=== PATIENT | female | born 1990 | race African-American/Black ===

== ENCOUNTER 2021-12-09 06:49 | Emergency (ER) | payer MEDICAID, SELFPAY ==
--- NOTE | ~2021-12-09 | CT_ITS ---
EXAMINATION: CT ABDOMEN AND PELVIS WITH CONTRAST CLINICAL INFORMATION: Status post gastrectomy with the sleeve and abdominal pain. COMPARISON: None TECHNIQUE: Multidetector volumetric images were obtained from the superior aspect of the liver through the pubic symphysis following administration 85 mL of Omnipaque 350 intravenous contrast. Sagittal and coronal reformatted images were obtained on the technologist's workstation. Oral contrast: No This CT examination was performed using dose optimization techniques as appropriate, variously including the following: *Automated exposure control *Adjustment of mA and/or kV according to patient size (this includes techniques or standardized protocols for targeted exams where dose is matched to indication/reason for exam; i.e. extremities or head) *Use of iterative reconstruction technique DLP: 987 mGy-cm FINDINGS: LUNG BASES: The visualized lung bases are unremarkable. No pleural or pericardial effusion. LIVER, GALLBLADDER, AND BILIARY TREE: The liver is normal in size, shape, and attenuation. No focal hepatic lesion or biliary ductal dilatation is present. The gallbladder is unremarkable with no evidence of radiopaque gallstones, gallbladder wall thickening, or obvious pericholecystic inflammatory changes. PANCREAS: No pancreatic masses appreciated. The pancreatic borders are poorly defined however no definite. Pancreatic fluid is identified and no significant stranding within adjacent fat is seen however mild or early acute pancreatitis is not excluded. SPLEEN: Unremarkable. ADRENAL GLANDS: Unremarkable. KIDNEYS AND URETERS: The kidneys are normal in size, shape, and attenuation. No hydronephrosis, hydroureter, or calculi seen. No perinephric stranding. BLADDER: Unremarkable. GASTROINTESTINAL TRACT: No dilated loops of large or small bowel are identified. No free air or free fluid. Patient status post gastric surgery. No evidence of colitis. The appendix is visualized and appears unremarkable. ABDOMINAL WALL: There is a small fat-containing umbilical hernia. LYMPH NODES: No lymphadenopathy appreciated. VASCULAR: Portal vein patent. No significant calcified plaque identified within the arterial system. No abdominal aortic aneurysm. PELVIC VISCERA: Unremarkable. OSSEOUS STRUCTURES: No acute destructive bony lesion identified. CT/CT abdomen pelvis w con IMPRESSION: Status post gastric surgery with no evidence of leak. Indistinctness of the pancreatic borders which may be related to early or mild acute pancreatitis. No evidence of obstructive uropathy. No evidence of colitis or appendicitis.
[2021-12-09 07:07] VITALS: BP 155/92; PULSE 99; RESP 17; TEMP 36.7; O2SAT 100; BMI 39.6
--- NOTE | 2021-12-09 07:53 | ED_ITS ---
HPI - Nausea/Vomiting/Diarrhea General Chief complaint: Nausea/Vomiting/Diarrhea Stated complaint: abd pain surgery in dec Time Seen by Provider: 12/09/21 07:49 Source: patient Mode of arrival: ambulatory Limitations: no limitations History of Present Illness HPI Narrative: 31 years old female came in for evaluation of abdominal pain, nausea, and nonbloody watery diarrhea. Patient status post gastrectomy sleeve 2 months ago done at [place], patient lost it about 70 lb in the last 2 months, patient also is breast feeding, patient ate cauliflower rice 2 days ago then started to have nonbloody watery diarrhea continuously for the past 2 days, patient feeling nauseous, generally weak, with lightheadedness, patient reported she passed out at home. Patient is supposed to have 2 months post surgery checkup in [place] but unable to drive there. Patient also reported abdominal cramps for 2 days. No sick contacts, no bad food. Related Data Allergies Allergy/AdvReac Type Severity Reaction Status Date / Time labetalol Allergy Hives Verified 12/09/21 07:36 sunflower seed Allergy Hives Verified 12/09/21 07:36 Review of Systems Review of Systems: All other systems are reviewed and are negative Constitutional: Reports as per HPI and Reports no additional constitutional complaints Eyes: Reports as per HPI and Reports no additional eye complaints Reports system reviewed and no additional complaints, except as documented Cardiovascular: Reports as per HPI and Reports no additional cardiovascular complaints Respiratory: Reports as per HPI and Reports no additional respiratory complaints Gastrointestinal: Reports as per HPI and Reports no additional gastrointestinal complaints Genitourinary: Reports no additional female genitourinary complaints Musculoskeletal: Reports no additional musculoskeletal complaints Skin/Breast: Reports system reviewed and no additional complaints, except as docu Psychiatric: Reports no additional psychiatric complaints Endocrine: Reports no additional endocrine complaints Hematologic/Lymphatic: Reports no additional hematologic/lymphatic complaints Allergic/Immunologic: Reports no additional allergic/immunologic complaints Reports system reviewed and no additional complaints, except as documented and Reports Abnormal speech present [facility] Past Medical History Medical History Hypertension PCOS (polycystic ovarian syndrome) Pre-eclampsia Surgical History S/P gastric sleeve procedure Social History Social History Advance Directives: No Advance Directives Information Provided: No Patient : No Physical Exam Vital Signs: Vital Signs: Last Vital Signs Temp 98.6 F 12/09/21 12:05 Pulse 64 12/09/21 12:05 Resp 18 12/09/21 12:05 BP 121/52 L 12/09/21 12:05 Pulse Ox 100 12/09/21 12:05 BMI result Body Mass Index 39.6 Vital signs have been reviewed as appeared to be correct. Blood pressure normal. Heart rate normal. Respiration rate normal. Temperature normal. Oxygen saturation normal. Appearance: Alert. Oriented X3. No acute distress. Head: Normal external exam. Normocephalic. Atraumatic. No Castillo signs noted. No raccoon eyes noted Eyes: PERRLA. EOMI. Conjunctiva and sclera normal. Eyelids normal. ENT: TM's Normal. Pharynx normal. Uvula midline. Moist mucous membranes. No trismus noted. No drooling noted. No muffled voice noted. Neck: Normal inspection. Neck supple. FROM. No adenopathy. Thyroid Normal. No meningeal signs. No neck mass noted. CVS: Normal heart rate and rhythm. Heart sound normal. No murmurs noted. Pulses normal throughout. Respiratory: No respiratory distress. Painless inspiration. Breath sounds normal. No wheezes/rales/rhonchi noted. Chest nontender. No accessory muscle usage noted or decreased air movement noted. Abdomen: Soft and nontender. Bowel sounds normal in all 4 quadrants. No distention noted. No organomegaly noted. No visible injury noted. Back: No CVA tenderness. Full range of motion noted. Skin: Skin warm and dry. Normal skin color. Normal skin turgor. No rashes/lesions/lacerations noted. Extremities: No lower extremity edema. Extremities exhibit normal range of motion. Extremities nontender. Neuro: Oriented X 3. Cranial nerve exam: II-XII are grossly intact No motor deficit. No sensory deficit. Reflexes normal. Course Course Course Narrative: Assessment and plan. 31-year-old female with history of sleeve gastrectomy surgery 2 months ago, because patient moved to [place] cannot see her surgeon in [place], presented with diarrhea dehydration, patient was hypoglycemic, patient received IV fluids in the emergency department, patient now feels better, CT of the abdomen pelvis describing early or mild acute pancreatitis however serum lipase is not reflecting acute pancreatitis also patient has a nontender abdominal exam. the bariatric surgery department wellcome the patient to transfer her records further office. Patient was provided with the phone number to make an appointment with them. MDM - Nausea/Vomiting/Diarrhea Lab Data Attestation: I reviewed the patient's lab results. Result diagrams: 12/09/21 08:05 12/09/21 08:05 Labs: Lab Results 12/09/21 12/09/21 12/09/21 Range/Units 08:05 08:05 08:05 WBC 5.3 (4.8-10.8) X10*3/uL RBC 4.59 (4.20-5.50) X10*6/uL Hgb 12.6 (12.0-16.0) g/dl Hct 40.2 (37.0-47.0) % MCV 87.6 (80.0-98.0) fL MCH 27.5 (27.0-33.0) pg MCHC 31.3 (31.0-35.0) g/dl RDW 15.9 (11.0-16.0) % Plt Count 234 (160-400) X10*3/uL MPV 10.8 (9.4-12.3) fL Immature Gran % (Auto) 0.2 (0.0-0.4) % Neut % (Auto) 68.2 (45-73) % Lymph % (Auto) 21.2 (20-40) % [place] % (Auto) 9.2 (2-11) % Eos % (Auto) 0.8 (0-4) % Baso % (Auto) 0.4 (0-2) % Lymph # (Auto) 1.1 L (1.2-4.9) X10*3/uL Montgomery # (Auto) 0.5 (0.1-1.2) X10*3/uL Eos # (Auto) 0.0 (0.0-0.4) X10*3/uL Baso # (Auto) 0.0 (0.0-0.2) X10*3/uL Abs Immat Gran (auto) 0.01 (0.00-0.03) X10*3/uL Absolute Neuts (auto) 3.6 (2.0-8.3) x10*3/uL Absolute Nucleated RBC 0.000 (0.0-0.012) X10*3/uL Nucleated RBC % (auto) 0.0 (0.0-0.2) /100WBC Sodium 138 (135-145) mmol/L Potassium 4.1 (3.3-5.1) mmol/L Chloride 107 (96-108) mmol/L Carbon Dioxide 15 L (22-29) mmol/L Anion Gap 20 (12-20) BUN 8 L (9-16) mg/dL Creatinine 0.83 (0.5-1.4) mg/dL Estim Creat Clear Calc 123.1 Estimated GFR > 60 Random Glucose 58 L* (60-115) mg/dL Calcium 10.0 (8.4-10.2) mg/dL Total Bilirubin 0.6 (0.0-1.0) mg/dL Direct Bilirubin 0.2 (0.0-0.5) mg/dL AST 39 H (5-31) U/L ALT 14 (0-31) U/L Alkaline Phosphatase 63 (39-117) U/L Total Protein 7.2 (6.5-8.0) g/dL Albumin 4.0 (3.5-5.0) g/dL Lipase 28 (8-78) U/L Beta HCG, Quant < 2 mIU/mL Urine Color Urine Appearance Urine pH (5.0-8.0) Ur Specific [place] (1.005-1.025) Urine Protein (NEG-TRACE) MG/DL Urine Glucose (UA) (NEG) MG/DL Urine Ketones (NEG) MG/DL Urine Blood (NEG) Urine Nitrite (NEG) Ur Leukocyte Esterase (NEG) Urine RBC (0) /HPF Urine WBC (0-4) /HPF Ur Squamous Epith Cells /LPF Urine Bacteria /LPF Urine Test (NEGATIVE) COVID-19 ([facility]ILIA) Negative (Negative) COVID-19 Clin Com See Note 12/09/21 12/09/21 Range/Units 11:21 11:21 WBC (4.8-10.8) X10*3/uL RBC (4.20-5.50) X10*6/uL Hgb (12.0-16.0) g/dl Hct (37.0-47.0) % MCV (80.0-98.0) fL MCH (27.0-33.0) pg MCHC (31.0-35.0) g/dl RDW (11.0-16.0) % Plt Count (160-400) X10*3/uL MPV (9.4-12.3) fL Immature Gran % (Auto) (0.0-0.4) % Neut % (Auto) (45-73) % Lymph % (Auto) (20-40) % Montgomery % (Auto) (2-11) % Eos % (Auto) (0-4) % Baso % (Auto) (0-2) % Lymph # (Auto) (1.2-4.9) X10*3/uL Montgomery # (Auto) (0.1-1.2) X10*3/uL Eos # (Auto) (0.0-0.4) X10*3/uL Baso # (Auto) (0.0-0.2) X10*3/uL Abs Immat Gran (auto) (0.00-0.03) X10*3/uL Absolute Neuts (auto) (2.0-8.3) x10*3/uL Absolute Nucleated RBC (0.0-0.012) X10*3/uL Nucleated RBC % (auto) (0.0-0.2) /100WBC Sodium (135-145) mmol/L Potassium (3.3-5.1) mmol/L Chloride (96-108) mmol/L Carbon Dioxide (22-29) mmol/L Anion Gap (12-20) BUN (9-16) mg/dL Creatinine (0.5-1.4) mg/dL Estim Creat Clear Calc Estimated GFR Random Glucose (60-115) mg/dL Calcium (8.4-10.2) mg/dL Total Bilirubin (0.0-1.0) mg/dL Direct Bilirubin (0.0-0.5) mg/dL AST (5-31) U/L ALT (0-31) U/L Alkaline Phosphatase (39-117) U/L Total Protein (6.5-8.0) g/dL Albumin (3.5-5.0) g/dL Lipase (8-78) U/L Beta HCG, Quant mIU/mL Urine Color YELLOW Urine Appearance CLEAR Urine pH 6.0 (5.0-8.0) Ur Specific [place] 1.025 (1.005-1.025) Urine Protein NEG (NEG-TRACE) MG/DL Urine Glucose (UA) NEG (NEG) MG/DL Urine Ketones >=80 (NEG) MG/DL Urine Blood NEG (NEG) Urine Nitrite NEG (NEG) Ur Leukocyte Esterase NEG (NEG) Urine RBC 0 (0) /HPF Urine WBC 0 (0-4) /HPF Ur Squamous Epith Cells TRACE /LPF Urine Bacteria NONE /LPF Urine Test NEGATIVE (NEGATIVE) COVID-19 ([facility]ILIA) (Negative) COVID-19 Clin Com Imaging Data CT scan - abdomen: Attestation: I personally reviewed and interpreted this imaging study as follows: Radiologist's impression: Status post gastric surgery with no evidence of leak. ? Indistinctness of the pancreatic borders which may be related to early or mild acute pancreatitis. ? No evidence of obstructive uropathy. ? No evidence of colitis or appendicitis.? ? ? Discharge Plan Discharge Clinical Impression: Dehydration, Diarrhea, Hypoglycemia Patient Disposition: Home, Self-Care Instructions: Dehydration (ED), Non-diabetic Hypoglycemia (ED) Additional Instructions: Call our bariatric surgery department at [phone] please mention that the ED staff contacted [facility]. Referrals: Enrique Ruiz MD [Physician] - 2 days
[2021-12-09 08:09] LABS: MANUAL DIFF FLAG NO
[2021-12-09] MEDS: 0.9 % Sodium Chloride 1,779 ML 1779 ML IV (08:09)
[2021-12-09 08:11] LABS: Basophils Percent Auto 0.4 % (0-2); Eosinophils Percent Auto 0.8 % (0-4); Hematocrit 40.2 % (37.0-47.0); Hemoglobin 12.6 g/dl (12.0-16.0); Imm Gran Abs Auto 0.01 X10*3/uL (0.00-0.03); Imm Gran Pct Auto 0.2 % (0.0-0.4); Lymphocytes Absolute Auto 1.1 X10*3/uL (1.2-4.9); Lymphocytes Percent Auto 21.2 % (20-40); Mean Corpuscular HGB Conc 31.3 g/dl (31.0-35.0); Mean Corpuscular Hemoglobin 27.5 pg (27.0-33.0); Mean Corpuscular Volume 87.6 fL (80.0-98.0); Mean Platelet Volume 10.8 fL (9.4-12.3); Monocytes Absolute Auto 0.5 X10*3/uL (0.1-1.2); Monocytes Percent Auto 9.2 % (2-11); Neutrophils Absolute Auto 3.6 x10*3/uL (2.0-8.3); Neutrophils Percent Auto 68.2 % (45-73); Platelet Count 234 X10*3/uL (160-400); Red Blood Count 4.59 X10*6/uL (4.20-5.50); Red Cell Distribution Width 15.9 % (11.0-16.0); White Blood Count 5.3 X10*3/uL (4.8-10.8)
[2021-12-09 08:28] LABS: Alanine Aminotransferase 14 U/L (0-31); Alkaline Phosphatase 63 U/L (39-117); Anion Gap 20 (12-20); Aspartate Amino Transferase 39 U/L (5-31); Bilirubin Direct 0.2 mg/dL (0.0-0.5); Bilirubin Total 0.6 mg/dL (0.0-1.0); Blood Urea Nitrogen 8 mg/dL (9-16); Carbon Dioxide 15 mmol/L (22-29); Chloride 107 mmol/L (96-108); Creatinine Clr Calc Pharmacy 123.1; Estimated Glomerular Filt Rate > 60; Glucose Random 58 mg/dL (60-115); Lipase 28 U/L (8-78); Potassium 4.1 mmol/L (3.3-5.1); Sodium 138 mmol/L (135-145); Total Protein 7.2 g/dL (6.5-8.0)
[2021-12-09 08:31] LABS: COVID-19 Test Negative (Negative)
[2021-12-09 08:48] VITALS: BP 157/104; PULSE 73; RESP 16; O2SAT 100
[2021-12-09 10:37] LABS: HCG Quantitative < 2 mIU/mL
[2021-12-09 10:41] VITALS: BP 143/83; PULSE 71; RESP 12; O2SAT 100
[2021-12-09 10:42] VITALS: BP 148/93; PULSE 78
[2021-12-09 10:44] VITALS: BP 130/97; PULSE 95
[2021-12-09] MEDS: iohexoL 350 MG/ML 100 ML INFUS..BTL IV (11:17)
[2021-12-09 11:35] LABS: Appearance Urine CLEAR; Color Urine YELLOW; Glucose Urine UA NEG (NEG); Leukocyte Esterase Urine NEG (NEG); Nitrite Urine NEG (NEG); Specific Gravity - Urine 1.025 (1.005-1.025); Urine Blood NEG (NEG); Urine Ketones >=80 MG/DL (NEG); Urine Protein NEG (NEG-TRACE)
[2021-12-09 11:36] LABS: UPreg QC Valid YES; Urine Pregnancy NEGATIVE (NEGATIVE)
[2021-12-09 11:51] LABS: RBC Urine 0 /HPF (0); Squamous Epithelial Cell Urine TRACE /LPF; WBC Urine 0 /HPF (0-4)
[2021-12-09 12:05] VITALS: BP 121/52; PULSE 64; RESP 18; TEMP 37; O2SAT 100
== END 2021-12-09 14:07 | disposition home or self-care (01) ==
PROVIDERS: Emergency Provider Emergency Medicine; PCP Nurse Practitioner Family
DX: E86.0 Dehydration (principal); R19.7 Diarrhea, unspecified; E16.2 Hypoglycemia, unspecified; I10 Essential (primary) hypertension; Z20.822 Contact with and (suspected) exposure to COVID-19; Z98.84 Bariatric surgery status
CPT/HCPCS: 36415; 74177; 80048; 80076; 81001; 81025; 83690; 84702; 85025; 87635; 96360; 99284; Q9967

== ENCOUNTER → 2022-01-14 10:52 | Outpatient (BNVA) | payer MEDICAID, SELFPAY | PROVIDERS: PCP Nurse Practitioner Family; Referring Provider Nurse Practitioner Family; Visit Provider Physician Assistant | DX: E66.9 Obesity, unspecified (principal); Z68.36 Body mass index [BMI] 36.0-36.9, adult; R03.0 Elevated blood-pressure reading, without diagnosis of hypertension | CPT/HCPCS: 99202 ==

== ENCOUNTER → 2022-01-19 08:19 | Outpatient (BNVA) | payer MEDICAID, SELFPAY | PROVIDERS: PCP Nurse Practitioner Family; Visit Provider Dietitian, Registered | DX: E66.9 Obesity, unspecified (principal); Z71.3 Dietary counseling and surveillance | CPT/HCPCS: 97802 ==

== ENCOUNTER → 2022-01-27 08:04 | Outpatient (BNVA) | payer MEDICAID, SELFPAY | PROVIDERS: PCP Nurse Practitioner Family; Visit Provider Physician Assistant | DX: Z13.89 Encounter for screening for other disorder (principal) ==

== ENCOUNTER 2022-01-31 07:08 | Outpatient (REF) | payer MEDICAID, SELFPAY ==
[2022-01-31 08:20] LABS: Estimated Average Glucose 97 mg/dL
[2022-01-31 08:34] LABS: C Reactive Protein 0.49 mg/dL (< or = 0.50); Cholesterol 179 mg/dL; HDL Cholesterol 37 mg/dL; LDL Cholesterol Calculated 135 mg/dl; Triglycerides 37 mg/dL
[2022-01-31 08:45] LABS: Insulin 11 uU/mL (2-29); TSH reflex Free T4 1.34 uIU/mL (0.32-4.0)
[2022-02-04 07:01] LABS: Zinc 70 mcg/dL (60-130)
[2022-02-05 12:12] LABS: Vitamin B1 7 nmol/L (8-30)
[2022-02-05 18:36] LABS: Vitamin A 34 mcg/dL (38-98)
== END 2022-01-31 07:09 | disposition home or self-care (01) ==
LOC: HO.LAB 07:08
PROVIDERS: PCP Nurse Practitioner Family; Visit Provider Physician Assistant
DX: O99.210 Obesity complicating pregnancy, unspecified trimester (principal); E66.9 Obesity, unspecified; O24.419 Gestational diabetes mellitus in pregnancy, unspecified control; O26.899 Other specified pregnancy related conditions, unspecified trimester; R03.0 Elevated blood-pressure reading, without diagnosis of hypertension; Z98.890 Other specified postprocedural states; Z90.3 Acquired absence of stomach [part of]
CPT/HCPCS: 36415; 80061; 83036; 83525; 84425; 84443; 84590; 84630; 86140

== ENCOUNTER → 2022-02-01 08:02 | Outpatient (BNVA) | payer MEDICAID, SELFPAY | PROVIDERS: PCP Nurse Practitioner Family; Referring Provider Physician Assistant; Visit Provider Dietitian, Registered | DX: E66.9 Obesity, unspecified (principal); Z68.35 Body mass index [BMI] 35.0-35.9, adult | CPT/HCPCS: 97803 ==

== ENCOUNTER 2022-03-20 10:40 | Emergency (ER) | payer MEDICAID, SELFPAY ==
[2022-03-20 11:01] VITALS: BP 143/88; PULSE 80; RESP 18; TEMP 36.2; O2SAT 99; BMI 35.2
--- NOTE | 2022-03-20 11:29 | ED.SKABFB ---
HPI - Skin/Abscess/Foreign Bdy General Chief complaint: Skin/Abscess/Foreign Body Stated complaint: Rash on breast Time Seen by Provider: 03/20/22 11:09 Source: patient Mode of arrival: ambulatory Limitations: no limitations History of Present Illness HPI narrative: Patient presents emergency department for evaluation of a rash to the bilateral breast. She reports her son is currently being treated for oral thrush, he is exclusively . States that her nipples are pink, red and painful. Denies fevers, chills, breast pain, erythema, swelling, impaired . Related Data Home Medications Medication Instructions Recorded Confirmed cholecalciferol (vitamin D3) 50 50 mcg PO DAILY 01/14/22 01/14/22 mcg (2,000 unit) capsule [id number] 45 mg-folic cap PO DAILY cap 01/14/22 01/14/22 acid 800 mcg-vit K 120 mcg capsule (Bariatric Multivitamins) sertraline 50 mg tablet (Zoloft) 50 mg PO DAILY 01/14/22 01/14/22 Previous Rx's Medication Instructions Recorded vitamin A palmitate 10,000 unit 10,000 unit PO DAILY #30 tab 02/07/22 tablet miconazole nitrate 2 % topical 1 appl TOPICAL BID #71 g 03/20/22 ointment Allergies Allergy/AdvReac Type Severity Reaction Status Date / Time labetalol Allergy Hives Verified 01/14/22 11:06 sunflower seed Allergy Hives Verified 01/14/22 11:06 Review of Systems Review of Systems: Breast: Positive rash Yes all other systems are reviewed and are negative PMFSH Past Medical History Attestation statement: The following information was validated with the patient. Source: old records reviewed Medical History Hypertension PCOS (polycystic ovarian syndrome) Pre-eclampsia Surgical History Hx of section S/P gastric sleeve procedure Family History Family History Mother Stroke Hypertension Father No problems noted. Brother No problems noted. Brother No problems noted. Sister No problems noted. Sister No problems noted. Son Asthma ADHD Heart murmur Son No problems noted. Social History Social History Alcohol intake: current Alcohol intake frequency: does not drink Patient Tobacco Use Status: Never used Tobacco Advance Directives: No Advance Directives Information Provided: Yes Physical Exam Vital Signs: Vital Signs: Last Vital Signs Temp 97.2 F 03/20/22 11:01 Pulse 80 03/20/22 11:01 Resp 18 03/20/22 11:01 BP 143/88 H 03/20/22 11:01 Pulse Ox 99 03/20/22 11:01 BMI result Body Mass Index 35.2 Vital signs have been reviewed and appeared to be correct. Hypertensive? Heart rate normal.? Respiration rate normal. Temperature normal.? Oxygen saturation normal. Appearance: Alert.?Oriented to person, place and time. No acute distress.?Normal affect. Eyes: Pupils equal, round and reactive to light.? ENT: Pharynx normal.?? Neck: Normal inspection.? Neck supple.?? CVS: Heart sounds normal. Normal heart rate and rhythm.? Pulses normal.?? Respiratory: No respiratory distress.? Lung sounds clear to auscultation bilaterally?? Abdomen: Soft and non-tender. Skin: Skin warm and dry.? Normal skin color.? Breast: Bilateral areola was with mild erythema, dry cracked skin, no fissures. Extremities: No lower extremity edema.? Neuro: Moves all extremities spontaneously. Sensation intact bilaterally. No motor deficits. Ambulates with normal steady gait. Course Course Course Narrative: Patient is a 32-year-old female presenting to the emergency department for a rash to the bilateral breasts, who son is currently exclusively breast feeding and being treated for oral thrush. She has not yet trialed any treatment. Breasts are not erythematous, red, swollen, or engorged, no axillary adenopathy or pain, therfore not consistent with mastitis. consistent with candidal infection of the breast, discussed treatment with miconazole cream, propria application and cleansing, advised use of bacitracin should fissures developed, advised follow-up with primary care provider in 1 week if symptoms not completely resolved. In addition did advise that she should continue applying miconazole for 1-2 weeks after resolution of the rash. Discussed reasons to return back to the emergency department. All questions were answered and she was discharged home stable condition. MDM - Skin/Abscess/Foreign Bdy Medical Records Attestation: I reviewed the patient's medical records. Discharge Plan Discharge Clinical Impression: Candidiasis of breast Patient Disposition: Home, Self-Care Instructions: Yeast Infection (ED) Additional Instructions: As we discussed, after breast-feeding cleanse the breast/areola with mild soap and water, pat dry. Apply miconazole cream a light layer. You may cleanse the breast and areola prior to breast feeding again. you should begin to notice some improvement in 2-3 days. If symptoms are not completely resolved in 7 days please contact your primary care provider to schedule a follow-up visit. In addition, if you develop cracking in the skin/fissures as we discussed you may apply bacitracin to this. Prescriptions: New miconazole nitrate 2 % ointment 1 appl topical BID Qty: 71 0RF No Action vitamin A palmitate 10,000 unit tablet 10,000 unit PO DAILY Qty: 30 3RF cholecalciferol (vitamin D3) 50 mcg (2,000 unit) capsule 50 mcg PO DAILY 0RF sertraline [Zoloft] 50 mg tablet 50 mg PO DAILY 0RF Bariatric Multivitamins 45 mg iron- 800 mcg-120 mcg capsule PO DAILY 0RF Interventions: ED Discharge Assessment Last Done: 03/20/22 11:39 Discharge Date/Time: 03/20/22 11:40
== END 2022-03-20 11:40 | disposition home or self-care (01) ==
PROVIDERS: Emergency Provider Student in an Organized Health Care Education/Training Program; PCP Nurse Practitioner Family
DX: Z39.1 Encounter for care and examination of lactating mother (principal); B37.89 Other sites of candidiasis; R21 Rash and other nonspecific skin eruption; Z90.3 Acquired absence of stomach [part of]
CPT/HCPCS: 99283

== ENCOUNTER 2022-04-28 02:45 | Emergency (ER) | payer MEDICAID, SELFPAY ==
[2022-04-28 03:26] VITALS: BP 149/96; PULSE 68; RESP 16; TEMP 36.6; O2SAT 98; BMI 33.4
[2022-04-28 03:43] LABS: Strep A Nucleic Acid Negative (Negative)
[2022-04-28 03:48] LABS: COVID-19 Test Negative (Negative)
--- NOTE | 2022-04-28 04:04 | ED_ITS ---
HPI - URI/Sore Throat General Chief Complaint: General Medical Stated Complaint: Sore throat Time Seen by Provider: 04/28/22 04:03 Source: patient Mode of arrival: ambulatory Limitations: no limitations History of Present Illness HPI Narrative: Patient complaining of sore throat since yesterday got worse today no fever no chills painful to swallow no fever no cough no shortness of breath Related Data Home Medications Medication Instructions Recorded Confirmed cholecalciferol (vitamin D3) 50 50 mcg PO DAILY 01/14/22 01/14/22 mcg (2,000 unit) capsule [id number] 45 mg-folic cap PO DAILY 01/14/22 01/14/22 acid 800 mcg-vit K 120 mcg capsule (Bariatric Multivitamins) sertraline 50 mg tablet (Zoloft) 50 mg PO DAILY 01/14/22 01/14/22 Previous Rx's Medication Instructions Recorded vitamin A palmitate 10,000 unit 10,000 unit PO DAILY #30 tabs 02/07/22 tablet miconazole nitrate 2 % topical 1 appl topical BID #71 grams 03/20/22 ointment amoxicillin 500 mg capsule 500 mg PO TID #21 caps 04/28/22 Allergies Allergy/AdvReac Type Severity Reaction Status Date / Time labetalol Allergy Hives Verified 01/14/22 11:06 sunflower seed Allergy Hives Verified 01/14/22 11:06 Review of Systems Review of Systems: Yes all other systems are reviewed and are negative [facility] Past Medical History Medical History Hypertension PCOS (polycystic ovarian syndrome) Pre-eclampsia Surgical History Hx of section S/P gastric sleeve procedure Family History Family History Mother Stroke Hypertension Father No problems noted. Brother No problems noted. Brother No problems noted. Sister No problems noted. Sister No problems noted. Son Asthma ADHD Heart murmur Son No problems noted. Social History Social History Alcohol intake: current Alcohol intake frequency: does not drink Patient Tobacco Use Status: Never used Tobacco Advance Directives: No Physical Exam Vital Signs: Vital Signs: Last Vital Signs Temp 97.8 F 04/28/22 03:26 Pulse 68 04/28/22 03:26 Resp 16 04/28/22 03:26 BP 149/96 H 04/28/22 03:26 Pulse Ox 98 04/28/22 03:26 O2 Del Method 04/28/22 03:26 BMI result Body Mass Index 33.4 Appearance: Alert. Oriented X3. No acute distress. ENT: Pharynx normal. Oral Mucosa moist no exudate tonsils normal Neck: Normal inspection. Neck supple. No lymphadenopathy CVS: Normal heart rate and rhythm. Pulses normal. Respiratory: No respiratory distress. Equal air entry bilateral, no wheezing/rales/rhonchi Skin: Skin warm and dry. Normal skin color. Normal skin turgor. Extremities: No lower extremity edema. Neuro: Oriented X 3. MDM - URI/Sore Throat Lab Data Labs: Lab Results 04/28/22 04/28/22 Range/Units 03:30 03:30 COVID-19 ([facility]) Negative (Negative) COVID-19 Clin Com See Note S. pyogenes GrpA LORENA Negative (Negative) Discharge Plan Discharge Clinical Impression: Pharyngitis Patient Disposition: Home, Self-Care Instructions: Pharyngitis (ED) Additional Instructions: Saline gargles Antibiotic as prescribed Follow-up with PCP Prescriptions: New amoxicillin 500 mg capsule 500 mg PO TID Qty: 21 0RF No Action vitamin A palmitate 10,000 unit tablet 10,000 unit PO DAILY Qty: 30 3RF miconazole nitrate 2 % ointment 1 appl topical BID Qty: 71 0RF cholecalciferol (vitamin D3) 50 mcg (2,000 unit) capsule 50 mcg PO DAILY sertraline [Zoloft] 50 mg tablet 50 mg PO DAILY Bariatric Multivitamins 45 mg iron- 800 mcg-120 mcg capsule PO DAILY
--- NOTE | 2022-04-28 04:17 | PC.NURSE ---
pt a&o, no sob or chest pain. provider in to assess pt. labs collected and sent. pt medicated per Dec and Discharged home.
[2022-04-28] MEDS: Amoxicillin 500 MG CAPSULE PO (04:22)
--- NOTE | 2022-04-28 04:25 | PC.NURSE ---
pt medicated at discharge.
== END 2022-04-28 04:26 | disposition home or self-care (01) ==
PROVIDERS: Emergency Provider Internal Medicine
DX: J02.9 Acute pharyngitis, unspecified (principal); Z20.822 Contact with and (suspected) exposure to COVID-19; Z79.899 Other long term (current) drug therapy
CPT/HCPCS: 87635; 87651; 99283; 99284

== ENCOUNTER → 2022-05-05 11:05 | Outpatient (BNVA) | payer MEDICAID, SELFPAY | PROVIDERS: Referring Provider Physician Assistant; Visit Provider Physician Assistant Surgical | DX: E66.9 Obesity, unspecified (principal); R03.0 Elevated blood-pressure reading, without diagnosis of hypertension; Z90.3 Acquired absence of stomach [part of]; Z68.32 Body mass index [BMI] 32.0-32.9, adult | CPT/HCPCS: 99212 ==

== ENCOUNTER → 2022-08-10 14:12 | Outpatient (BNVA) | payer MEDICAID, SELFPAY | PROVIDERS: Visit Provider Physician Assistant Surgical | DX: E66.9 Obesity, unspecified (principal); Z68.31 Body mass index [BMI] 31.0-31.9, adult; Z98.84 Bariatric surgery status; Z90.3 Acquired absence of stomach [part of] | CPT/HCPCS: 99212 ==

== ENCOUNTER 2022-11-25 08:44 | Emergency (ER) | payer MEDICAID, SELFPAY ==
--- NOTE | ~2022-11-25 | US_ITS ---
EXAMINATION: US OBSTETRICAL ULTRASOUND CLINICAL INFORMATION: Cramping and bleeding COMPARISON: None. LMP: 10/20/2022. Gestational age by maternal dates is 5 weeks 1 day. Estimated date of delivery by maternal dates is 07/27/2023. TECHNIQUE: Ultrasound of the maternal pelvis is performed using transabdominal and transvaginal transducers. Transvaginal imaging is performed due to inadequate visualization transabdominally. M-mode Doppler is also performed. FINDINGS: There is no intrauterine gestational sac identified. Small amount of fluid seen within the endometrial cavity. No endometrial thickening, with the endometrium with fluid measuring up to 0.3 cm. MATERNAL ADNEXA: The right maternal ovary measures 2.4 x 2.4 x 1.5 cm. The left maternal ovary measures 3.1 x 3.3 x 1.7 cm. There is no significant maternal adnexal mass. Trace pelvic ascites. US/US OB pelvic and transvaginal IMPRESSION: There is no intrauterine identified. No ectopic seen. Small amount of endometrial fluid. Close continued follow-up recommended.
[2022-11-25 08:46] VITALS: BP 150/100; PULSE 75; RESP 20; TEMP 36.6; O2SAT 100; BMI 31.1
[2022-11-25 09:15] LABS: MANUAL DIFF FLAG NO
[2022-11-25 09:18] LABS: Basophils Percent Auto 0.3 % (0-2); Eosinophils Absolute Auto 0.1 X10*3/uL (0.0-0.4); Eosinophils Percent Auto 1.2 % (0-4); Hematocrit 38.8 % (37.0-47.0); Hemoglobin 12.7 g/dl (12.0-16.0); Imm Gran Abs Auto 0.02 X10*3/uL (0.00-0.03); Imm Gran Pct Auto 0.3 % (0.0-0.4); Lymphocytes Absolute Auto 1.9 X10*3/uL (1.2-4.9); Lymphocytes Percent Auto 28.8 % (20-40); Mean Corpuscular HGB Conc 32.7 g/dl (31.0-35.0); Mean Corpuscular Volume 85.5 fL (80.0-98.0); Mean Platelet Volume 10.1 fL (9.4-12.3); Monocytes Absolute Auto 0.5 X10*3/uL (0.1-1.2); Monocytes Percent Auto 7.7 % (2-11); Neutrophils Absolute Auto 4.1 x10*3/uL (2.0-8.3); Neutrophils Percent Auto 61.7 % (45-73); Platelet Count 217 X10*3/uL (160-400); Red Blood Count 4.54 X10*6/uL (4.20-5.50); Red Cell Distribution Width 13.7 % (11.0-16.0); White Blood Count 6.6 X10*3/uL (4.8-10.8)
--- NOTE | 2022-11-25 09:38 | ED_ITS ---
HPI - General Adult General Chief complaint: Vaginal Bleeding Stated complaint: ? Miscarriage Time Seen by Provider: 11/25/22 09:19 Source: patient Mode of arrival: ambulatory History of Present Illness HPI narrative: 32-year-old female with a past medical history of HTN, PCOS, preeclampsia, presenting to the ED complaining of suspected miscarriage, patient reports LMP 10/20/2022. denies this being confirmed , reports with her PCOS does not test positive on urine or blood hCG levels until about 12 weeks gestation. States symptoms for similar to prior miscarriages, reports dizziness/lightheadedness, presyncopal episode this morning, lower abdominal cramping, and vaginal bleeding x today. reports associated nausea and vomiting. Denies taking anticoagulation. Denies LOC, headache, CP/ SOB, dysuria, vaginal discharge Onset (ago): hour(s) Related Data Home Medications Medication Instructions Recorded Confirmed [id number] 45 mg-folic cap PO DAILY 01/14/22 08/10/22 acid 800 mcg-vit K 120 mcg capsule (Bariatric Multivitamins) sertraline 50 mg tablet (Zoloft) 50 mg PO DAILY 01/14/22 08/10/22 nifedipine 30 mg tablet,extended 30 mg PO DAILY 08/10/22 08/10/22 release Previous Rx's Medication Instructions Recorded vitamin A palmitate 10,000 unit 10,000 unit PO DAILY #30 tabs 02/07/22 tablet miconazole nitrate 2 % topical 1 appl topical BID #71 grams 03/20/22 ointment clotrimazole 1 % topical cream 1 appl topical BID #45 grams 08/10/22 nitrofurantoin 100 mg PO Q12H 7 days #14 caps 11/25/22 monohydrate/macrocrystals 100 mg capsule (Macrobid) Allergies Allergy/AdvReac Type Severity Reaction Status Date / Time labetalol Allergy Hives Verified 08/10/22 14:19 sunflower seed Allergy Hives Verified 08/10/22 14:19 Review of Systems Review of Systems: Constitutional: No Fever, No Chills, +Fatigue, No Malaise ENT/Mouth: No Hearing loss, No Ear Pain, No Nasal Congestion, No sore throat Eyes: No Eye Pain, No Swelling, No Redness, No Vision Changes Cardiovascular: No Chest Pain, No SOB, No Palpitations Respiratory: No Cough, No Sputum, No Dyspnea Gastrointestinal: + Nausea, + Vomiting, No Diarrhea, No Constipation, + Abdominal pain Genitourinary: + irregular bleeding, No Dysuria, No Urinary Frequency, No Hematu glen, No Urinary Incontinence/retention, No Urgency, No Flank Pain Musculoskeletal: No joint pain, No Myalgias, No Joint Swelling Skin: No Skin Lesions, No rash Neuro: + Weakness, No Numbness, No Paresthesias, No Loss of Consciousness, +Dizziness, No Headache Yes all other systems are reviewed and are negative Constitutional: Constitutional: Reports as per HPI Neurologic: Denies Abnormal speech present FOR[facility]LY [facility], [facility] Past Medical History Attestation statement: The following information was validated with the patient. Medical History Hypertension PCOS (polycystic ovarian syndrome) Pre-eclampsia Surgical History Hx of section S/P gastric sleeve procedure Family History Family History Mother Stroke Hypertension Father No problems noted. Brother No problems noted. Brother No problems noted. Sister No problems noted. Sister No problems noted. Son Asthma ADHD Heart murmur Son No problems noted. Social History Social History Alcohol intake: current Alcohol intake frequency: holidays/special occasions only Patient Tobacco Use Status: Never used Tobacco Advance Directives: No Advance Directives Information Provided: Yes Physical Exam ED Vital Signs: Vital Signs - 24 hr 11/25/22 08:46 Temperature 97.9 F Pulse Rate 75 Respiratory Rate 20 Blood Pressure 150/100 H Pulse Oximetry 100 Oxygen Delivery Method Room Air BMI result Body Mass Index 31.1 Const General: cooperative, healthy appearing, comfortable and no acute distress Orientation/consciousness: patient oriented x3 Limitations: no limitations HENMT Head: Yes normal to inspection and Yes atraumatic Ears: hearing grossly normal bilaterally General nose exam: Normal external nose present Face and sinus: Yes normal facial exam Eyes General: appearance normal, both eyes and all related structures Pupils: Equal, round and reactive pupils present EOM: EOMs intact bilaterally Neck Neck: Yes normal visual inspection and Yes no meningeal signs Resp Effort & Inspection: normal respiratory effort and no respiratory distress Auscultation: clear to auscultation bilaterally, no crackles and no rales Cardio Rate: regular rate Heart sounds: S1 normal heart sound present and S2 normal heart sound present GI Inspection: Yes normal to inspection Palpation (GI): Soft to palpation, nontender, no guarding and not rigid Other: Bimanual exam deferred General: Yes no CVA tenderness Speculum Exam - Vagina: normal vaginal discharge, no lesions and vaginal bleeding ( no active hemorrhage) OB/external & speculum: vaginal bleeding ( no active hemorrhage) Back/Spine/Pelvis Back: no CVA tenderness Skin Rashes: no rashes Wounds: no wounds Neuro General: patient oriented x3, gait normal, tone normal, no meningeal signs, no focal motor deficits and CN's II-XI intact bilaterally Cranial nerves: Yes CN's II-XII intact bilaterally and Yes Equal, round and reactive pupils present Cognition (Neuro): normal cognition Speech: No Abnormal speech present Gait exam (Neuro): Normal gait present Motor exam (neuro): 5/5 motor strength present throughout Extrem General: Yes normal to inspection Course Course Course Narrative: -[id number]-- labs reassuring. Beta-hCG negative. US OB pelvic and transvaginal IMPRESSION: There is no intrauterine identified. No ectopic seen. Small amount of endometrial fluid. Close continued follow-up recommended. > likely from vaginal bleeding, suspect patient on menses -UA infected and with blood > patient given 1st dose of p.o. Macrobid in the ED Results discussed with patient including worrisome signs and symptoms and strict return precautions, in needed close follow-up with PCP/OBGYN. Discussed when to return to the emergency department. She verbalized understanding and feel safe for discharge at this time. Medications Administered Discontinued Medications Generic Name Dose Route Start Last Admin Trade Name Freq PRN Reason Stop Dose Admin Sodium Chloride 1,000 mls @ 999 mls/hr 11/25/22 09:30 11/25/22 10:03 Ns IV 11/25/22 10:30 999 mls/hr .Q1H1M PRIMO Administration Nitrofurantoin Macrocrystals 100 mg 11/25/22 11:08 11/25/22 11:19 Nitrofurantoin Monohyd/M-Cryst 100 Mg Capsule PO 11/25/22 11:09 100 mg ONCE ONE Administration Medical Decision Making Medical Decision Making MDM Narrative: 32-year-old female with a past medical history of HTN, PCOS, preeclampsia, presenting to the ED complaining of suspected miscarriage, patient reports LMP 10/20/2022, reports dizziness/lightheadedness, presyncopal episode this morning, lower abdominal cramping, and vaginal bleeding x today. On exam hypertensive, anxious, lungs CTA, abdomen soft /nontender, no focal neuro deficits, on pelvic exam vaginal bleeding noted without active hemorrhage, no appreciable lesions/ discharge. Bimanual exam deferred. Concern for potential preganncy vs menses vs threatened vs ?missed vs ?ovarian cyst. Lower suspicion for ovarian torsion, appendicitis/ diverticulitis, ACS or PE plan: EKG, labs, UA, ABO, pelvic ultrasound, IVF, re-evaluate Please refer to course for remaining clinical decision making, interpretation of labs/imaging results, and discussions with consultants and/or family members. Differential Diagnosis Differential Diagnoses: The differential diagnosis associated with the presenta tion includes as above Lab Data [facility] Lab Attestation statement: I reviewed the patient's lab results. 11/25/22 09:10 11/25/22 09:10 Labs: Lab Results 11/25/22 11/25/22 11/25/22 Range/Units 09:10 09:10 10:04 WBC 6.6 (4.8-10.8) X10*3/uL RBC 4.54 (4.20-5.50) X10*6/uL Hgb 12.7 (12.0-16.0) g/dl Hct 38.8 (37.0-47.0) % MCV 85.5 (80.0-98.0) fL MCH 28.0 (27.0-33.0) pg MCHC 32.7 (31.0-35.0) g/dl RDW 13.7 (11.0-16.0) % Plt Count 217 (160-400) X10*3/uL MPV 10.1 (9.4-12.3) fL Immature Gran % (Auto) 0.3 (0.0-0.4) % Neut % (Auto) 61.7 (45-73) % Lymph % (Auto) 28.8 (20-40) % [place] % (Auto) 7.7 (2-11) % Eos % (Auto) 1.2 (0-4) % Baso % (Auto) 0.3 (0-2) % Lymph # (Auto) 1.9 (1.2-4.9) X10*3/uL [place] # (Auto) 0.5 (0.1-1.2) X10*3/uL Eos # (Auto) 0.1 (0.0-0.4) X10*3/uL Baso # (Auto) 0.0 (0.0-0.2) X10*3/uL Abs Immat Gran (auto) 0.02 (0.00-0.03) X10*3/uL Absolute Neuts (auto) 4.1 (2.0-8.3) x10*3/uL Absolute Nucleated RBC 0.000 (0.0-0.012) X10*3/uL Nucleated RBC % (auto) 0.0 (0.0-0.2) /100WBC Sodium 140 (135-145) mmol/L Potassium 3.5 (3.3-5.1) mmol/L Chloride 110 H (96-108) mmol/L Carbon Dioxide 25 (22-29) mmol/L Anion Gap 9 L (12-20) BUN 7 L (9-16) mg/dL Creatinine 0.81 (0.5-1.4) mg/dL Estim Creat Clear Calc 110.1 Estimated GFR > 60 Random Glucose 86 (60-115) mg/dL Calcium 9.4 (8.4-10.2) mg/dL Magnesium 1.8 (1.6-2.6) mg/dL Total Bilirubin 0.9 (0.0-1.0) mg/dL AST 40 H (5-31) U/L ALT 16 (0-31) U/L Alkaline Phosphatase 62 (39-117) U/L Total Protein 6.9 (6.5-8.0) g/dL Albumin 3.9 (3.5-5.0) g/dL Lipase 15 (8-78) U/L Beta HCG, Quant < 2 mIU/mL Urine Color Urine Appearance Urine pH (5.0-9.0) Ur Specific [place] (1.005-1.025) Urine Protein (Neg-Trace) mg/dL Urine Glucose (UA) (Negative) mg/dL Urine Ketones (Negative) mg/dL Urine Blood (Negative) Urine Nitrite (Negative) Ur Leukocyte Esterase (Negative) Urine RBC (0-2) /HPF Urine WBC (0-5) /HPF Ur Squamous Epith Cells (0-2) /HPF Urine Bacteria (None Seen) Hyaline Casts (0-2) /LPF Urine Test (NEGATIVE) Blood Type O Positive 11/25/22 11/25/22 Range/Units 10:04 10:04 WBC (4.8-10.8) X10*3/uL RBC (4.20-5.50) X10*6/uL Hgb (12.0-16.0) g/dl Hct (37.0-47.0) % MCV (80.0-98.0) fL MCH (27.0-33.0) pg MCHC (31.0-35.0) g/dl RDW (11.0-16.0) % Plt Count (160-400) X10*3/uL MPV (9.4-12.3) fL Immature Gran % (Auto) (0.0-0.4) % Neut % (Auto) (45-73) % Lymph % (Auto) (20-40) % [place] % (Auto) (2-11) % Eos % (Auto) (0-4) % Baso % (Auto) (0-2) % Lymph # (Auto) (1.2-4.9) X10*3/uL [place] # (Auto) (0.1-1.2) X10*3/uL Eos # (Auto) (0.0-0.4) X10*3/uL Baso # (Auto) (0.0-0.2) X10*3/uL Abs Immat Gran (auto) (0.00-0.03) X10*3/uL Absolute Neuts (auto) (2.0-8.3) x10*3/uL Absolute Nucleated RBC (0.0-0.012) X10*3/uL Nucleated RBC % (auto) (0.0-0.2) /100WBC Sodium (135-145) mmol/L Potassium (3.3-5.1) mmol/L Chloride (96-108) mmol/L Carbon Dioxide (22-29) mmol/L Anion Gap (12-20) BUN (9-16) mg/dL Creatinine (0.5-1.4) mg/dL Estim Creat Clear Calc Estimated GFR Random Glucose (60-115) mg/dL Calcium (8.4-10.2) mg/dL Magnesium (1.6-2.6) mg/dL Total Bilirubin (0.0-1.0) mg/dL AST (5-31) U/L ALT (0-31) U/L Alkaline Phosphatase (39-117) U/L Total Protein (6.5-8.0) g/dL Albumin (3.5-5.0) g/dL Lipase (8-78) U/L Beta HCG, Quant mIU/mL Urine Color Yellow Urine Appearance Clear Urine pH 5.5 (5.0-9.0) Ur Specific [place] 1.025 (1.005-1.025) Urine Protein Trace (Neg-Trace) mg/dL Urine Glucose (UA) Negative (Negative) mg/dL Urine Ketones Negative (Negative) mg/dL Urine Blood Large (3+) H (Negative) Urine Nitrite Negative (Negative) Ur Leukocyte Esterase Small (1+) H (Negative) Urine RBC 6-10 H (0-2) /HPF Urine WBC 21-50 H (0-5) /HPF Ur Squamous Epith Cells 3-5 (0-2) /HPF Urine Bacteria None Seen (None Seen) Hyaline Casts 0-2 (0-2) /LPF Urine Test NEGATIVE (NEGATIVE) Blood Type Independent Interpretation I performed an independent interpretation of an: EKG Radiology Impression Discussion of test interpretation with radiology: I have reviewed the radiologist's reading. Discharge Plan Discharge Clinical Impression: Vaginal bleeding, UTI (urinary tract infection) Patient Disposition: Home, Self-Care Instructions: Urinary Tract Infection in Women (ED), Menorrhagia (ED) Additional Instructions: your ultrasound does not identify an intrauterine or ectopic. There is small amount of fluid in her endometrial canal. Please call your OBGYN for close follow-up your blood work was reassuring. We did test you for STIs, the results will be back in a few days You do have a UTI, Macrobid is an antibiotic please take as prescribed If symptoms persist or worsen pain becomes constant arm bearable, you have fever, persistent unremitting pain return to the ED Prescriptions: New nitrofurantoin monohyd/m-cryst [Macrobid] 100 mg capsule 100 mg PO Q12H 7 Days Qty: 14 0RF Rx Instructions: must administer with a meal/food No Action vitamin A palmitate 10,000 unit tablet 10,000 unit PO DAILY Qty: 30 3RF miconazole nitrate 2 % ointment 1 appl topical BID Qty: 71 0RF sertraline [Zoloft] 50 mg tablet 50 mg PO DAILY Bariatric Multivitamins 45 mg iron- 800 mcg-120 mcg capsule PO DAILY nifedipine 30 mg tablet extended release 30 mg PO DAILY clotrimazole 1 % cream 1 appl topical BID Qty: 45 3RF Referrals: [facility] [place] [facility] [Provider Group]
--- NOTE | 2022-11-25 09:46 | ECG_ITS ---
Test Reason : presyncope Blood Pressure : / mmHG Vent. Rate : 064 BPM Atrial Rate : 064 BPM P-R Int : 176 ms QRS Dur : 080 ms QT Int : 398 ms P-R-T Axes : 060 010 024 degrees QTc Int : 410 ms Sinus rhythm with frequent Premature ventricular complexes Otherwise normal ECG No previous ECGs available Referred By: Zee Guevara Electronically Signed By:GIL HERNANDEZ MD
[2022-11-25 10:03] LABS: Alanine Aminotransferase 16 U/L (0-31); Albumin Level 3.9 g/dL (3.5-5.0); Alkaline Phosphatase 62 U/L (39-117); Anion Gap 9 (12-20); Aspartate Amino Transferase 40 U/L (5-31); Bilirubin Total 0.9 mg/dL (0.0-1.0); Blood Urea Nitrogen 7 mg/dL (9-16); Calcium 9.4 mg/dL (8.4-10.2); Carbon Dioxide 25 mmol/L (22-29); Chloride 110 mmol/L (96-108); Creatinine Clr Calc Pharmacy 110.1; Estimated Glomerular Filt Rate > 60; Glucose Random 86 mg/dL (60-115); Potassium 3.5 mmol/L (3.3-5.1); Sodium 140 mmol/L (135-145); Total Protein 6.9 g/dL (6.5-8.0)
[2022-11-25] MEDS: 0.9 % Sodium Chloride 1,000 ML 999 ML IV (10:03)
[2022-11-25 10:05] LABS: Lipase 15 U/L (8-78); Magnesium 1.8 mg/dL (1.6-2.6)
[2022-11-25 10:06] LABS: HCG Quantitative < 2 mIU/mL
--- NOTE | 2022-11-25 10:09 | PC.NURSE ---
Patient resting quietly on stretcher. denies pain or vaginal bleeding at this time. only c/o abd cramping and dizziness. steady gait at this time. IV inserted right hand with IVF infusing. labs draw/sent along with type and screen and rine spec. ECG being done at present. Will continue to monitor
[2022-11-25 10:14] LABS: Appearance Urine Clear; Color Urine Yellow; Glucose Urine UA Negative (Negative); Leukocyte Esterase Urine Small (1+) (Negative); Nitrite Urine Negative (Negative); PH 5.5 (5.0-9.0); Specific Gravity - Urine 1.025 (1.005-1.025); UMIC TRIGGER UACC YES; Urine Blood Large (3+) (Negative); Urine Ketones Negative (Negative); Urine Protein Trace mg/dL (Neg-Trace)
[2022-11-25 10:16] LABS: Bacteria Urine None Seen (None Seen); Hyaline Casts Urine 0-2 /LPF (0-2); UACC Culture Trigger YES; WBC Urine 21-50 /HPF (0-5)
[2022-11-25 10:20] LABS: UPreg QC Valid YES; Urine Pregnancy NEGATIVE (NEGATIVE)
[2022-11-25] MEDS: Nitrofurantoin Monohyd/M-Cryst 100 MG CAPSULE PO (11:19)
[2022-11-25 13:17] LABS: CT PCR NOT DETECTED (Not Detect.); NG PCR NOT DETECTED (Not Detect.)
[2022-11-26 15:08] LABS: BV Int Neg Control Negative (Negative); BV Int Pos Control Positive (Positive)
== END 2022-11-25 11:56 | disposition home or self-care (01) ==
PROVIDERS: Physician Assistant; Emergency Provider Student in an Organized Health Care Education/Training Program
DX: N93.9 Abnormal uterine and vaginal bleeding, unspecified (principal); N39.0 Urinary tract infection, site not specified; R55 Syncope and collapse; R25.2 Cramp and spasm; Z79.899 Other long term (current) drug therapy
CPT/HCPCS: 0353U; 36415; 76801; 76817; 80053; 81001; 81025; 83690; 83735; 84702; 85025; 86900; 86901; 87086; 87480; 87510; 87660; 93005; 96360; 96361; 99284

== ENCOUNTER → 2023-03-17 09:42 | Outpatient (BNVA) | payer OTHER, SELFPAY | PROVIDERS: PCP Nurse Practitioner Family; Visit Provider Physician Assistant Surgical | DX: E66.9 Obesity, unspecified (principal); Z90.3 Acquired absence of stomach [part of]; Z68.32 Body mass index [BMI] 32.0-32.9, adult | CPT/HCPCS: 99212 ==

== ENCOUNTER 2023-03-27 15:42 | Outpatient (REF) | payer OTHER, SELFPAY ==
[2023-03-27 16:00] LABS: MANUAL DIFF FLAG NO
[2023-03-27 16:15] LABS: Basophils Percent Auto 0.4 % (0-2); Eosinophils Absolute Auto 0.2 X10*3/uL (0.0-0.4); Eosinophils Percent Auto 3.4 % (0-4); Hematocrit 36.9 % (37.0-47.0); Hemoglobin 11.6 g/dl (12.0-16.0); Imm Gran Abs Auto 0.02 X10*3/uL (0.00-0.03); Imm Gran Pct Auto 0.4 % (0.0-0.4); Lymphocytes Absolute Auto 2.4 X10*3/uL (1.2-4.9); Lymphocytes Percent Auto 42.5 % (20-40); Mean Corpuscular HGB Conc 31.4 g/dl (31.0-35.0); Mean Corpuscular Volume 89.1 fL (80.0-98.0); Mean Platelet Volume 10.1 fL (9.4-12.3); Monocytes Absolute Auto 0.6 X10*3/uL (0.1-1.2); Neutrophils Absolute Auto 2.4 x10*3/uL (2.0-8.3); Neutrophils Percent Auto 43.3 % (45-73); Platelet Count 214 X10*3/uL (160-400); Red Blood Count 4.14 X10*6/uL (4.20-5.50); White Blood Count 5.6 X10*3/uL (4.8-10.8)
[2023-03-27 16:26] LABS: Estimated Average Glucose 100 mg/dL; Hemoglobin A1c % 5.1 %
[2023-03-27 16:57] LABS: Alanine Aminotransferase 17 U/L (0-31); Albumin Level 3.7 g/dL (3.5-5.0); Alkaline Phosphatase 72 U/L (39-117); Anion Gap 10 (12-20); Aspartate Amino Transferase 44 U/L (5-31); Bilirubin Total 0.3 mg/dL (0.0-1.0); Blood Urea Nitrogen 13 mg/dL (9-16); C Reactive Protein < 0.10 mg/dL (< or = 0.50); Calcium 9.3 mg/dL (8.4-10.2); Carbon Dioxide 21 mmol/L (22-29); Chloride 114 mmol/L (96-108); Cholesterol 155 mg/dL; Estimated Glomerular Filt Rate > 60; Glucose Random 90 mg/dL (60-115); HDL Cholesterol 55 mg/dL; Iron 80 mcg/dL (30-160); LDL Cholesterol Calculated 91 mg/dl; Percent Iron Saturation 30 % (15-50); Potassium 4.4 mmol/L (3.3-5.1); Sodium 141 mmol/L (135-145); Total Iron Binding Capacity 266 mcg/dL (228-428); Total Protein 6.8 g/dL (6.5-8.0); Triglycerides 47 mg/dL; Unsaturated Iron Binding 186 ug/dL
[2023-03-27 17:33] LABS: Ferritin 53 ng/mL (10-122); Folate 9.9 ng/mL (> or = 4.0); Insulin 16 uU/mL (2-29); TSH reflex Free T4 2.02 uIU/mL (0.32-4.0); Vitamin B12 475 pg/mL (200-900)
[2023-04-02 11:49] LABS: Calcium (PTHI) SEE COMMENTS
[2023-04-02 11:50] LABS: PTHI SEE COMMENTS
[2023-04-03 01:37] LABS: Vitamin A 39 mcg/dL (38-98)
== END 2023-03-27 15:43 | disposition home or self-care (01) ==
LOC: HO.LAB 15:42
PROVIDERS: Visit Provider Physician Assistant Surgical
DX: Z90.3 Acquired absence of stomach [part of] (principal)
CPT/HCPCS: 36415; 80053; 80061; 82306; 82607; 82728; 82746; 83036; 83525; 83540; 83970; 84425; 84443; 84590; 84630; 85025; 86140

== ENCOUNTER 2023-04-05 06:00 | Emergency (ER) | payer OTHER, SELFPAY ==
--- NOTE | ~2023-04-05 | XR_ITS ---
EXAMINATION: XR WRIST, RIGHT XR HAND, RIGHT CLINICAL INFORMATION: Injury. COMPARISON: None available. TECHNIQUE: PA, lateral, and oblique views of the right wrist and PA, lateral, and oblique views of the right hand FINDINGS: RIGHT WRIST: The bones and soft tissues are normal. No fracture. Alignment is anatomic. Joint spaces are maintained. No erosions or soft tissue calcifications. RIGHT HAND: The bones and soft tissues are normal. No fracture. Alignment is anatomic. Joint spaces are maintained. No erosions or soft tissue calcifications. XR/XR hand wrist RT IMPRESSION: Normal right hand and wrist.
[2023-04-05 06:05] VITALS: BP 152/74; PULSE 72; RESP 18; TEMP 36.6; O2SAT 99; BMI 32.1
[2023-04-05 07:05] VITALS: BP 154/88; PULSE 67; TEMP 36.4; O2SAT 99
[2023-04-05] MEDS: Lidocaine HCl 1 % MPF 2 ML VIAL INFILTRATI ×2 (07:07→07:08)
--- NOTE | 2023-04-05 07:08 | PC.NURSE ---
provider to administer the lidocaine.
--- NOTE | 2023-04-05 07:20 | ED.EXTPRO ---
HPI - Extremity Problem General Chief complaint: Extremity Injury, Upper Stated complaint: Dislocated R Thumb & Wrist Pain S/P Fall Time Seen by Provider: 04/05/23 06:34 Source: patient Mode of arrival: ambulatory Limitations: no limitations History of Present Illness HPI Narrative: This is a 33-year-old female who is right-hand dominant who had a previous dislocation to the right thumb 1 year ago who presents to the ER with complaints of right thumb pain after a trip and fall down stairs this morning landing on her right upper extremity. No head strike or loss of consciousness with the fall. Patient denies any numbness or tingling of the extremity but does report limited range of motion. Of note, patient reports since her last dislocation she has had chronic pain in the right hand has not been evaluated by any specialist. Related Data Home Medications Medication Instructions Recorded Confirmed gljpouof-dgcmnuog-vrak 45 mg-folic cap PO DAILY 01/14/22 03/17/23 acid 800 mcg-vit K 120 mcg capsule (Bariatric Multivitamins) sertraline 50 mg tablet (Zoloft) 50 mg PO DAILY 01/14/22 03/17/23 nifedipine 30 mg tablet,extended 30 mg PO DAILY 08/10/22 03/17/23 release Allergies Allergy/AdvReac Type Severity Reaction Status Date / Time labetalol Allergy Hives Verified 03/17/23 09:54 sunflower seed Allergy Hives Verified 03/17/23 09:54 Review of Systems Review of Systems: Yes all other systems are reviewed and are negative Constitutional: Constitutional: Reports no additional constitutional complaints, Denies body ache(s), Denies chills, Denies fever(s), Denies headache(s) and Denies weakness Eyes: Eyes: Reports no additional eye complaints and Denies change in vision ENT: Reports system reviewed and no additional complaints, except as documented, Denies dizziness, Denies headache(s), Denies nasal congestion, Denies nasal discharge and Denies neck pain Cardiovascular: Cardiovascular: Reports no additional cardiovascular complaints, Denies chest pain, Denies leg edema and Denies dyspnea Respiratory: Respiratory: Reports no additional respiratory complaints, Denies cough and Denies dyspnea Gastrointestinal: Gastrointestinal: Reports no additional gastrointestinal complaints, Denies abdominal pain, Denies diarrhea, Denies nausea and Denies vomiting Genitourinary: Genitourinary: Reports no additional female genitourinary complaints and Denies urinary incontinence Musculoskeletal: Musculoskeletal: Reports no additional musculoskeletal complaints, Denies back pain, Reports arthralgias, Reports joint swelling, Reports limited range of motion, Denies neck pain, Denies numbness and Denies tingling Integumentary/Breasts: Skin/Breast: Reports system reviewed and no additional complaints, except as docu and Denies rash Neurologic: Reports system reviewed and no additional complaints, except as documented, Denies Abnormal speech present, Denies dizziness, Denies headache(s), Denies numbness, Denies tingling and Denies weakness [facility] Past Medical History Attestation statement: The following information was validated with the patient. Source: old records reviewed and nursing notes reviewed Medical History Hypertension PCOS (polycystic ovarian syndrome) Pre-eclampsia Surgical History Hx of section S/P gastric sleeve procedure Family History Family History Mother Stroke Hypertension Father No problems noted. Brother No problems noted. Brother No problems noted. Sister No problems noted. Sister No problems noted. Son Asthma ADHD Heart murmur Son No problems noted. Social History Social History Alcohol intake: never Patient Tobacco Use Status: Never used Tobacco Smoked in Last 30 Days: No Use of substances other than those prescribed or required for medical reasons: No Advance Directives: No Advance Directives Information Provided: Yes Patient : No Physical Exam Vital Signs: Vital Signs: Last Vital Signs Temp 97.9 F 04/05/23 08:00 Pulse 91 04/05/23 08:00 Resp 14 04/05/23 08:00 BP 151/83 H 04/05/23 08:00 Pulse Ox 98 04/05/23 08:00 O2 Del Method Room Air 04/05/23 08:00 BMI result Body Mass Index 32.1 Const: General: cooperative, healthy appearing, comfortable and no acute distress Orientation/consciousness: patient oriented x3 Limitations: no limitations HEENT: Head: Yes normal to inspection Ears: hearing grossly normal bilaterally General nose exam: Normal external nose present Face and sinus: Yes normal facial exam Mouth: Normal oral and palatal mucosa present Throat: Yes posterior oropharynx normal Eyes: General: appearance normal, both eyes and all related structures Pupils: Equal, round and reactive pupils present Neck: Neck: Yes normal visual inspection Chest: Chest palpation & inspection: normal inspection of the chest Resp: Effort & Inspection: normal respiratory effort Auscultation: clear to auscultation bilaterally Cardio: Rate: regular rate Rhythm: regular rhythm Peripheral pulses: Peripheral pulses 2+ throughout GI: Inspection: Yes normal to inspection Palpation (GI): Soft to palpation and nontender Auscultation: normal bowel sounds Back/Spine/Pelvis: Thoracic/Lumbar Spine: thoracic and lumbar spine normal to inspection Skin: General skin exam: no rashes or lesions noted Neuro: General: patient oriented x3, no focal motor deficits and normal sensation to monofilament Cranial nerves: Yes Equal, round and reactive pupils present Cognition (Neuro): normal cognition Speech: No Abnormal speech present Gait exam (Neuro): Normal gait present Motor exam (neuro): 5/5 motor strength present throughout Extrem: Other: There is a deformity to the base of the right thumb at the MCP with limited flexion and extension Sensation is intact distal No scaphoid tenderness Full range of motion of the wrist General: Yes normal to inspection Course Course Course Narrative: On independent visualization of the x-ray I was concerned the patient may have a partially dislocated MCP. We did attempt a digital block and reduction at the bedside were unsuccessful. She may have underlying UCL injury. I did place the patient in a Velcro thumb spica splint. I will refer her to orthopedics to follow-up. This was reviewed with the patient. Reviewed worrisome signs and symptoms when to return to the emergency room. Comfortable plan for discharge home. Medications Administered Discontinued Medications Generic Name Dose Route Start Last Admin Trade Name Freq PRN Reason Stop Dose Admin Lidocaine HCl 2 ml 04/05/23 06:57 04/05/23 07:07 Lidocaine Hcl 1 % Mpf 2 Ml Vial INFILTRATI 04/05/23 06:58 2 ml ONCE ONE Administration Lidocaine HCl 2 ml 04/05/23 06:57 04/05/23 07:08 Lidocaine Hcl 1 % Mpf 2 Ml Vial INFILTRATI 04/05/23 06:58 2 ml ONCE ONE Administration Lidocaine HCl 2 ml 04/05/23 07:33 04/05/23 08:06 Lidocaine Hcl 1 % Mpf 2 Ml Vial INFILTRATI 04/05/23 07:34 Not Given ONCE ONE Lidocaine HCl 2 ml 04/05/23 07:34 04/05/23 08:06 Lidocaine Hcl 1 % Mpf 2 Ml Vial INFILTRATI 04/05/23 07:35 Not Given ONCE ONE Ondansetron HCl 4 mg 04/05/23 07:33 04/05/23 07:36 Ondansetron Odt 4 Mg Tab.Rapdis TRANSLINGU 04/05/23 07:34 4 mg ONCE ONE Administration Medical Decision Making Medical Decision Making MDM Narrative: 33-year-old female right-hand dominant with previous injury to the right thumb that was treated with reduction an emergency room in [place] 1 year ago who has had subsequent chronic pain presents to the ER with complaints of fall this morning with catching her thumb now with pain and deformity. On exam there is pain, swelling, limited range of motion noted at the right MCP Will check x-ray Differential Diagnosis Differential Diagnoses: The differential diagnosis associated with the presentation includes Dislocation, fracture, UCL injury Consult Healthcare Provider Management of the patient was discussed with: Assistant Store Manager Trainee Spoke to orthopedics concern for UCL injury (cindy) Independent Interpretation I performed an independent interpretation of an: Plain X-Ray Interpretation: I independently reviewed the x-ray. The radiologist's review that x-ray is normal. There does appear to be a dislocation at the right MCP Radiology Impression Discussion of test interpretation with radiology: I have reviewed the radiologist's reading. Radiologist Impression: [address] [address] XRay Report Signed Patient: Ms Augustine MR#: [id number] : 1990 Acct:[id number] Age/Sex: 33 / F ADM Date: 04/05/23 Loc: HO.ED Attending Dr: Ordering Physician: Generic ED Physician Date of Service: 04/05/23 Procedure(s): XR hand wrist RT Accession Number(s): [id number] cc: Generic ED Physician~ EXAMINATION: XR WRIST, RIGHT XR HAND, RIGHT CLINICAL INFORMATION: Injury.? COMPARISON: None available.? TECHNIQUE: PA, lateral, and oblique views of the right wrist and PA, lateral, and oblique views of the right hand FINDINGS: RIGHT WRIST: The bones and soft tissues are normal. No fracture. Alignment is anatomic. Joint spaces are maintained. No erosions or soft tissue calcifications.? RIGHT HAND: The bones and soft tissues are normal. No fracture. Alignment is anatomic. Joint spaces are maintained. No erosions or soft tissue calcifications.? XR/XR hand wrist RT IMPRESSION: Normal right hand and wrist. Procedures Nerve Block Nerve Block 1: Local Anesthetic: lidocaine 1% Amount of anesthesia used (mL): 5 Side: right Nerve Blocks: digital Procedure Successful: Yes Patient Tolerated Procedure: well Complications: none Orthopedic Joint Reduction Joint #1: Side: right Joint Reduction Location: finger Analgesia: nerve block Technique used: traction/counter-traction Post-reduction neuro exam: intact Post-reduction vascular: intact Post Reduction X-Ray Results: not reduced Splint Applied: Yes (velcro splint ) Patient Tolerated Procedure: well Discharge Plan Discharge Clinical Impression: Sprain of ulnar collateral ligament of metacarpophalangeal (MCP) joint of right thumb Patient Disposition: Home, Self-Care Instructions: Skier's Thumb (ED) Additional Instructions: We were concerned that your right thumb was dislocated over we attempted a reduction without success. Some of these changes on x-ray may be from a previous injury or the ligament that keeps the joint stable is injured Follow-up with orthopedics Ice to the area Tylenol for pain Prescriptions: No Action sertraline [Zoloft] 50 mg tablet 50 mg PO DAILY Bariatric Multivitamins 45 mg iron- 800 mcg-120 mcg capsule PO DAILY nifedipine 30 mg tablet extended release 30 mg PO DAILY Referrals: [facility] [Provider Group] - 1 week Stand Alone Forms: Work/School Release Interventions: ED Discharge Assessment Last Done: 04/05/23 08:35 Discharge Date/Time: 04/05/23 08:37
[2023-04-05] MEDS: Ondansetron ODT 4 MG TAB.RAPDIS TRANSLINGU (07:36)
[2023-04-05 08:00] VITALS: BP 151/83; PULSE 91; RESP 14; TEMP 36.6; O2SAT 98
--- NOTE | 2023-04-05 08:00 | PC.NURSE ---
pt is a&ox3, CMS and pulses intact, skin warm to the touch, vss, pt rates pain in her right thumb at a 9/10 (sharp/shooting pain), pt prefers no pain medication aside from tylenol d/t pt her son, lidocaine administered to the right hand by the provider,, pt awaiting reset/splint of her right hand, will continue to monitor.
== END 2023-04-05 08:37 | disposition home or self-care (01) ==
PROVIDERS: Emergency Provider Emergency Medicine; PCP Nurse Practitioner Family
DX: S63.641A Sprain of metacarpophalangeal joint of right thumb, initial encounter (principal); W10.8XXA Fall (on) (from) other stairs and steps, initial encounter; Y93.89 Activity, other specified; Y92.9 Unspecified place or not applicable; Y99.9 Unspecified external cause status
CPT/HCPCS: 26705; 73110; 73130; 99284

== ENCOUNTER 2023-04-12 08:10 | Outpatient (REF) | payer OTHER, SELFPAY ==
--- NOTE | ~2023-04-12 | XR_ITS ---
EXAMINATION: XR HAND, RIGHT CLINICAL INFORMATION: Right hand pain. Attention 1st carpometacarpal joint. COMPARISON: 04/05/2023 TECHNIQUE: PA, lateral, and oblique views of the right hand. FINDINGS: There is no evidence of acute fracture or dislocation of the right hand. There is some soft tissue swelling seen about the 1st metacarpophalangeal joint without definite bony injury/avulsion fracture. Joint spaces are maintained. Small bony density seen which appears to be the base of the 5th middle phalanx likely representing sequela of previous injury. XR/XR hand RT min 3V IMPRESSION: No acute bony abnormality of the right hand identified. Mild soft tissue swelling about the 1st metacarpophalangeal joint.
== END 2023-04-12 08:11 | disposition home or self-care (01) ==
LOC: HO.HOSX 08:10
PROVIDERS: PCP Nurse Practitioner Family; Visit Provider Orthopaedic Surgery
DX: M79.641 Pain in right hand (principal)
CPT/HCPCS: 73130; 99202

== ENCOUNTER 2023-04-27 05:58 | Day surgery (SDC) | payer OTHER, SELFPAY ==
[2023-04-27] VITALS (10 sets, daily range): BP systolic 133–156; BP diastolic 74–94; PULSE 62–77; RESP 17–20; TEMP 36.4–36.9; O2SAT 97–100; BMI 33.1
--- NOTE | ~2023-04-27 | FL_ITS ---
EXAMINATION: XR FLUOROSCOPY WITH IMAGES CLINICAL INFORMATION: Right thumb MCP ligament reconstruction COMPARISON: None available. TECHNIQUE: Fluoroscopy Supervised By: Dr. Bishop. Fluoroscopy Time: 14.84 seconds. Cumulative Dose: 0.4534 mGy. DAP: 0.37223 Gycm2. Images: 2. FINDINGS: Images demonstrate surgical instrument over the right MCP joint and first metacarpal bone of the thumb FL/FL guidance in OR IMPRESSION: Fluoroscopy guidance for right thumb MCP ligament reconstruction.
[2023-04-27 06:35] LABS: UPreg QC Valid YES; Urine Pregnancy NEGATIVE (NEGATIVE)
[2023-04-27] MEDS: Lactated Ringers 1,000 ML 100 ML IVCONT (06:43)
--- NOTE | 2023-04-27 07:18 | P.CONAN_ITS ---
[facility] Active Problems Active Problems: All Active Problems (Updated 04/24/23 @ 14:24 by Angelica Lam RN) Gestational diabetes (Acute) Obesity (Acute) Elevated BP without diagnosis of hypertension (Acute) Rupture of radial collateral ligament of right thumb (Acute) S/P gastric sleeve procedure (Acute) Past Medical History Medical History Gestational diabetes Heart murmur Hypertension PCOS (polycystic ovarian syndrome) Pre-eclampsia Family History Family History Mother Stroke Hypertension Father No problems noted. Brother No problems noted. Brother No problems noted. Sister No problems noted. Sister No problems noted. Son Asthma ADHD Heart murmur Son No problems noted. 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 Meds Allergies Allergy/AdvReac Type Severity Reaction Status Date / Time labetalol Allergy Hives Verified 04/12/23 08:24 sunflower seed Allergy Hives Verified 04/12/23 08:24 Active Medications: Current Medications Lactated Ringer's (Lr) 1,000 mls @ 100 mls/hr IVCONT .Q10H PRIMO Last Admin: 04/27/23 06:43 Dose: 100 mls/hr Home Medications Medication Instructions Recorded Confirmed Last Taken Type evedswld-wyembmmm-hcdh 45 mg-folic 1 cap PO DAILY 01/14/22 04/24/23 Unknown History acid 800 mcg-vit K 120 mcg capsule (Bariatric Multivitamins) sertraline 50 mg tablet (Zoloft) 50 mg PO DAILY 01/14/22 04/24/23 04/27/23 History nifedipine 30 mg tablet,extended 30 mg PO DAILY 08/10/22 04/24/23 04/27/23 History release albuterol 90 mcg/actuation aerosol 2 mcg inhalation QID PRN Wheezing 04/27/23 04/27/23 04/16/23 History inhaler hydralazine 25 1 cap PO QID anxiety 04/27/23 04/27/23 04/27/23 History mg-hydrochlorothiazide 25 mg capsule Exam Exam Date and Time: April 27, 202318 Height,Weight and Vital Signs: Height 5 ft 6 in Weight 92.986 kg Last Vital Signs Temp 98.3 F 04/27/23 06:23 Pulse 77 04/27/23 06:23 Resp 20 04/27/23 06:23 BP 156/94 H 04/27/23 06:23 Pulse Ox 98 04/27/23 06:23 O2 Del Method Room Air 04/27/23 06:23 Pertinent Lab Results Pertinent Lab Results: Laboratory Tests 04/27/23 06:10 Urine Test NEGATIVE Airway Mallampati Class: II TM Dist: >3cm Neck ROM: Full Loose/Missing/Broken Teeth: No Heart: RRR Lungs: CTA Assessment and Plan Assessment Anesthesia Assessment: Anesthesia Plan Discussed and Chart Reviewed Final Anesthetic Review History of Problems with Anesthesia: No NPO: Yes ASA Class: II Final Preanesthetic Review: Meds/Allgs Chart Reviewed, Consent Obtained/Reviewed and Anes Risks/Benef Reviewed Patient Risk: Low Procedure Risk: Low Anesthetic Plan Anesthetic Plan: GA and Regional Block Disposition: Standard PACU
--- NOTE | 2023-04-27 07:40 | PC.NURSE ---
nerve block by dr mejia pt tolerated well vss
--- NOTE | 2023-04-27 07:56 | MHC.SHP ---
Pre-Procedural Eval Section A Date of Service: 04/27/23 The patient is an INPATIENT: No Changes since office visit: No Cold of Flu in the past 2 weeks, No New Medical Problems, No Changes in Medication and No Patient answered all questions The History & Physical has been completed within 30 days and I have reviewed it.: Yes Section B Chief Complaint: Sprain of metacarpophalangeal joint of right thumb Allergies: Allergies Allergy/AdvReac Type Severity Reaction Status Date / Time labetalol Allergy Hives Verified 04/12/23 08:24 sunflower seed Allergy Hives Verified 04/12/23 08:24 Plan I have reviewed the history and physical and performed a pertinent physical examination on my patient. No changes have occurred unless specified. Time Spent With Patient Time: Total time managing care of this patient today ____ minutes.
--- NOTE | 2023-04-27 07:57 | W.PM.OPN ---
Operative Note Operative Note Date of Service: 04/27/23 Narrative: Operative Note Narrative: Preop diagnosis: 1. 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 Right thumb MCP joint radial collateral ligament Repair Surgeon: Ashleigh Bishop MD Anesthesia: General Anesthesia plus regional block Findings: right thumb MCP joint radial collateral ligament instability. Adequate capsuloligamentous and periosteal tissues to imbricate and repair Implants: 0.054 K-wire x1 Tourniquet time: 67 minutes EBL: 5.0 ml Specimen: none Drains: None Complications: None Disposition: Brought to the recovery room in stable condition Plan: Follow-up in 10-14 days for wound check, suture removal and pre clinic radiographs. She will be placed in a short-arm thumb spica cast at that time. Anticipate removal of the K-wire and cast at 6 weeks postop. She would then benefit from a custom thermoplastic splint with OT to wear with daytime activities for an additional 2 weeks. Indications: The patient is a [age] year old woman with a right thumb MCP joint radial collateral ligament injury with instability . The risks and benefits of operative treatment, including but not limited to risk of damage to blood vessels, nerves, tendons, infection, recurrence, persistent pain or numbness, incomplete resolution of preoperative symptoms, or need for further surgery were discussed with the patient and they wished to proceed with surgery. Procedure: Once consent was obtained patient was brought back to the operating suite and placed in the operating table in a supine position. A regional block was performed by the anesthesia team. Perioperative antibiotics and anesthesia was administered by the anesthesia team. A tourniquet was applied to the proximal aspect of the right upper extremity and the limb was prepped and draped in a standard surgical fashion. The limb was elevated exsanguinated with Esmarch bandage and the tourniquet inflated to 250 mm of mercury for a total tourniquet time of 67 minutes. a lazy-S incision was made over the lateral or radial aspect of the right thumb MCP joint. The incision was made through the skin to the subcutaneous tissues using a 15. Blade. I then dissected down to the level of the thumb abductor mechanism. The abductor tendon was identified and incised to facilitate repair. This then exposed the capsuloligamentous tissues on the radial aspect of the right thumb MCP joint. I then made an oblique incision from the proximal dorsal aspect of the MCP joint extending distally and volarly across the MCP joint through the capsule ligamentous layer. The MCP joint was appreciated. She certainly had adequate capsuloligamentous tissues to facilitate imbrication and repair. Using some 3-0 Ethibond I then imbricated and repaired the capsuloligamentous layer on the radial aspect of the MCP joint. This appeared to adequately return stability to the MCP joint, and was held in position using a single 0.054 K-wire which was then passed through the radial aspect of the metacarpal head obliquely across the joint to the ulnar aspect of the base of the proximal phalanx. Once satisfied with our repair and position of the K-wire the K-wire was bent and cut short. The abductor tendon was repaired using some 4-0 FiberWire. The wound had been copiously irrigated with normal saline. At this point the tourniquet was deflated and hemostasis obtained with a brief period of local pressure and bipolar electrocautery. The wound was copiously irrigated with normal saline. The skin edges were reapproximated with 5-0 nylon suture. The wound was infiltrated with some 1% lidocaine with epinephrine for postop pain control and a sterile dressing was applied. she was placed in a short-arm thumb spica splint. The patient appears to have tolerated the procedure well and with no complications. All digits were well vascularized conclusion of the case.
== END 2023-04-27 13:15 | disposition home or self-care (01) ==
PROVIDERS: Anesthesiology; PCP Nurse Practitioner Family; Visit Provider Orthopaedic Surgery
PROC: (CPT 26540; principal; 2023-04-27 07:30)
DX: S63.641A Sprain of metacarpophalangeal joint of right thumb, initial encounter (principal); M79.644 Pain in right finger(s); G89.29 Other chronic pain; W10.9XXA Fall (on) (from) unspecified stairs and steps, initial encounter; Y93.9 Activity, unspecified; Y92.9 Unspecified place or not applicable; Y99.8 Other external cause status; I10 Essential (primary) hypertension; R01.1 Cardiac murmur, unspecified; Z79.899 Other long term (current) drug therapy; Z98.84 Bariatric surgery status; Z88.8 Allergy status to other drugs, medicaments and biological substances
CPT/HCPCS: 26540; 81025; J0690; J2250; J3010

== ENCOUNTER → 2023-04-27 05:58 | Outpatient (BNV) | payer OTHER, SELFPAY | PROVIDERS: PCP Nurse Practitioner Family; Visit Provider Orthopaedic Surgery | DX: S63.641A Sprain of metacarpophalangeal joint of right thumb, initial encounter (principal) | CPT/HCPCS: 26540 ==

== ENCOUNTER 2023-05-02 17:31 | Emergency (ER) | payer OTHER, SELFPAY | END 2023-05-02 18:35 | disposition left against medical advice (07) | PROVIDERS: Emergency Provider Emergency Medicine | DX: M79.641 Pain in right hand (principal) ==

== ENCOUNTER 2023-05-05 19:57 | Emergency (ER) | payer OTHER, SELFPAY ==
--- NOTE | 2023-05-05 21:48 | PC.NURSE ---
Called without answer at 21:12, 21:19, and 21:30. left without being seen, unknown reason. did not alert staff of [facility].
== END 2023-05-05 22:08 | disposition left against medical advice (07) ==
LOC: HO.ED 22:08
PROVIDERS: Emergency Provider Emergency Medicine; PCP Nurse Practitioner Family
DX: Z48.00 Encounter for change or removal of nonsurgical wound dressing (principal)

== ENCOUNTER 2023-05-06 01:52 | Emergency (ER) | payer OTHER, SELFPAY ==
--- NOTE | ~2023-05-06 | XR_ITS ---
EXAMINATION: XR HAND, RIGHT CLINICAL INFORMATION: Injury after surgery COMPARISON: 04/12/2023 TECHNIQUE: PA, lateral, and oblique views of the right hand. FINDINGS: Wire is present traversing the metacarpophalangeal joint of the thumb. Overlying splint material obscures fine bony detail. Osseous alignment throughout the hand appears anatomic. No acute fracture is seen. XR/XR hand RT min 3V IMPRESSION: Postoperative changes of the thumb. No acute findings identified.
[2023-05-06 01:55] VITALS: BP 146/100; PULSE 87; RESP 16; TEMP 36.6; O2SAT 99; BMI 37.1
[2023-05-06 04:19] VITALS: BP 163/88; PULSE 72; RESP 18; TEMP 36.9; O2SAT 100
[2023-05-06 06:18] VITALS: BP 125/78; PULSE 67; RESP 18; O2SAT 98
--- NOTE | 2023-05-06 06:49 | ED_ITS ---
HPI - Extremity Problem General Chief complaint: Extremity Injury, Upper Stated complaint: 04/27 R hand surgery, feels pins shifting Time Seen by Provider: 05/06/23 06:42 Source: patient Mode of arrival: ambulatory Limitations: no limitations History of Present Illness HPI Narrative: 33-year-old female presents complaints of discomfort to right thumb, patient is postop, patient a right thumb MCP joint radial collateral ligament repair done on 04/27/2023. She reports that her splint was hit by her child at home and he dropped some juice on it, he reports he reached out to Orthopedics who wanted patient to come into the emergency department for a new splint as she cannot get into the office until Monday. Patient denies numbness and tingling at this time she tells me she sometimes gets intermittent tingling. Denies fevers and chills. She tells me she thinks the surgeries going well so far. Related Data Home Medications Medication Instructions Recorded Confirmed [id number] 45 mg-folic 1 cap PO DAILY 01/14/22 04/24/23 acid 800 mcg-vit K 120 mcg capsule (Bariatric Multivitamins) sertraline 50 mg tablet (Zoloft) 50 mg PO DAILY 01/14/22 04/24/23 nifedipine 30 mg tablet,extended 30 mg PO DAILY 08/10/22 04/24/23 release albuterol 90 mcg/actuation aerosol 2 mcg inhalation QID PRN Wheezing 04/27/23 0 04/27/23 inhaler hydralazine 25 1 cap PO QID anxiety 04/27/23 04/27/23 mg-hydrochlorothiazide 25 mg capsule Previous Rx's Medication Instructions Recorded oxycodone-acetaminophen 5 mg-325 1 tab PO Q6H PRN pain #20 tabs 04/27/23 mg tablet sennosides 8.6 mg capsule (senna) 8.6 mg PO BEDTIME #30 caps 05/01/23 Allergies Allergy/AdvReac Type Severity Reaction Status Date / Time labetalol Allergy Hives Verified 04/12/23 08:24 sunflower seed Allergy Hives Verified 04/12/23 08:24 Review of Systems Review of Systems: Constitutional : No Weight loss, No Fever, No Chills, No Fatigue, No Malaise ENT/Mouth : No sore throat, No Rhinorrhea Eyes: No Eye Pain, No Swelling, No Redness Cardiovascular : No Chest Pain, No SOB, No Dyspnea on Exertion, No Orthopnea, No Edema, No Palpitations Respiratory : No Cough, No Sputum, No Wheezing Gastrointestinal : No Nausea, No Vomiting, No Diarrhea, No Constipation, No abdominal Pain, No Hematochezia, No Melena Genitourinary : No Dysuria, No Urinary Frequency, No Hematuria, Musculoskeletal : + joint pain, No Myalgias, No Joint Swelling Skin : No Skin Lesions, No rash Neuro : No Weakness, No Numbness, No Dizziness, No Headache Psych : No Anxiety/Panic, No Depression All other systems reviewed and are negative Yes all other systems are reviewed and are negative [facility] Past Medical History Attestation statement: The following information was validated with the patient. Source: old records reviewed and nursing notes reviewed Medical History Gestational diabetes Heart murmur Hypertension PCOS (polycystic ovarian syndrome) Pre-eclampsia Surgical History Hx of section S/P gastric sleeve procedure Family History Family History Mother Stroke Hypertension Father No problems noted. Brother No problems noted. Brother No problems noted. Sister No problems noted. Sister No problems noted. Son Asthma ADHD Heart murmur Son No problems noted. 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 Oriented X3.? No acute distress.? Head: Normocephalic, atraumatic, no step-offs or deformities Eyes: Pupils equal, round and reactive to light.? ENT: Pharynx normal.? Neck: Normal inspection.? Neck supple.? CVS: Normal heart rate and rhythm.? Pulses normal.? Respiratory: No respiratory distress.? Breath sounds normal.? Abdomen: Soft and nontender.? Skin: Skin warm and dry.? Normal skin color.? Normal skin turgor.? Extremities: 5/5 strength to bilateral upper and lower extremities. Post op right hand normal healing noted no signs of infefction. 2+ radial pulses equal and b/l. Normal capillary refil to b/l UE digits. No wrist drop b/l. Normal sensation distally. ( images below) Neuro: Oriented X 3.? No motor deficit.? No sensory deficit. CN 2-12 intact Course Reevaluation(s) Reevaluation #1: X-ray of right hand with postoperative changes no acute findings. Patient adamant that she wants in a splint, at this time new splint will be placed advised follow-up with the orthopedic team. Educated patient on diagnosis and treatment plan, answered all question, patient verbalizes understanding. At this time patient will be discharged home, advised to return with new or worsening symptoms. Educated on worrisome signs and symptoms and when to return. At this time I feel comfortable discharge home. Time: 07:12 Reevaluation #2: Placed patient in a short thumb spica. Time: 07:26 Medical Decision Making Medical Decision Making [facility] Narrative: [id number] 33 year old female presents w/ right thumb pain since surgery requesting new splint as it has juice on it and it got hit by her child at home On exam 5/5 strength to bilateral upper and lower extremities. Post op right hand normal healing noted no signs of infefction. 2+ radial pulses equal and b/l. Normal capillary refil to b/l UE digits. No wrist drop b/l. Normal sensation distally. ( images below) Encouraged her to wait for a new splint untill she sees ortho on Monday, she is adamant she wants a new one and they told her to come in for a new one explained risks to patient On exam splint appears normal, no signs of neurovascular compromise, threatened limb, compartment syndrome. No signs of necrosis or infection. Plan- imaging, splint. Differential Diagnosis Differential Diagnoses: The differential diagnosis associated with the presentation includes On exam splint appears normal, no signs of neurovascular compromise, threatened limb, compartment syndrome. No signs of necrosis or infection. Admission/Observation Consideration of admission/observation: Escalation of care including admission/observation considered No indication Independent Interpretation I performed an independent interpretation of an: Plain X-Ray (XR/XR hand RT min 3V IMPRESSION: Postoperative changes of the thumb. No acute findings identified. ) Radiology Impression Discussion of test interpretation with radiology: I have reviewed the radiologist's reading. Core Measures AMI core measures followed: Yes Measure exclusions: not indicated Critical Care Time Critical Care Time Critical Care Time: No Discharge Plan Discharge Clinical Impression: Pain of right thumb Patient Disposition: Home, Self-Care Instructions: Arthralgia (ED) Additional Instructions: Take your medications as prescribed. If you were prescribed antibiotics today, it is important that you take your medication to their entirety, do not skip any doses, do not finish them early. Follow-up with your primary care provider this week. Return to the emergency department with new or worsening symptoms. Such as fevers, chills, chest pain, shortness of breath, nausea, vomiting, dizziness, headache, vision changes, lethargy In case of emergency call 911 Please call orthopedics for any complications or return to the emergency department complications include numbness, tingling, discoloration. Prescriptions: No Action senna 8.6 mg capsule 8.6 mg PO BEDTIME Qty: 30 0RF albuterol 90 mcg/actuation Aerosol 2 mcg INHALATION QID PRN (Reason: Wheezing) Hydrazide 25-25 mg Capsule 1 cap PO QID oxycodone-acetaminophen 5-325 mg tablet 1 tab PO Q6H PRN (Reason: pain) Qty: 20 0RF Rx Instructions: Partial Fill upon patient request. sertraline [Zoloft] 50 mg tablet 50 mg PO DAILY Bariatric Multivitamins 45 mg iron- 800 mcg-120 mcg capsule 1 cap PO DAILY nifedipine 30 mg tablet extended release 30 mg PO DAILY Referrals: Physician,Unknown J [Primary Care Provider] - 2 days Stand Alone Forms: Work/School Release
[2023-05-06] MEDS: Acetaminophen 325 MG TABLET 975 MG PO (07:21)
== END 2023-05-06 07:35 | disposition home or self-care (01) ==
PROVIDERS: Emergency Provider Emergency Medicine
DX: M79.641 Pain in right hand (principal); I10 Essential (primary) hypertension; T14.8XXD Other injury of unspecified body region, subsequent encounter; Z98.890 Other specified postprocedural states; X58.XXXD Exposure to other specified factors, subsequent encounter
CPT/HCPCS: 73130; 99283; 99284

== ENCOUNTER 2023-05-10 10:49 | Outpatient (REF) | payer OTHER, SELFPAY | END 2023-05-10 10:50 | disposition home or self-care (01) | LOC: HO.HOSX 10:49 | PROVIDERS: PCP Nurse Practitioner Family; Visit Provider Orthopaedic Surgery | DX: Z13.89 Encounter for screening for other disorder (principal) ==

== ENCOUNTER 2023-05-10 10:49 | Outpatient (AMB) | payer OTHER, SELFPAY ==
--- NOTE | 2023-05-10 11:13 | A.OFFVIS_ITS ---
Intake Vital Signs 05/10/23 11:14 Height 5 ft 6 in Weight 230 lb BMI 37.1 Intake Visit Reasons: PO R Th MCP RCL Rep v Recon. 04/27/23 AR Intake Note: , 33 yr old female presents today for her p/o visit for her P/O right thumb MCP RCL recon. DOS 04/27/23. Patient states she was seen in ED on 05/06/23 due to splint becoming loose. Xrays updated in office and dressing removed. Allergies labetalol Allergy (Verified 05/10/23 11:23) Hives sunflower seed Allergy (Verified 05/10/23 11:23) Hives HPI PO R Th MCP RCL Rep v Recon. 04/27/23 AR HPI Details Ms is a 33 year old right hand dominant woman who presents S/P right thumb MCP joint RCL repair, DOS: 04/27/23. She was seen in the ED on 05/06/23 after her young toddler fell onto her hand. She was evaluated and put into a thumb spica splint. She denies her dressing getting wet She says she is doing well She denies any symptoms of infection. [facility] Medical History Gestational diabetes Heart murmur Hypertension PCOS (polycystic ovarian syndrome) Pre-eclampsia Surgical History Hx of section S/P gastric sleeve procedure Family History Mother Stroke Hypertension Father No problems noted. Brother No problems noted. Brother No problems noted. Sister No problems noted. Sister No problems noted. Son Asthma ADHD Heart murmur Son No problems noted. 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 Sutures removed and Steri-Strips applied Sensation is intact Cap refill is brisk Radiographs: 3 views of the right hand from 05/06/23 were reviewed by me today in clinic. They show satisfactory reduction of the MCP joint and position of the K-wire Psych Appearance: grossly normal Affect: normal affect Attitude: cooperative Assessment & Plan Assessment & Plan (1) Rupture of radial collateral ligament of right thumb: Code(s): S63.641A - Sprain of metacarpophalangeal joint of right thumb, initial encounter Plan Assessment & Plan: 1. 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 I discussed activity modifications, she is to lift nothing heavier than a cellphone for the next two weeks She was fitted for a short arm thumb spica splint today She will perform gentle ROM exercises at home She should avoid any underwater activities at this time She should gently massage about the incision site to reduce the risk of hypersensitivity I ordered OT hand therapy to begin in 4 weeks, following removal of her K-wire. She will have a custom thermoplastic MCP thumb splint that she will wear for at least 4 weeks She will follow up in 4 weeks for K-wire removal Scribed for Ashleigh Bishop MD by Bart Russell medical aides teacher, on 05/10/23 at 11:40 AM, EST. Orders: Orders OT Evaluation and Treatment Today S63.641A - Sprain of metacarpophalangeal joint of right thumb, initial encounter Coding Level of Care Code Global (50684) Diagnoses Rupture of radial collateral ligament of right thumb S63.641F
[2023-05-10 11:14] VITALS: BMI 37.1
== END 2023-05-10 12:19 | disposition home or self-care (01) ==
PROVIDERS: PCP Nurse Practitioner Family; Visit Provider Orthopaedic Surgery
DX: S63.641A Sprain of metacarpophalangeal joint of right thumb, initial encounter (principal)
CPT/HCPCS: 99024

== ENCOUNTER 2023-05-21 13:55 | Observation (INO) | payer OTHER, SELFPAY ==
[2023-05-21] VITALS (7 sets, daily range): BP systolic 144–156; BP diastolic 72–95; PULSE 69–83; RESP 18; TEMP 36.4; O2SAT 96–100; BMI 32.8
--- NOTE | ~2023-05-21 | XR_ITS ---
EXAMINATION: XR chest 2V CLINICAL INFORMATION: Reason for Exam syncope COMPARISON: No prior chest x-ray available in our system for comparison at the time of this dictation. TECHNIQUE: XR chest 2V Lungs and Buffy: Both lungs are clear. Pleura: Normal. Costophrenic angles are sharp. No pneumothorax. Heart: The heart is normal in size. Mediastinum: The mediastinum is within normal limits.. Bones: Skeletal structures included are normal for patient's age. XR/XR chest 2V IMPRESSION: Normal chest x-ray.
--- NOTE | ~2023-05-21 | CT_ITS ---
EXAMINATION: CT HEAD WITHOUT CONTRAST CLINICAL INFORMATION: Head strike and pain status post syncope. COMPARISON: None available. TECHNIQUE: Contiguous axial imaging was performed from the skull base to vertex without intravenous administration of contrast. Coronal and sagittal reformatted images were obtained. This CT examination was performed using dose optimization techniques as appropriate, variously including the following: *Automated exposure control *Adjustment of mA and/or kV according to patient size (this includes techniques or standardized protocols for targeted exams where dose is matched to indication/reason for exam; i.e. extremities or head) *Use of iterative reconstruction technique DLP: 719 mGy-cm FINDINGS: The cortical sulci are normal. The lateral ventricles are symmetrical. Incidental patent cava septum pellucidum. The third and fourth ventricles are in their normal midline position. The basilar and prepontine cisterns are unremarkable. Incidental partial empty sella with mild expansion of the sella turcica. No suprasellar abnormality. There is no acute intra or extracerebral abnormality. There is no mass effect or midline shift. Sections through the bony calvarium are unremarkable. The paranasal sinuses are clear. The bony orbits and orbital contents are unremarkable. Mild debris is seen medially in the external auditory canals bilaterally. CT/CT head/brain wo IV con IMPRESSION: 1. No acute intracranial pathology. 2. Mild debris in the external auditory canals bilaterally could represent cerumen. Correlate with physical exam.
--- NOTE | ~2023-05-21 | CT_ITS ---
EXAMINATION: CT CERVICAL SPINE WITHOUT CONTRAST CLINICAL INFORMATION: Pain following head strike COMPARISON: None available. TECHNIQUE: CT of the cervical spine were performed without intravenous contrast. Multiplanar reformats were rendered and reviewed. This CT examination was performed using dose optimization techniques as appropriate, variously including the following: *Automated exposure control *Adjustment of mA and/or kV according to patient size (this includes techniques or standardized protocols for targeted exams where dose is matched to indication/reason for exam; i.e. extremities or head) *Use of iterative reconstruction technique DLP: 557.23 mGy-cm FINDINGS: The cervical alignment is normal. The craniocervical junction is normal. The vertebral body heights are maintained. No cervical spine fracture is seen. The paraspinal soft tissues are within normal limits. The partially imaged lung apices are clear. CT/CT cervical spine wo IV con IMPRESSION: Unremarkable examination. Fleischner guidelines were followed.
--- NOTE | 2023-05-21 14:02 | ED.GENADULT ---
HPI - General Adult General Chief complaint: Syncope Stated complaint: syncope Time Seen by Provider: 05/21/23 14:34 Related Data Home Medications Medication Instructions Recorded Confirmed sertraline 50 mg tablet (Zoloft) 50 mg PO DAILY 01/14/22 05/21/23 nifedipine 30 mg tablet,extended 30 mg PO DAILY 08/10/22 05/21/23 release albuterol sulfate 90 mcg/actuation 2 puff inhalation Q4-6H PRN 05/21/23 05/21/23 aerosol inhaler Shortness Of Breath Or Wheezing hydroxyzine HCl 25 mg tablet 25 mg PO TID PRN Anxiety 05/21/23 05/21/23 multivitamin 1 tab PO DAILY 05/21/23 05/21/23 Allergies Allergy/AdvReac Type Severity Reaction Status Date / Time labetalol Allergy Hives Verified 05/10/23 11:23 sunflower seed Allergy Hives Verified 05/10/23 11:23 [facility] Past Medical History Medical History Gestational diabetes Heart murmur Hypertension PCOS (polycystic ovarian syndrome) Pre-eclampsia Surgical History Hx of section S/P gastric sleeve procedure Family History Family History Mother Stroke Hypertension Father No problems noted. Brother No problems noted. Brother No problems noted. Sister No problems noted. Sister No problems noted. Son Asthma ADHD Heart murmur Son No problems noted. 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 Patient is a 33 year old assigned female at presenting to the emergency department after a syncopal episode. Patient states that she passed out at a restaurant and hit her head. Patient states that she was feeling lightheaded and then passed out. Labs and imaging ordered. Patient placed back in the waiting room pending room availability and results. Dr. Hernández evaluated this patient. Dr. Hernández created and completed his own separate note. Please refer to his note on 05/21/2023 for this patient's course and disposition. Medications Administered Generic Name Dose Route Start Last Admin Trade Name Freq PRN Reason Stop Dose Admin Enoxaparin Sodium 40 mg 05/21/23 18:00 05/21/23 18:09 Enoxaparin Sodium 40 Mg/0.4 Ml Syringe SUBCUT Not Given Q24H PRIMO Discontinued Medications Generic Name Dose Route Start Last Admin Trade Name Freq PRN Reason Stop Dose Admin Sodium Chloride 1,000 mls @ 999 mls/hr 05/21/23 15:15 05/21/23 17:00 Ns IVCONT 05/21/23 16:15 Infused .Q1H1M PRIMO Infusion Metoprolol Succinate 50 mg 05/21/23 16:41 05/21/23 17:38 Metoprolol Succinate Er 50 Mg Tab.Er.24h PO 05/21/23 16:42 Not Given ONCE ONE Protocol Medical Decision Making Lab Data 05/21/23 14:28 05/21/23 14:28 Labs: Lab Results 05/21/23 05/21/23 05/21/23 Range/Units 14:28 14:28 14:28 WBC 5.8 (4.8-10.8) X10*3/uL RBC 4.22 (4.20-5.50) X10*6/uL Hgb 11.9 L (12.0-16.0) g/dl Hct 36.7 L (37.0-47.0) % MCV 87.0 (80.0-98.0) fL MCH 28.2 (27.0-33.0) pg MCHC 32.4 (31.0-35.0) g/dl RDW 13.1 (11.0-16.0) % Plt Count 203 (160-400) X10*3/uL MPV 9.8 (9.4-12.3) fL Immature Gran % (Auto) 0.2 (0.0-0.4) % Neut % (Auto) 50.3 (45-73) % Lymph % (Auto) 37.3 (20-40) % [place] % (Auto) 9.3 (2-11) % Eos % (Auto) 2.6 (0-4) % Baso % (Auto) 0.3 (0-2) % Lymph # (Auto) 2.2 (1.2-4.9) X10*3/uL [place] # (Auto) 0.5 (0.1-1.2) X10*3/uL Eos # (Auto) 0.2 (0.0-0.4) X10*3/uL Baso # (Auto) 0.0 (0.0-0.2) X10*3/uL Abs Immat Gran (auto) 0.01 (0.00-0.03) X10*3/uL Absolute Neuts (auto) 2.9 (2.0-8.3) x10*3/uL Absolute Nucleated RBC 0.000 (0.0-0.012) X10*3/uL Nucleated RBC % (auto) 0.0 (0.0-0.2) /100WBC PT 11.4 (11.1-13.3) SEC INR 0.9 (0.9-1.1) APTT 34.8 (26.0-36.4) SEC Sodium 138 (135-145) mmol/L Potassium 3.9 (3.3-5.1) mmol/L Chloride 112 H (96-108) mmol/L Carbon Dioxide 19 L (22-29) mmol/L Anion Gap 11 L (12-20) BUN 13 (9-16) mg/dL Creatinine 0.78 (0.5-1.4) mg/dL Estim Creat Clear Calc 116.1 Estimated GFR > 60 Random Glucose 99 (60-115) mg/dL Calcium 9.2 (8.4-10.2) mg/dL Magnesium 2.0 (1.6-2.6) mg/dL Total Bilirubin 0.3 (0.0-1.0) mg/dL AST 32 H (5-31) U/L ALT 12 (0-31) U/L Alkaline Phosphatase 62 (39-117) U/L Troponin I High Sens (<3.5-17.0) ng/L Total Protein 6.8 (6.5-8.0) g/dL Albumin 3.6 (3.5-5.0) g/dL Beta HCG, Quant < 2 mIU/mL Urine Color Urine Appearance Urine pH (5.0-9.0) Ur Specific [place] (1.005-1.025) Urine Protein (Neg-Trace) mg/dL Urine Glucose (UA) (Negative) mg/dL Urine Ketones (Negative) mg/dL Urine Blood (Negative) Urine Nitrite (Negative) Ur Leukocyte Esterase (Negative) COVID-19 (LILIA) (Negative) COVID-19 Clin Com 05/21/23 05/21/23 05/21/23 Range/Units 14:28 14:28 16:10 WBC (4.8-10.8) X10*3/uL RBC (4.20-5.50) X10*6/uL Hgb (12.0-16.0) g/dl Hct (37.0-47.0) % MCV (80.0-98.0) fL MCH (27.0-33.0) pg MCHC (31.0-35.0) g/dl RDW (11.0-16.0) % Plt Count (160-400) X10*3/uL MPV (9.4-12.3) fL Immature Gran % (Auto) (0.0-0.4) % Neut % (Auto) (45-73) % Lymph % (Auto) (20-40) % [place] % (Auto) (2-11) % Eos % (Auto) (0-4) % Baso % (Auto) (0-2) % Lymph # (Auto) (1.2-4.9) X10*3/uL [place] # (Auto) (0.1-1.2) X10*3/uL Eos # (Auto) (0.0-0.4) X10*3/uL Baso # (Auto) (0.0-0.2) X10*3/uL Abs Immat Gran (auto) (0.00-0.03) X10*3/uL Absolute Neuts (auto) (2.0-8.3) x10*3/uL Absolute Nucleated RBC (0.0-0.012) X10*3/uL Nucleated RBC % (auto) (0.0-0.2) /100WBC PT (11.1-13.3) SEC INR (0.9-1.1) APTT (26.0-36.4) SEC Sodium (135-145) mmol/L Potassium (3.3-5.1) mmol/L Chloride (96-108) mmol/L Carbon Dioxide (22-29) mmol/L Anion Gap (12-20) BUN (9-16) mg/dL Creatinine (0.5-1.4) mg/dL Estim Creat Clear Calc Estimated GFR Random Glucose (60-115) mg/dL Calcium (8.4-10.2) mg/dL Magnesium (1.6-2.6) mg/dL Total Bilirubin (0.0-1.0) mg/dL AST (5-31) U/L ALT (0-31) U/L Alkaline Phosphatase (39-117) U/L Troponin I High Sens < 2.7 (<3.5-17.0) ng/L Total Protein (6.5-8.0) g/dL Albumin (3.5-5.0) g/dL Beta HCG, Quant mIU/mL Urine Color Yellow Urine Appearance Clear Urine pH 5.5 (5.0-9.0) Ur Specific [place] 1.020 (1.005-1.025) Urine Protein Negative (Neg-Trace) mg/dL Urine Glucose (UA) Negative (Negative) mg/dL Urine Ketones Negative (Negative) mg/dL Urine Blood Negative (Negative) Urine Nitrite Negative (Negative) Ur Leukocyte Esterase Negative (Negative) COVID-19 (LILIA) Negative (Negative) COVID-19 Clin Com See Note Discharge Plan Discharge Clinical Impression: Syncope, Bigeminy Patient Disposition: Admitted As Inpatient
--- NOTE | 2023-05-21 14:03 | ECG_ITS ---
Test Reason : SYNCOPE Blood Pressure : / mmHG Vent. Rate : 085 BPM Atrial Rate : 085 BPM P-R Int : 162 ms QRS Dur : 080 ms QT Int : 386 ms P-R-T Axes : 065 014 046 degrees QTc Int : 459 ms Sinus rhythm with frequent Premature ventricular complexes in a pattern of bigeminy Possible Left atrial enlargement Borderline ECG When compared with ECG of 25-NOV-2022 10:14, ventricular bigeminy present Referred By: Jennifer Vargas Electronically Signed By:Arcadio Corona
[2023-05-21 14:33] LABS: MANUAL DIFF FLAG NO
[2023-05-21 14:36] LABS: Basophils Percent Auto 0.3 % (0-2); Eosinophils Absolute Auto 0.2 X10*3/uL (0.0-0.4); Eosinophils Percent Auto 2.6 % (0-4); Hematocrit 36.7 % (37.0-47.0); Hemoglobin 11.9 g/dl (12.0-16.0); Imm Gran Abs Auto 0.01 X10*3/uL (0.00-0.03); Imm Gran Pct Auto 0.2 % (0.0-0.4); Lymphocytes Absolute Auto 2.2 X10*3/uL (1.2-4.9); Lymphocytes Percent Auto 37.3 % (20-40); Mean Corpuscular HGB Conc 32.4 g/dl (31.0-35.0); Mean Corpuscular Hemoglobin 28.2 pg (27.0-33.0); Mean Platelet Volume 9.8 fL (9.4-12.3); Monocytes Absolute Auto 0.5 X10*3/uL (0.1-1.2); Monocytes Percent Auto 9.3 % (2-11); Neutrophils Absolute Auto 2.9 x10*3/uL (2.0-8.3); Neutrophils Percent Auto 50.3 % (45-73); Platelet Count 203 X10*3/uL (160-400); Red Blood Count 4.22 X10*6/uL (4.20-5.50); Red Cell Distribution Width 13.1 % (11.0-16.0); White Blood Count 5.8 X10*3/uL (4.8-10.8)
[2023-05-21 14:41] LABS: INTERNATIONAL NORM RATIO 0.9 (0.9-1.1); Prothrombin Time 11.4 SEC (11.1-13.3)
[2023-05-21 14:44] LABS: Partial Thromboplastin Time 34.8 SEC (26.0-36.4)
[2023-05-21 14:49] LABS: COVID-19 Test Negative (Negative); IDNOW Serial# 08D9AD1C
[2023-05-21 14:58] LABS: Alanine Aminotransferase 12 U/L (0-31); Albumin Level 3.6 g/dL (3.5-5.0); Alkaline Phosphatase 62 U/L (39-117); Anion Gap 11 (12-20); Aspartate Amino Transferase 32 U/L (5-31); Bilirubin Total 0.3 mg/dL (0.0-1.0); Blood Urea Nitrogen 13 mg/dL (9-16); Calcium 9.2 mg/dL (8.4-10.2); Carbon Dioxide 19 mmol/L (22-29); Chloride 112 mmol/L (96-108); Creatinine Clr Calc Pharmacy 116.1; Estimated Glomerular Filt Rate > 60; Glucose Random 99 mg/dL (60-115); Potassium 3.9 mmol/L (3.3-5.1); Sodium 138 mmol/L (135-145); Total Protein 6.8 g/dL (6.5-8.0)
[2023-05-21 14:59] LABS: HCG Quantitative < 2 mIU/mL
--- NOTE | 2023-05-21 15:02 | ED_ITS ---
HPI - Syncope General Chief Complaint: Syncope Stated Complaint: syncope Time Seen by Provider: 05/21/23 14:34 Source: patient Mode of arrival: ambulatory Limitations: no limitations History of Present Illness HPI narrative: this is a 33 years old female presented to the emergency room complaining of a syncopal episode, she states that she had a syncope last night while standing up and then today she had a near syncopal episode. She denies any chest pain or shortness of breath she has history of hypertension she take nifedipine every day, she has history of gastric sleeve MD complaint: loss of consciousness Onset (ago): day(s) (1) Prodromal symptoms: none Witnessed: No Context: other (standing up) Injuries sustained associated with event: none Related Data Home Medications Medication Instructions Recorded Confirmed [id number] 45 mg-folic 1 cap PO DAILY 01/14/22 04/24/23 acid 800 mcg-vit K 120 mcg capsule (Bariatric Multivitamins) sertraline 50 mg tablet (Zoloft) 50 mg PO DAILY 01/14/22 04/24/23 nifedipine 30 mg tablet,extended 30 mg PO DAILY 08/10/22 04/24/23 release albuterol 90 mcg/actuation aerosol 2 mcg inhalation QID PRN Wheezing 04/27/23 04/27/23 inhaler hydralazine 25 1 cap PO QID anxiety 04/27/23 04/27/23 mg-hydrochlorothiazide 25 mg capsule Previous Rx's Medication Instructions Recorded oxycodone-acetaminophen 5 mg-325 1 tab PO Q6H PRN pain #20 tabs 04/27/23 mg tablet sennosides 8.6 mg capsule (senna) 8.6 mg PO BEDTIME #30 caps 05/01/23 Allergies Allergy/AdvReac Type Severity Reaction Status Date / Time labetalol Allergy Hives Verified 05/10/23 11:23 sunflower seed Allergy Hives Verified 05/10/23 11:23 Review of Systems Eyes: Eyes: Reports no additional eye complaints ENT: Reports system reviewed and no additional complaints, except as documented Cardiovascular: Cardiovascular: Reports no additional cardiovascular complaints Musculoskeletal: Musculoskeletal: Reports no additional musculoskeletal comp laints PMFSH Past Medical History Medical History Gestational diabetes Heart murmur Hypertension PCOS (polycystic ovarian syndrome) Pre-eclampsia Surgical History Hx of section S/P gastric sleeve procedure Family History Family History Mother Stroke Hypertension Father No problems noted. Brother No problems noted. Brother No problems noted. Sister No problems noted. Sister No problems noted. Son Asthma ADHD Heart murmur Son No problems noted. 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 Physical Exam Vital Signs: Vital Signs: Last Vital Signs Temp 97.5 F 05/21/23 14:00 Pulse 72 05/21/23 15:50 Resp 18 05/21/23 15:50 BP 144/95 H 05/21/23 14:00 Pulse Ox 100 05/21/23 15:55 O2 Del Method Room Air 05/21/23 15:55 BMI result Body Mass Index 32.8 Const: General: cooperative Nutritional Appearance: well nourished Orientation/consciousness: patient oriented x3 HEENT: Head: Yes normal to inspection General nose exam: Normal external nose present Face and sinus: Yes normal facial exam Neck: Neck: Yes normal visual inspection and Yes full ROM Chest: Chest palpation & inspection: normal inspection of the chest Resp: Effort & Inspection: normal respiratory effort Auscultation: clear to auscultation bilaterally Cardio: Jugular venous distension: no JVD Rate: regular rate Rhythm: regular rhythm GI: Inspection: Yes normal to inspection Palpation (GI): Soft to palpation, not firm and nontender : General: Yes no CVA tenderness Back/Spine/Pelvis: Back: no CVA tenderness Neuro: General: patient oriented x3 Cranial nerves: Yes CN's II-XII intact bilaterally Medications Administered Discontinued Medications Generic Name Dose Route Start Last Admin Trade Name Freq PRN Reason Stop Dose Admin Sodium Chloride 1,000 mls @ 999 mls/hr 05/21/23 15:15 05/21/23 15:50 Ns IVCONT 05/21/23 16:15 999 mls/hr .Q1H1M PRIMO Administration Medical Decision Making Medical Decision Making MDM Narrative: patient presented to the ED complaining of syncopal episode will perform EKG/labs / troponin will monitor and reassess Troponin is negative patient had 2 syncopal episode she has bigeminy I think is very reasonable observation I discussed the case with Dr. Pratt Differential Diagnosis Differential Diagnoses: The differential diagnosis associated with the presentation includes vasovagal episode / arrhythmia Admission/Observation Consideration of admission/observation: Escalation of care including admission/observation considered Consult Healthcare Provider Management of the patient was discussed with: Busgirl DR Crawford Lab Data MDM Lab Attestation statement: I reviewed the patient's lab results. 05/21/23 14:28 05/21/23 14:28 Labs: Lab Results 05/21/23 05/21/23 05/21/23 Range/Units 14:28 14:28 14:28 WBC 5.8 (4.8-10.8) X10*3/uL RBC 4.22 (4.20-5.50) X10*6/uL Hgb 11.9 L (12.0-16.0) g/dl Hct 36.7 L (37.0-47.0) % MCV 87.0 (80.0-98.0) fL MCH 28.2 (27.0-33.0) pg MCHC 32.4 (31.0-35.0) g/dl RDW 13.1 (11.0-16.0) % Plt Count 203 (160-400) X10*3/uL MPV 9.8 (9.4-12.3) fL Immature Gran % (Auto) 0.2 (0.0-0.4) % Neut % (Auto) 50.3 (45-73) % Lymph % (Auto) 37.3 (20-40) % [place] % (Auto) 9.3 (2-11) % Eos % (Auto) 2.6 (0-4) % Baso % (Auto) 0.3 (0-2) % Lymph # (Auto) 2.2 (1.2-4.9) X10*3/uL [place] # (Auto) 0.5 (0.1-1.2) X10*3/uL Eos # (Auto) 0.2 (0.0-0.4) X10*3/uL Baso # (Auto) 0.0 (0.0-0.2) X10*3/uL Abs Immat Gran (auto) 0.01 (0.00-0.03) X10*3/uL Absolute Neuts (auto) 2.9 (2.0-8.3) x10*3/uL Absolute Nucleated RBC 0.000 (0.0-0.012) X10*3/uL Nucleated RBC % (auto) 0.0 (0.0-0.2) /100WBC PT 11.4 (11.1-13.3) SEC INR 0.9 (0.9-1.1) APTT 34.8 (26.0-36.4) SEC Sodium 138 (135-145) mmol/L Potassium 3.9 (3.3-5.1) mmol/L Chloride 112 H (96-108) mmol/L Carbon Dioxide 19 L (22-29) mmol/L Anion Gap 11 L (12-20) BUN 13 (9-16) mg/dL Creatinine 0.78 (0.5-1.4) mg/dL Estim Creat Clear Calc 116.1 Estimated GFR > 60 Random Glucose 99 (60-115) mg/dL Calcium 9.2 (8.4-10.2) mg/dL Magnesium 2.0 (1.6-2.6) mg/dL Total Bilirubin 0.3 (0.0-1.0) mg/dL AST 32 H (5-31) U/L ALT 12 (0-31) U/L Alkaline Phosphatase 62 (39-117) U/L Troponin I High Sens (<3.5-17.0) ng/L Total Protein 6.8 (6.5-8.0) g/dL Albumin 3.6 (3.5-5.0) g/dL Beta HCG, Quant < 2 mIU/mL Urine Color Urine Appearance Urine pH (5.0-9.0) Ur Specific [place] (1.005-1.025) Urine Protein (Neg-Trace) mg/dL Urine Glucose (UA) (Negative) mg/dL Urine Ketones (Negative) mg/dL Urine Blood (Negative) Urine Nitrite (Negative) Ur Leukocyte Esterase (Negative) COVID-19 (LILIA) (Negative) COVID-19 Clin Com 05/21/23 05/21/23 05/21/23 Range/Units 14:28 14:28 16:10 WBC (4.8-10.8) X10*3/uL RBC (4.20-5.50) X10*6/uL Hgb (12.0-16.0) g/dl Hct (37.0-47.0) % MCV (80.0-98.0) fL MCH (27.0-33.0) pg MCHC (31.0-35.0) g/dl RDW (11.0-16.0) % Plt Count (160-400) X10*3/uL MPV (9.4-12.3) fL Immature Gran % (Auto) (0.0-0.4) % Neut % (Auto) (45-73) % Lymph % (Auto) (20-40) % [place] % (Auto) (2-11) % Eos % (Auto) (0-4) % Baso % (Auto) (0-2) % Lymph # (Auto) (1.2-4.9) X10*3/uL [place] # (Auto) (0.1-1.2) X10*3/uL Eos # (Auto) (0.0-0.4) X10*3/uL Baso # (Auto) (0.0-0.2) X10*3/uL Abs Immat Gran (auto) (0.00-0.03) X10*3/uL Absolute Neuts (auto) (2.0-8.3) x10*3/uL Absolute Nucleated RBC (0.0-0.012) X10*3/uL Nucleated RBC % (auto) (0.0-0.2) /100WBC PT (11.1-13.3) SEC INR (0.9-1.1) APTT (26.0-36.4) SEC Sodium (135-145) mmol/L Potassium (3.3-5.1) mmol/L Chloride (96-108) mmol/L Carbon Dioxide (22-29) mmol/L Anion Gap (12-20) BUN (9-16) mg/dL Creatinine (0.5-1.4) mg/dL Estim Creat Clear Calc Estimated GFR Random Glucose (60-115) mg/dL Calcium (8.4-10.2) mg/dL Magnesium (1.6-2.6) mg/dL Total Bilirubin (0.0-1.0) mg/dL AST (5-31) U/L ALT (0-31) U/L Alkaline Phosphatase (39-117) U/L Troponin I High Sens < 2.7 (<3.5-17.0) ng/L Total Protein (6.5-8.0) g/dL Albumin (3.5-5.0) g/dL Beta HCG, Quant mIU/mL Urine Color Yellow Urine Appearance Clear Urine pH 5.5 (5.0-9.0) Ur Specific [place] 1.020 (1.005-1.025) Urine Protein Negative (Neg-Trace) mg/dL Urine Glucose (UA) Negative (Negative) mg/dL Urine Ketones Negative (Negative) mg/dL Urine Blood Negative (Negative) Urine Nitrite Negative (Negative) Ur Leukocyte Esterase Negative (Negative) COVID-19 (LILIA) Negative (Negative) COVID-19 Clin Com See Note Independent Interpretation I performed an independent interpretation of an: EKG ( normal sinus rhythm a multiple PVCs) External Record Review External record reviewed: Inpatient record Chronic Conditions Patient?s care impacted by: Hypertension Discharge Plan Discharge Clinical Impression: Syncope, Bigeminy Patient Disposition: Admitted As Inpatient
[2023-05-21 15:05] LABS: Troponin-I High Sensitivity < 2.7 ng/L (<3.5-17.0)
[2023-05-21] MEDS: 0.9 % Sodium Chloride 1,000 ML 999 ML IVCONT (15:50)
[2023-05-21 16:21] LABS: Appearance Urine Clear; Color Urine Yellow; Glucose Urine UA Negative (Negative); Leukocyte Esterase Urine Negative (Negative); Nitrite Urine Negative (Negative); PH 5.5 (5.0-9.0); Urine Blood Negative (Negative); Urine Ketones Negative (Negative); Urine Protein Negative (Neg-Trace)
--- NOTE | 2023-05-21 17:07 | PM.IMHP ---
History of Present Illness Date of Service: 05/21/23 Attending physician on admission: Mamadou Pratt Chief Complaint: syncope/near syncope 33 year old female with history htn, mood disorder, who is s/p gastric sleevectomy presented to the ED for evaluation of near syncope/syncope. Per the patient, yesterday she was doing more activity than normal, helping her friend get ready for her wedding, and then passed out for about 2 minutes. No head strike. When she came to, she was a little disoriented and sweaty. No seizure history or seizure like movements noted. Has had VASQUEZ in past, but responds to albuterol. No other sob, palpitations, or chest pain. Does report history of 2nd degree AV santi block in her son and niece and unspecified arrhythmia in her father and paternal aunts. On arrival VSS. Negative orthostatic vital signs. CBC unremarkable. Renal function and lytes largely unremarkable including normal magnesium of 2.0. Trop imdetectable. UA unremarkable. Urine Hcg negative. Negative COVID 19. CXR negative. Head CT negative for any acute intracranial abnormality. CT of the cervical spine negative for any acute fracture, subluxation or dislocation. EKG shows NSR with frequency PVC's in bigeminy pattern, rate 85, no MILA or depression. Case discussed with cardiology recommending observation and possible metoprolol. However patient has had urticaria and possible anaphylaxis with labetalol. Review of Systems Review of Systems: General: No fevers, malaise, unintentional weight loss HEENT: No blurred vision, diplopia. No sore throat, nasal congestion, rhinorrhea, sinus pain, ear pain Cardiovascular: No chest pain, palpitations, or leg edema. +syncope Respiratory: No shortness of breath, wheezing, cough GI: No abdominal pain, nausea, vomiting, diarrhea, constipation, melena, hematochezia : No dysuria, hematuria, increased urinary frequency, decreased urinary output MSK: No myalgia, back pain Neuro: No headaches, weakness, paresthesias Skin: No rashes or lesions [facility] Medical History Gestational diabetes Heart murmur Hypertension PCOS (polycystic ovarian syndrome) Pre-eclampsia Family History Mother Stroke Hypertension Father No problems noted. Brother No problems noted. Brother No problems noted. Sister No problems noted. Sister No problems noted. Son Asthma ADHD Heart murmur Son No problems noted. 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 Allergies Allergy/AdvReac Type Severity Reaction Status Date / Time labetalol Allergy Hives Verified 05/10/23 11:23 sunflower seed Allergy Hives Verified 05/10/23 11:23 Active Medications: Current Medications Acetaminophen (Acetaminophen 325 Mg Tablet) 650 mg PO Q6H PRN PRN Reason: Pain, Mild (Pain Scale 1-3) Docusate Sodium (Docusate Sodium 100 Mg Capsule) 100 mg PO DAILY PRN PRN Reason: Constipation Enoxaparin Sodium (Enoxaparin Sodium 40 Mg/0.4 Ml Syringe) 40 mg SUBCUT Q24H PRIMO Sodium Chloride (Ns) 1,000 mls @ 100 mls/hr IVCONT .Q10H PRIMO Ondansetron HCl (Ondansetron Hcl 4 Mg/2 Ml Vial) 4 mg IVPUSH Q8H PRN PRN Reason: Nausea and Vomiting Pharmacy Consult (Consult Rx Perform Med Rec) 1 each MISCELLANE ONCE PRN PRN Reason: Consult order Sodium Chloride (0.9 % Sodium Chloride Flush 3 Ml Syringe) 3 ml IVFLUSH QSHIFT PRIMO Home Medications Medication Instructions Recorded Confirmed Last Taken Type wqnosiec-zyerzstq-uuey 45 mg-folic 1 cap PO DAILY 01/14/22 04/24/23 Unknown History acid 800 mcg-vit K 120 mcg capsule (Bariatric Multivitamins) sertraline 50 mg tablet (Zoloft) 50 mg PO DAILY 01/14/22 04/24/23 04/27/23 History nifedipine 30 mg tablet,extended 30 mg PO DAILY 1004/24/23 04/27/23 History release albuterol 90 mcg/actuation aerosol 2 mcg inhalation QID PRN Wheezing 04/27/23 04/27/23 04/16/23 History inhaler hydralazine 25 1 cap PO QID anxiety 04/27/23 04/27/23 04/27/23 History mg-hydrochlorothiazide 25 mg capsule Physical Exam Vital Signs and Narrative: Vital Signs: Last Vital Signs Temp 97.5 F 05/21/23 14:00 Pulse 81 05/21/23 17:06 Resp 18 05/21/23 15:50 BP 151/95 H 05/21/23 17:06 Pulse Ox 100 05/21/23 15:55 O2 Del Method Room Air 05/21/23 15:55 BMI result Body Mass Index 32.8 Constitutional - Awake and Alert, No apparent distress Eyes - PERRLA, EOMI Cardiovascular - S1S2, RRR, No edema Respiratory - Normal lung expansion, Normal respiratory effort, No respiratory distress, CTA bilaterally Gastrointestinal - NT / ND; +BS; No rebound or guarding Extremities - no calf tenderness bilaterally, no swelling Skin - Warm/Dry Neurological - Alert & oriented x3 Psychological - Appropriate affect Results Labs 05/21/23 14:28 05/21/23 14:28 Labs: Laboratory Results - last 24 hr 05/21/23 05/21/23 05/21/23 14:28 14:28 14:28 MCV 87.0 MCH 28.2 MCHC 32.4 RDW 13.1 Plt Count 203 MPV 9.8 Immature Gran % (Auto) 0.2 Neut % (Auto) 50.3 Lymph % (Auto) 37.3 [place] % (Auto) 9.3 Eos % (Auto) 2.6 Baso % (Auto) 0.3 Lymph # (Auto) 2.2 [place] # (Auto) 0.5 Eos # (Auto) 0.2 Baso # (Auto) 0.0 Abs Immat Gran (auto) 0.01 Absolute Neuts (auto) 2.9 Absolute Nucleated RBC 0.000 Nucleated RBC % (auto) 0.0 PT 11.4 INR 0.9 APTT 34.8 Anion Gap 11 L Estim Creat Clear Calc 116.1 Estimated GFR > 60 Random Glucose 99 Calcium 9.2 Magnesium 2.0 Total Bilirubin 0.3 AST 32 H ALT 12 Alkaline Phosphatase 62 Total Protein 6.8 Albumin 3.6 Beta HCG, Quant < 2 Urine Color Urine Appearance Urine pH Ur Specific [place] Urine Protein Urine Glucose (UA) Urine Ketones Urine Blood Urine Nitrite Ur Leukocyte Esterase COVID-19 (LILIA) COVID-19 Clin Com 05/21/23 05/21/23 14:28 16:10 MCV MCH MCHC RDW Plt Count MPV Immature Gran % (Auto) Neut % (Auto) Lymph % (Auto) [place] % (Auto) Eos % (Auto) Baso % (Auto) Lymph # (Auto) [place] # (Auto) Eos # (Auto) Baso # (Auto) Abs Immat Gran (auto) Absolute Neuts (auto) Absolute Nucleated RBC Nucleated RBC % (auto) PT INR APTT Anion Gap Estim Creat Clear Calc Estimated GFR Random Glucose Calcium Magnesium Total Bilirubin AST ALT Alkaline Phosphatase Total Protein Albumin Beta HCG, Quant Urine Color Yellow Urine Appearance Clear Urine pH 5.5 Ur Specific [place] 1.020 Urine Protein Negative Urine Glucose (UA) Negative Urine Ketones Negative Urine Blood Negative Urine Nitrite Negative Ur Leukocyte Esterase Negative COVID-19 (LILIA) Negative COVID-19 Clin Com See Note Imaging Radiologist's Impressions: Impressions Cervical Spine CT 05/21/23 15:39 IMPRESSION: Unremarkable examination. Fleischner guidelines were followed. Head CT 05/21/23 15:39 IMPRESSION: 1. No acute intracranial pathology. 2. Mild debris in the external auditory canals bilaterally could represent cerumen. Correlate with physical exam. Chest X-Ray 05/21/23 15:44 IMPRESSION: Normal chest x-ray. Assessment and Plan (1) Syncope: Status: Acute (2) Bigeminy: Status: Acute Plan 33 year old female with history htn, mood disorder, who is s/p gastric sleevectomy to be observed for syncope. #Cardiogenic syncope -EKG shows NSR with frequency PVC's in bigeminy pattern, rate 85, no MILA or depression -Orthostatic vital signs negative -Mag 2.0 -Anaphylxis/urticaria with beta blockers -cardiology consult -monitor on telemetry #HTn -cotinue nifedipine #Mood disorder -continue home meds DVT prophylaxis- lovenox full code Time Spent With Patient Time: Total time managing care of this patient today ____ minutes. Quality Stroke Does the patient have a stroke diagnosis?: No VTE Prior VTE?: No VTE Risk Level:: Medical - moderate - high VTE Device Contraindication: Treatment Not Indicated VTE Drug Contraindication: Treatment Not Indicated
--- NOTE | 2023-05-21 18:22 | PC.NURSE ---
pt requesting to leave AMA to check in on her family that she has not heard from all day. has a baby at home. pt sts that she wants to come back to be admitted but needs to make sure her family is okay first. provider notified.
--- NOTE | 2023-05-21 18:39 | PHA.MEDREC ---
Pharmacy Consult ? Medication Reconciliation Pharmacy has completed the medication reconciliation. spoke with patient to verify medications. No claim history to support however [facility] was able to verify.
[2023-05-21] MEDS: 0.9 % Sodium Chloride 1,000 ML 100 ML IVCONT (19:04)
[2023-05-21] MEDS: Acetaminophen 325 MG TABLET 650 MG PO (22:07)
[2023-05-21] MEDS: hydrOXYzine HCL 25 MG TABLET PO (22:10)
[2023-05-22 00:20] VITALS: BMI 34.9
[2023-05-22 00:59] VITALS: BP 133/73; PULSE 65; RESP 18; TEMP 36.7; O2SAT 99
[2023-05-22] MEDS: 0.9 % Sodium Chloride 1,000 ML 100 ML IVCONT (01:33)
[2023-05-22] MEDS: 0.9 % Sodium Chloride Flush 3 ML SYRINGE IVFLUSH (01:34)
[2023-05-22 04:00] VITALS: BP 125/62; PULSE 68; RESP 16; TEMP 36.9; O2SAT 98
[2023-05-22 05:28] VITALS: BP 138/81; PULSE 74
[2023-05-22 06:35] LABS: MANUAL DIFF FLAG NO
[2023-05-22 06:52] LABS: Anion Gap 12 (12-20); Blood Urea Nitrogen 13 mg/dL (9-16); Calcium 8.7 mg/dL (8.4-10.2); Carbon Dioxide 19 mmol/L (22-29); Chloride 113 mmol/L (96-108); Creatinine Clr Calc Pharmacy 121.5; Estimated Glomerular Filt Rate > 60; Glucose Random 85 mg/dL (60-115); Potassium 3.9 mmol/L (3.3-5.1); Sodium 140 mmol/L (135-145)
[2023-05-22 06:59] LABS: Basophils Percent Auto 0.4 % (0-2); Eosinophils Absolute Auto 0.1 X10*3/uL (0.0-0.4); Eosinophils Percent Auto 1.9 % (0-4); Hematocrit 34.5 % (37.0-47.0); Hemoglobin 11.2 g/dl (12.0-16.0); Imm Gran Abs Auto 0.01 X10*3/uL (0.00-0.03); Imm Gran Pct Auto 0.2 % (0.0-0.4); Lymphocytes Absolute Auto 2.1 X10*3/uL (1.2-4.9); Lymphocytes Percent Auto 40.2 % (20-40); Mean Corpuscular HGB Conc 32.5 g/dl (31.0-35.0); Mean Corpuscular Hemoglobin 28.6 pg (27.0-33.0); Mean Platelet Volume 10.7 fL (9.4-12.3); Monocytes Absolute Auto 0.4 X10*3/uL (0.1-1.2); Monocytes Percent Auto 7.8 % (2-11); Neutrophils Absolute Auto 2.6 x10*3/uL (2.0-8.3); Neutrophils Percent Auto 49.5 % (45-73); Platelet Count 194 X10*3/uL (160-400); Red Blood Count 3.92 X10*6/uL (4.20-5.50); Red Cell Distribution Width 13.2 % (11.0-16.0); White Blood Count 5.2 X10*3/uL (4.8-10.8)
--- NOTE | 2023-05-22 07:00 | CA_ITS ---
Transthoracic Echocardiogram Patient (Last, First, Middle): Ms Augustine, Gender: Female Date of : 1990 Age: 33 Procedure Date: 05/22/2023 Procedure Type: Transthoracic Echocardiogram Location: [facility] [place] Height: 167.64 cm Weight: 97.98 kg BSA: 2.07 m2 Heart Rate: bpm BP: 121 / 57 mmHg Watermaster: Referring MD: Cammy FRASER Symptoms: bigeminy, syncope Study Quality: Adequate Conclusions: - There is mildly increased left ventricular wall thickness. The left ventricular systolic function is normal. The visually estimated ejection fraction is between 55-60%. - LV size is at upper limit of normal. - Mildly increased right ventricular cavity size. There is normal right ventricular systolic function. - No significant valvular or pericardial pathology. Findings Left Ventricle There is mildly increased left ventricular wall thickness. The left ventricular systolic function is normal. The visually estimated ejection fraction is between 55-60%. There is no evidence of regional wall motion abnormalities. Diastolic function is normal for age. LV size is at upper limit of normal. Right Ventricle Mildly increased right ventricular cavity size. There is normal right ventricular systolic function. Atria Both atria are normal in size. Aortic Valve Normal aortic valve structure and function. There is no aortic valve stenosis. There is no aortic valve regurgitation. Mitral Valve The mitral valve appears normal. There is trace mitral valve regurgitation. There is no mitral valve stenosis. Pulmonic Valve Normal pulmonic valve structure and function. There is trace pulmonic valve regurgitation. Tricuspid Valve Normal tricuspid valve structure. There is trace tricuspid valve regurgitation. Normal right atrial pressure. There is no evidence of pulmonary hypertension. Great Vessels All visible segments of the aorta are normal in size. The visualized portions of the pulmonary artery and branches are normal. Venous The inferior vena cava is normal in size and collapses greater than 50% with inspiration. Pericardium/Pleural There is no evidence of pericardial effusion. Prior Study Comparison No prior study available for comparison. Measurements 2D Linear Measurements IVSd: 1.10 0.6-0.9/0.6-1.0 cm LVIDd: 5.10 3.9-5.3/4.2-5.9 cm LVIDd Index: 2.46 2.4-3.2/2.2-3.1 cm/m2 LVIDs: 3.50 2.0-3.6 cm LVPWd: 1.10 0.7-1.1 cm Ao Root: 2.70 2.1-3.5 cm LA Diam: 3.90 2.7-3.8/3.0-4.0 cm LAIDs Index: 1.88 1.5-2.3 cm/m2 LV Mass: 266.62 67-162/88-224 g LV Mass Index: 128.80 43-95/49-115 g/m2 LVOT Diam: 2.00 3.0+(-)1.3 cm 2D Systolic Function EF 4C: 65.60 >55% EF 2C: 61.40 >55% EF BiP: 62.40 >55% Mitral Valve MV VTI: 0.44 MV Pk Regino: 0.95 MV Mn Regino: 0.56 MV Pk Grad: 4.00 MV Mn Grad: 1.00 MV Pk E: 0.78 MV PK A: 0.72 MV Decel Time: 306.00 E/A: 1.10 E'Lateral: 11.30 E'Medial: 10.70 E/E' Med: 7.30 E/E' Lat: 6.90 PHT: 90.00 MVA PHT: 2.44 MVA Continuity: 1.58 Decel [place]: 2.56 Aortic Valve AoV Pk Regino: 2.00 AoV Mn Regino: 1.26 AoV VTI: 0.40 AoV Pk Grad: 16.00 Aov Mn Grad: 8.00 SHANNAN Cont.VTI: 1.75 LVOT LVOT Pk Regino: 1.21 LVOT Mn Regino: 0.75 LVOT VTI: 0.22 LVOT Pk Grad: 6.00 LVOT Mn Grad: 3.00 LVOT Diam: 2.00 LVOT Area: 3.14 Diastolic Function MV Pk E: 0.78 MV Pk A: 0.72 E/A: 1.10 E'Medial: 10.70 E/E' Med: 7.30 E' Laterial: 11.30 E/E' Lat: 6.90 Right Ventricle TAPSE (mm): 34.10 TVS' Regino: 17.30 Tricuspid Valve TR Pk Regino: 1.94 TR Pk Grad: 15.00 Great Vessels Aorta Ao Root-2D: 2.70 2.0-3.7 cm Ao Arch: 3.00 Pulmonary Valve PV Pk Regino: 1.78 Peak PV Grad: 13.00 Updated in Other Vendor System with Status of Final Arcadio Corona MD electronically signed on 05/22/2023 11:09:03 AM with status of Final
[2023-05-22 07:20] VITALS: BP 121/57; PULSE 71; RESP 20; TEMP 37.3; O2SAT 98
--- NOTE | 2023-05-22 08:20 | HO.PM.IMPN ---
Subjective Subjective Date of Service: 05/22/23 Interval History: no further episodes, had 3 beat pvcs on tele Physical Exam Vital Signs: Vital Signs: Last Vital Signs Temp 99.1 F 05/22/23 07:20 Pulse 71 05/22/23 07:20 Resp 20 05/22/23 07:20 BP 121/57 L 05/22/23 07:20 Pulse Ox 98 05/22/23 07:20 O2 Del Method Room Air 05/22/23 07:20 BMI result Body Mass Index 34.9 General: AO X 3, no acute distress Resp: CTA bilateral, no accessory muscles used CVS: S1,S2,RRR GI: soft, non tender, non distended Neuro: motor grossly intact, alert Psych: appropriate affect, appropriate insight Objective Data Active Medications Acetaminophen (Acetaminophen 325 Mg Tablet) 650 mg PO Q6H PRN PRN Reason: Pain, Mild (Pain Scale 1-3) Last Admin: 05/21/23 22:07 Dose: 650 mg Documented By: FRANSISCA Albuterol Sulfate (Albuterol Sulfate 90 Mcg 8 Gm Inhaler) 2 puff INHALE Q4H PRN PRN Reason: Shortness Of Breath Or Wheezin Docusate Sodium (Docusate Sodium 100 Mg Capsule) 100 mg PO DAILY PRN PRN Reason: Constipation Enoxaparin Sodium (Enoxaparin Sodium 40 Mg/0.4 Ml Syringe) 40 mg SUBCUT Q24H [facility] Last Admin: 05/21/23 18:09 Dose: Not Given Documented By: TERRY Non-Admin Reason: Patient Refused Hydroxyzine HCl (Hydroxyzine Hcl 25 Mg Tablet) 25 mg PO TID PRN PRN Reason: Anxiety Last Admin: 05/21/23 22:10 Dose: 25 mg Documented By: FRANSISCA Sodium Chloride (Ns) 1,000 mls @ 100 mls/hr IVCONT .Q10H [facility] Last Admin: 05/22/23 01:33 Dose: 100 mls/hr Documented By: JANNET Multivitamins/Vitamin C (Multivitamin Tablet) 1 tab PO DAILY [facility] Nifedipine (Nifedipine Er 30 Mg Tab.Er.24) 30 mg PO DAILY [facility] Ondansetron HCl (Ondansetron Hcl 4 Mg/2 Ml Vial) 4 mg IVPUSH Q8H PRN PRN Reason: Nausea and Vomiting Pharmacy Consult (Consult Rx Perform Med Rec) 1 each MISCELLANE ONCE PRN PRN Reason: Consult order Sertraline HCl (Sertraline Hcl 50 Mg Tablet) 50 mg PO DAILY [facility] Sodium Chloride (0.9 % Sodium Chloride Flush 3 Ml Syringe) 3 ml IVFLUSH QSHIFT [facility] Last Admin: 05/22/23 01:34 Dose: 3 ml Documented By: JANNET Labs 05/22/23 06:23 05/22/23 06:23 Labs: Laboratory Results - last 24 hr 05/21/23 05/21/23 05/21/23 14:28 14:28 14:28 MCV 87.0 MCH 28.2 MCHC 32.4 RDW 13.1 Plt Count 203 MPV 9.8 Immature Gran % (Auto) 0.2 Neut % (Auto) 50.3 Lymph % (Auto) 37.3 [place] % (Auto) 9.3 Eos % (Auto) 2.6 Baso % (Auto) 0.3 Lymph # (Auto) 2.2 [place] # (Auto) 0.5 Eos # (Auto) 0.2 Baso # (Auto) 0.0 Abs Immat Gran (auto) 0.01 Absolute Neuts (auto) 2.9 Absolute Nucleated RBC 0.000 Nucleated RBC % (auto) 0.0 PT 11.4 INR 0.9 APTT 34.8 Anion Gap 11 L Estim Creat Clear Calc 116.1 Estimated GFR > 60 Random Glucose 99 Calcium 9.2 Magnesium 2.0 Total Bilirubin 0.3 AST 32 H ALT 12 Alkaline Phosphatase 62 Total Protein 6.8 Albumin 3.6 Beta HCG, Quant < 2 Urine Color Urine Appearance Urine pH Ur Specific [place] Urine Protein Urine Glucose (UA) Urine Ketones Urine Blood Urine Nitrite Ur Leukocyte Esterase COVID-19 ([facility]ILIA) COVID-19 Clin Com 05/21/23 05/21/23 05/22/23 14:28 16:10 06:23 MCV 88.0 MCH 28.6 MCHC 32.5 RDW 13.2 Plt Count 194 MPV 10.7 Immature Gran % (Auto) 0.2 Neut % (Auto) 49.5 Lymph % (Auto) 40.2 H [place] % (Auto) 7.8 Eos % (Auto) 1.9 Baso % (Auto) 0.4 Lymph # (Auto) 2.1 [place] # (Auto) 0.4 Eos # (Auto) 0.1 Baso # (Auto) 0.0 Abs Immat Gran (auto) 0.01 Absolute Neuts (auto) 2.6 Absolute Nucleated RBC 0.000 Nucleated RBC % (auto) 0.0 PT INR APTT Anion Gap Estim Creat Clear Calc Estimated GFR Random Glucose Calcium Magnesium Total Bilirubin AST ALT Alkaline Phosphatase Total Protein Albumin Beta HCG, Quant Urine Color Yellow Urine Appearance Clear Urine pH 5.5 Ur Specific [place] 1.020 Urine Protein Negative Urine Glucose (UA) Negative Urine Ketones Negative Urine Blood Negative Urine Nitrite Negative Ur Leukocyte Esterase Negative COVID-19 (LILIA) Negative COVID-19 Clin Com See Note 05/22/23 06:23 MCV MCH MCHC RDW Plt Count MPV Immature Gran % (Auto) Neut % (Auto) Lymph % (Auto) [place] % (Auto) Eos % (Auto) Baso % (Auto) Lymph # (Auto) [place] # (Auto) Eos # (Auto) Baso # (Auto) Abs Immat Gran (auto) Absolute Neuts (auto) Absolute Nucleated RBC Nucleated RBC % (auto) PT INR APTT Anion Gap 12 Estim Creat Clear Calc 121.5 Estimated GFR > 60 Random Glucose 85 Calcium 8.7 Magnesium Total Bilirubin AST ALT Alkaline Phosphatase Total Protein Albumin Beta HCG, Quant Urine Color Urine Appearance Urine pH Ur Specific [place] Urine Protein Urine Glucose (UA) Urine Ketones Urine Blood Urine Nitrite Ur Leukocyte Esterase COVID-19 ([facility]ILIA) COVID-19 Clin Com Assessment and Plan (1) Syncope: Status: Acute Plan 33F PMH HTN, gestational DM, mood disorder, obesity s/p sleeve gastrectomy, presented with syncope. syncope differential includes cardiac arrhythmia (bigeminy, + family history) vs dehydration/orthostasis monitor on tele, cardio eval, echo HTN nifedipine mood disorder zoloft dvt prophylaxis - lovenox full code reason for continued hospitalization:working up cardiac arrhythmia Time Spent With Patient Time: Total time managing care of this patient today ____ minutes. Quality Stroke Does the patient have a stroke diagnosis?: No VTE Prior VTE?: No VTE Risk Level:: Medical - moderate - high VTE Device Contraindication: Treatment Not Indicated VTE Drug Contraindication: Treatment Not Indicated
[2023-05-22] MEDS: Multivitamin TABLET 1 TAB PO (09:36)
[2023-05-22] MEDS: Sertraline HCL 50 MG TABLET PO (09:36)
[2023-05-22] MEDS: NIFEdipine ER 30 MG TAB.ER.24 PO (09:36)
[2023-05-22] MEDS: hydrOXYzine HCL 25 MG TABLET PO (09:40)
--- NOTE | 2023-05-22 09:44 | MHC.CM.PN ---
Addendum entered by Ruth Heller RN 05/22/23 11:31: HCP COMPLETED, PT'S SISTER CATIE KULKARNI CONTACT NUMBER [phone], PT PROVIDED W/EDUCATIONAL HANDOUT, ORIGINAL AND 2 COPIES. 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 PT REPORTS SHE WOULD LIKE TO COMPLETE A HCP PRIOR TO D/C NAMING HER SERGIO MASTERS [phone] HER [facility] AND PT'S SISTER CATIE KULKARNI HER ALTERNATE. D/C PLAN: HOME SELF-CARE W/FAMILY FOR TRANSPORT
--- NOTE | 2023-05-22 11:15 | P.CONCA_ITS ---
History of Present Illness History of Present Illness Date of Service: 05/22/23 Requesting physician: Mamadou Pratt Chief complaint: bigeminy, syncope Narrative: 33-year-old female who presented to [facility] for syncope. She said she was in [place] and was in a restaurant waiting for table and was standing for 1 hour in the sun. She said she started feeling dizzy and lightheaded and then passed out. She regained consciousness quickly and did not have any seizure-like activity. She was not confused afterward. She continued to feel unwell and decided to come to the hospital afterwards and came to [facility]. She has background history of bariatric surgery and she has lost 140 lb at this point. She also has background of hypertension and currently takes nifedipine. She has chronic PVCs by her description. 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 No exertional, anginal chest discomfort. She is active and has no exertional symptoms in a day-to-day life. She previously had episode of syncope during few years back. [facility] Past Medical History Medical History Gestational diabetes Heart murmur Hypertension PCOS (polycystic ovarian syndrome) Pre-eclampsia Family History Family History Mother Stroke Hypertension Father No problems noted. Brother No problems noted. Brother No problems noted. Sister No problems noted. Sister No problems noted. Son Asthma ADHD Heart murmur Son No problems noted. 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 Meds Allergies Allergy/AdvReac Type Severity Reaction Status Date / Time labetalol Allergy Hives Verified 05/10/23 11:23 sunflower seed Allergy Hives Verified 05/10/23 11:23 Active Medications: Current Medications Acetaminophen (Acetaminophen 325 Mg Tablet) 650 mg PO Q6H PRN PRN Reason: Pain, Mild (Pain Scale 1-3) Last Admin: 05/21/23 22:07 Dose: 650 mg Albuterol Sulfate (Albuterol Sulfate 90 Mcg 8 Gm Inhaler) 2 puff INHALE Q4H PRN PRN Reason: Shortness Of Breath Or Wheezin Docusate Sodium (Docusate Sodium 100 Mg Capsule) 100 mg PO DAILY PRN PRN Reason: Constipation Enoxaparin Sodium (Enoxaparin Sodium 40 Mg/0.4 Ml Syringe) 40 mg SUBCUT Q24H [facility] Last Admin: 05/21/23 18:09 Dose: Not Given Hydroxyzine HCl (Hydroxyzine Hcl 25 Mg Tablet) 25 mg PO TID PRN PRN Reason: Anxiety Last Admin: 05/22/23 09:40 Dose: 25 mg Sodium Chloride (Ns) 1,000 mls @ 100 mls/hr IVCONT .Q10H [facility] Last Admin: 05/22/23 01:33 Dose: 100 mls/hr Multivitamins/Vitamin C (Multivitamin Tablet) 1 tab PO DAILY [facility] Last Admin: 05/22/23 09:36 Dose: 1 tab Nifedipine (Nifedipine Er 30 Mg Tab.Er.24) 30 mg PO DAILY [facility] Last Admin: 05/22/23 09:36 Dose: 30 mg Ondansetron HCl (Ondansetron Hcl 4 Mg/2 Ml Vial) 4 mg IVPUSH Q8H PRN PRN Reason: Nausea and Vomiting Pharmacy Consult (Consult Rx Perform Med Rec) 1 each MISCELLANE ONCE PRN PRN Reason: Consult order Sertraline HCl (Sertraline Hcl 50 Mg Tablet) 50 mg PO DAILY [facility] Last Admin: 05/22/23 09:36 Dose: 50 mg Sodium Chloride (0.9 % Sodium Chloride Flush 3 Ml Syringe) 3 ml IVFLUSH QSHIFT [facility] Last Admin: 05/22/23 01:34 Dose: 3 ml Home Medications Medication Instructions Recorded Confirmed Last Taken Type sertraline 50 mg tablet (Zoloft) 50 mg PO DAILY 01/14/22 05/21/23 04/27/23 History nifedipine 30 mg tablet,extended 30 mg PO DAILY 08/10/22 05/21/23 04/27/23 History release albuterol sulfate 90 mcg/actuation 2 puff inhalation Q4-6H PRN 05/21/23 05/21/23 Unknown History aerosol inhaler Shortness Of Breath Or Wheezing hydroxyzine HCl 25 mg tablet 25 mg PO TID PRN Anxiety 05/21/23 05/21/23 Unknown History multivitamin 1 tab PO DAILY 05/21/23 05/21/23 Unknown History Physical Exam Vital Signs: Vital Signs: Last Vital Signs Temp 99.1 F 05/22/23 07:20 Pulse 71 05/22/23 07:20 Resp 20 05/22/23 07:20 BP 121/57 L 05/22/23 07:20 Pulse Ox 98 05/22/23 07:20 O2 Del Method Room Air 05/22/23 07:20 BMI result Body Mass Index 34.9 GENERAL APPEARANCE: in no acute distress, pleasant. NECK: no carotid bruit, no jugular venous distention. SKIN: no suspicious lesions, warm and dry. HEART: no murmurs, regular rate and rhythm. LUNGS: clear to auscultation bilaterally. ABDOMEN: soft, nontender. EXTREMITIES: no edema. PERIPHERAL PULSES: equal. NEUROLOGIC: No gross deficits, AAO X 3 Objective Labs and Meds 05/22/23 06:23 05/22/23 06:23 Lab results: Laboratory Results - last 24 hr 05/21/23 05/21/23 05/21/23 14:28 14:28 14:28 WBC 5.8 RBC 4.22 Hgb 11.9 L Hct 36.7 L MCV 87.0 MCH 28.2 MCHC 32.4 RDW 13.1 Plt Count 203 MPV 9.8 Immature Gran % (Auto) 0.2 Neut % (Auto) 50.3 Lymph % (Auto) 37.3 [place] % (Auto) 9.3 Eos % (Auto) 2.6 Baso % (Auto) 0.3 Lymph # (Auto) 2.2 [place] # (Auto) 0.5 Eos # (Auto) 0.2 Baso # (Auto) 0.0 Abs Immat Gran (auto) 0.01 Absolute Neuts (auto) 2.9 Absolute Nucleated RBC 0.000 Nucleated RBC % (auto) 0.0 PT 11.4 INR 0.9 APTT 34.8 Sodium 138 Potassium 3.9 Chloride 112 H Carbon Dioxide 19 L Anion Gap 11 L BUN 13 Creatinine 0.78 Estim Creat Clear Calc 116.1 Estimated GFR > 60 Random Glucose 99 Calcium 9.2 Magnesium 2.0 Total Bilirubin 0.3 AST 32 H ALT 12 Alkaline Phosphatase 62 Troponin I High Sens Total Protein 6.8 Albumin 3.6 Beta HCG, Quant < 2 Urine Color Urine Appearance Urine pH Ur Specific [place] Urine Protein Urine Glucose (UA) Urine Ketones Urine Blood Urine Nitrite Ur Leukocyte Esterase COVID-19 ([facility]) COVID-19 Clin Com 05/21/23 05/21/23 05/21/23 14:28 14:28 16:10 WBC RBC Hgb Hct MCV MCH MCHC RDW Plt Count MPV Immature Gran % (Auto) Neut % (Auto) Lymph % (Auto) [place] % (Auto) Eos % (Auto) Baso % (Auto) Lymph # (Auto) [place] # (Auto) Eos # (Auto) Baso # (Auto) Abs Immat Gran (auto) Absolute Neuts (auto) Absolute Nucleated RBC Nucleated RBC % (auto) PT INR APTT Sodium Potassium Chloride Carbon Dioxide Anion Gap BUN Creatinine Estim Creat Clear Calc Estimated GFR Random Glucose Calcium Magnesium Total Bilirubin AST ALT Alkaline Phosphatase Troponin I High Sens < 2.7 Total Protein Albumin Beta HCG, Quant Urine Color Yellow Urine Appearance Clear Urine pH 5.5 Ur Specific [place] 1.020 Urine Protein Negative Urine Glucose (UA) Negative Urine Ketones Negative Urine Blood Negative Urine Nitrite Negative Ur Leukocyte Esterase Negative COVID-19 ([facility]ILIA) Negative COVID-19 Clin Com See Note 05/22/23 05/22/23 06:23 06:23 WBC 5.2 RBC 3.92 L Hgb 11.2 L Hct 34.5 L MCV 88.0 MCH 28.6 MCHC 32.5 RDW 13.2 Plt Count 194 MPV 10.7 Immature Gran % (Auto) 0.2 Neut % (Auto) 49.5 Lymph % (Auto) 40.2 H [place] % (Auto) 7.8 Eos % (Auto) 1.9 Baso % (Auto) 0.4 Lymph # (Auto) 2.1 [place] # (Auto) 0.4 Eos # (Auto) 0.1 Baso # (Auto) 0.0 Abs Immat Gran (auto) 0.01 Absolute Neuts (auto) 2.6 Absolute Nucleated RBC 0.000 Nucleated RBC % (auto) 0.0 PT INR APTT Sodium 140 Potassium 3.9 Chloride 113 H Carbon Dioxide 19 L Anion Gap 12 BUN 13 Creatinine 0.77 Estim Creat Clear Calc 121.5 Estimated GFR > 60 Random Glucose 85 Calcium 8.7 Magnesium Total Bilirubin AST ALT Alkaline Phosphatase Troponin I High Sens Total Protein Albumin Beta HCG, Quant Urine Color Urine Appearance Urine pH Ur Specific [place] Urine Protein Urine Glucose (UA) Urine Ketones Urine Blood Urine Nitrite Ur Leukocyte Esterase COVID-19 ([facility]) COVID-19 Clin Com Imaging Radiologist's impression: Impressions Cervical Spine CT 05/21/23 15:39 IMPRESSION: Unremarkable examination. Fleischner guidelines were followed. Head CT 05/21/23 15:39 IMPRESSION: 1. No acute intracranial pathology. 2. Mild debris in the external auditory canals bilaterally could represent cerumen. Correlate with physical exam. Chest X-Ray 05/21/23 15:44 IMPRESSION: Normal chest x-ray. 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 Clinical story is consistent with vasovagal syncope. I have advised her to keep herself well hydrated and avoid heat as much as possible. She also is status post bariatric surgery and has lost significant weight. She is also breast-feeding. I think this combination along with being in the sun standing for 1 hour points toward vasovagal event. She also did not feel well afterwards which could point to word a recurrent event which is not unusual. In any case hydration and heat avoidance is the way to go forward. If blood pressure is low then nifedipine can be discontinued. PVCs are chronic and she is asymptomatic. Her echocardiography has not shown any LV dysfunction. She has mildly dilated right ventricle and left ventricular size is upper limit of normal. It is possible that she had some myopathy due to obesity which is improving. In any case she does not have significant LV dysfunction due to premature ventricular complexes to be concerned about sign ificant ventricular tachycardia or VFib. I think she likely had vasovagal syncope. She is also quite anxious and wants to go home as she has baby at home. I think she can be discharged and can follow up with us and can have further workup as outpatient. Thank you for allowing me to participate in the care of your patient. Please feel free to contact me if you have any questions. Time Spent With Patient Time: Total time managing care of this patient today ____ minutes. Procedures Date of Service Date of Service: 05/22/23
[2023-05-22 11:17] VITALS: BP 126/74; PULSE 74; RESP 20; TEMP 36.6; O2SAT 98
--- NOTE | 2023-05-22 11:26 | PM.DS ---
DS: Providers Provider Date of Service: 05/22/23 Date of admission: 05/21/23 17:04 Primary care physician: Berenice Rodriguez CNP Consults: 05/21/23 18:02 Consult to Cardiology Routine Consulting Provider: [facility] Cardiovascular Services Reason for consultation: bigeminy, trigeminy, syncope DS: Diagnosis Discharge Diagnosis (1) Syncope: Status: Acute (2) Bigeminy: Status: Acute DS: Summary Hospital Course Hospital Course: from initial hpi: 33 year old female with history htn, mood disorder, who is s/p gastric sleevectomy presented to the ED for evaluation of near syncope/syncope. Per the patient, yesterday she was doing more activity than normal, helping her friend get ready for her wedding, and then passed out for about 2 minutes. No head strike. When she came to, she was a little disoriented and sweaty. No seizure history or seizure like movements noted. Has had VASQUEZ in past, but responds to albuterol. No other sob, palpitations, or chest pain. Does report history of 2nd degree AV santi block in her son and niece and unspecified arrhythmia in her father and paternal aunts. On arrival VSS. Negative orthostatic vital signs. CBC unremarkable. Renal function and lytes largely unremarkable including normal magnesium of 2.0. Trop imdetectable. UA unremarkable. Urine Hcg negative. Negative COVID 19. CXR negative. Head CT negative for any acute intracranial abnormality.? CT of the cervical spine negative for any acute fracture, subluxation or dislocation. EKG shows NSR with frequency PVC's in bigeminy pattern, rate 85, no MILA or depression.? Case discussed with cardiology recommending observation and possible metoprolol.? However patient has had urticaria and possible anaphylaxis with labetalol. hospital course: patient was observed for syncope. orthostatics were negative. telemetry continued to show frequent PVCs, echo was unremarkable. was seen by cardiology who felt etiology likely vasovagal vs orthostatic, recommended hydration and outpatient follow up in 1-2 months. Time Spent with Patient Time attestation: Total time managing care of this patient today ____ minutes. Discharge coordination time: Greater than 30 minutes Quality: Safe Use of Opioids Does Pt have an Active Cancer Diagnosis on the Problem List?: No Quality: Stroke Does the patient have a stroke diagnosis?: No Physical Exam Vital Signs: Vital Signs: Last Vital Signs Temp 97.8 F 05/22/23 11:17 Pulse 74 05/22/23 11:17 Resp 20 05/22/23 11:17 BP 126/74 05/22/23 11:17 Pulse Ox 98 05/22/23 11:17 O2 Del Method Room Air 05/22/23 11:17 BMI result Body Mass Index 34.9 General: AO X 3, no acute distress Resp: CTA bilateral, no accessory muscles used CVS: S1,S2,RRR GI: soft, non tender, non distended Neuro: motor grossly intact, alert Psych: appropriate affect, appropriate insight DS: Data Data Completed and Pending Labs on day of discharge: Laboratory Results - last 24 hr 05/21/23 05/21/23 05/21/23 14:28 14:28 14:28 WBC 5.8 RBC 4.22 Hgb 11.9 L Hct 36.7 L MCV 87.0 MCH 28.2 MCHC 32.4 RDW 13.1 Plt Count 203 MPV 9.8 Immature Gran % (Auto) 0.2 Neut % (Auto) 50.3 Lymph % (Auto) 37.3 [place] % (Auto) 9.3 Eos % (Auto) 2.6 Baso % (Auto) 0.3 Lymph # (Auto) 2.2 [place] # (Auto) 0.5 Eos # (Auto) 0.2 Baso # (Auto) 0.0 Abs Immat Gran (auto) 0.01 Absolute Neuts (auto) 2.9 Absolute Nucleated RBC 0.000 Nucleated RBC % (auto) 0.0 PT 11.4 INR 0.9 APTT 34.8 Sodium 138 Potassium 3.9 Chloride 112 H Carbon Dioxide 19 L Anion Gap 11 L BUN 13 Creatinine 0.78 Estim Creat Clear Calc 116.1 Estimated GFR > 60 Random Glucose 99 Calcium 9.2 Magnesium 2.0 Total Bilirubin 0.3 AST 32 H ALT 12 Alkaline Phosphatase 62 Troponin I High Sens Total Protein 6.8 Albumin 3.6 Beta HCG, Quant < 2 Urine Color Urine Appearance Urine pH Ur Specific [place] Urine Protein Urine Glucose (UA) Urine Ketones Urine Blood Urine Nitrite Ur Leukocyte Esterase COVID-19 ([facility]ILIA) COVID-19 Clin Com 05/21/23 05/21/23 05/21/23 14:28 14:28 16:10 WBC RBC Hgb Hct MCV MCH MCHC RDW Plt Count MPV Immature Gran % (Auto) Neut % (Auto) Lymph % (Auto) [place] % (Auto) Eos % (Auto) Baso % (Auto) Lymph # (Auto) [place] # (Auto) Eos # (Auto) Baso # (Auto) Abs Immat Gran (auto) Absolute Neuts (auto) Absolute Nucleated RBC Nucleated RBC % (auto) PT INR APTT Sodium Potassium Chloride Carbon Dioxide Anion Gap BUN Creatinine Estim Creat Clear Calc Estimated GFR Random Glucose Calcium Magnesium Total Bilirubin AST ALT Alkaline Phosphatase Troponin I High Sens < 2.7 Total Protein Albumin Beta HCG, Quant Urine Color Yellow Urine Appearance Clear Urine pH 5.5 Ur Specific [place] 1.020 Urine Protein Negative Urine Glucose (UA) Negative Urine Ketones Negative Urine Blood Negative Urine Nitrite Negative Ur Leukocyte Esterase Negative COVID-19 (LILIA) Negative COVID-19 [email or web address] Com See Note 05/22/23 05/22/23 06:23 06:23 WBC 5.2 RBC 3.92 L Hgb 11.2 L Hct 34.5 L MCV 88.0 MCH 28.6 MCHC 32.5 RDW 13.2 Plt Count 194 MPV 10.7 Immature Gran % (Auto) 0.2 Neut % (Auto) 49.5 Lymph % (Auto) 40.2 H [place] % (Auto) 7.8 Eos % (Auto) 1.9 Baso % (Auto) 0.4 Lymph # (Auto) 2.1 [place] # (Auto) 0.4 Eos # (Auto) 0.1 Baso # (Auto) 0.0 Abs Immat Gran (auto) 0.01 Absolute Neuts (auto) 2.6 Absolute Nucleated RBC 0.000 Nucleated RBC % (auto) 0.0 PT INR APTT Sodium 140 Potassium 3.9 Chloride 113 H Carbon Dioxide 19 L Anion Gap 12 BUN 13 Creatinine 0.77 Estim Creat Clear Calc 121.5 Estimated GFR > 60 Random Glucose 85 Calcium 8.7 Magnesium Total Bilirubin AST ALT Alkaline Phosphatase Troponin I High Sens Total Protein Albumin Beta HCG, Quant Urine Color Urine Appearance Urine pH Ur Specific [place] Urine Protein Urine Glucose (UA) Urine Ketones Urine Blood Urine Nitrite Ur Leukocyte Esterase COVID-19 ([facility]ILIA) COVID-19 Clin Com Discharge Plan Discharge Anticipated Discharge Date/Time: 05/22/23 11:24 Patient Disposition: Home, Self-Care Discharge Diagnosis: syncope, bigeminy Referrals: Berenice Pacheco, PATRICE [Primary Care Provider] - 1 Week Discharge Medications: Continued multivitamin Tablet 1 tab PO DAILY hydroxyzine HCl 25 mg Tablet 25 mg PO TID PRN (Reason: Anxiety) albuterol sulfate 90 mcg/actuation Hfa Aerosol Inhaler 2 puff INHALATION Q4-6H PRN (Reason: Shortness Of Breath Or Wheezing) sertraline [Zoloft] 50 mg tablet 50 mg PO DAILY nifedipine 30 mg tablet extended release 30 mg PO DAILY Discharge Orders: Discharge Order (Routine); Ordered 05/22/23 Ordered By: Mamadou Pratt Diet: Advance to usual diet Activity on Discharge: As tolerated Stand Alone Forms: Patient Portal Discharge page, Work/School Release Care Plan Goals: avoid syncope Health Concerns: bigeminy Plan of Treatment: hydration, outpatient follow up in 1-2 months with cardiology Assessment: see above
--- NOTE | 2023-05-22 11:43 | MHC.CM.PN ---
PT MEDICALLY CLEARED FOR DC HOME SELF-CARE, PT TO ARRANGE TRANSPORT
== END 2023-05-22 14:42 | disposition home or self-care (01) ==
LOC: HO.ED 16:45 → HO.EDOVER 17:18 → HO.IMC 22:46
PROVIDERS: Physician Assistant Medical; Admitting Provider Physician Assistant; Emergency Provider Emergency Medicine; PCP Nurse Practitioner Family; Visit Provider Internal Medicine
DX: R55 Syncope and collapse (principal); I10 Essential (primary) hypertension; I49.8 Other specified cardiac arrhythmias; I49.3 Ventricular premature depolarization; R00.8 Other abnormalities of heart beat; R51.9 Headache, unspecified; Z20.822 Contact with and (suspected) exposure to COVID-19; Z79.899 Other long term (current) drug therapy; Z86.718 Personal history of other venous thrombosis and embolism; Z98.84 Bariatric surgery status
CPT/HCPCS: 36415; 70450; 71046; 72125; 80048; 80053; 81003; 83735; 84484; 84702; 85025; 85610; 85730; 87635; 93005; 93306; 96360; 96361; 96372; 99222; 99285; Q9957

== ENCOUNTER 2023-05-21 17:04 | Outpatient (BNV) | payer OTHER, SELFPAY | END 2023-05-22 07:00 | PROVIDERS: Admitting Provider Physician Assistant; Emergency Provider Emergency Medicine; PCP Nurse Practitioner Family; Visit Provider Internal Medicine Cardiovascular Disease | DX: I49.8 Other specified cardiac arrhythmias (principal); R55 Syncope and collapse | CPT/HCPCS: 93306 ==

== ENCOUNTER → 2023-05-21 17:04 | Outpatient (BNV) | payer OTHER, SELFPAY | PROVIDERS: Admitting Provider Physician Assistant; Emergency Provider Emergency Medicine; PCP Nurse Practitioner Family; Visit Provider Physician Assistant | DX: R55 Syncope and collapse (principal); I49.8 Other specified cardiac arrhythmias | CPT/HCPCS: 99222; 99239 ==

== ENCOUNTER → 2023-05-21 17:04 | Outpatient (BNV) | payer OTHER, SELFPAY | PROVIDERS: Admitting Provider Physician Assistant; Emergency Provider Emergency Medicine; PCP Nurse Practitioner Family; Visit Provider Internal Medicine Cardiovascular Disease | DX: R55 Syncope and collapse (principal); I49.8 Other specified cardiac arrhythmias; I49.3 Ventricular premature depolarization | CPT/HCPCS: 93010; 99222 ==

== ENCOUNTER 2023-05-23 14:50 | Outpatient (AMB) | payer OTHER, SELFPAY ==
--- NOTE | 2023-05-23 14:55 | A.OFFVIS_ITS ---
Intake Intake Visit Reasons: PO-R Th MCP RCL Rep v Recon. 04/27/23 AR recast Intake Note: Ms is a 33 year old female who presents today for a cast change due to it being wet. Patient reports having a fall on 05/20/23. Denies numbness and tingling. Allergies labetalol Allergy (Verified 05/23/23 15:02) Hives sunflower seed Allergy (Verified 05/23/23 15:02) Hives HPI PO-R Th MCP RCL Rep v Recon. 04/27/23 AR recast HPI Details Ms is a 33 year old right hand dominant woman who presents S/P right thumb MCP joint RCL repair, DOS: 04/27/23.?She presents today for a wound check and cast change. She reports falling on 05/20/23 due to feeling dizzy, She says her cast got wet but is unsure how this happened She says she is doing well overall. She denies any symptoms of infection. [facility] Medical History Gestational diabetes Heart murmur Hypertension PCOS (polycystic ovarian syndrome) Pre-eclampsia Surgical History Hx of section S/P gastric sleeve procedure Family History Mother Stroke Hypertension Father No problems noted. Brother No problems noted. Brother No problems noted. Sister No problems noted. Sister No problems noted. Son Asthma ADHD Heart murmur Son No problems noted. 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 Her pin had twisted and was sitting on her skin. I rotated the pin to be off of her skin She can make a fist and extend all her digits No significant swelling Sensation is intact Cap refill is brisk Psych Appearance: grossly normal Affect: normal affect Attitude: cooperative Assessment & Plan Assessment & Plan (1) Rupture of radial collateral ligament of right thumb: Code(s): S63.641A - Sprain of metacarpophalangeal joint of right thumb, initial encounter Plan Assessment & Plan: 1. 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 I discussed activity modifications, she is to lift nothing heavier than a cellphone for the next two weeks She was fitted for a new short arm thumb spica splint today, as her old one was wet, though no wetness at the pin site No evidence of infection She should be seen by OT immediately after her next follow-up appointment. We anticipate removal of the cast and K-wire at that time. She will have a custom thermoplastic MCP thumb splint that she will wear with daytime activities when out of the house for 3-4 additional weeks. She will follow up on 06/10/23. I anticipate K-wire removal at that appointment Scribed for Ashleigh Bishop MD by Bart Russell, medical authorization specialist, on 05/23/23 at 3:10 PM, EST. Coding Level of Care Code Global (68153) Diagnoses Rupture of radial collateral ligament of right thumb S63.641A
== END 2023-05-23 16:51 | disposition home or self-care (01) ==
PROVIDERS: PCP Nurse Practitioner Family; Visit Provider Orthopaedic Surgery
DX: S63.641A Sprain of metacarpophalangeal joint of right thumb, initial encounter (principal)
CPT/HCPCS: 99024

== ENCOUNTER → 2023-05-23 14:50 | Outpatient (BNVA) | payer OTHER, SELFPAY | PROVIDERS: PCP Nurse Practitioner Family; Visit Provider Orthopaedic Surgery ==

== ENCOUNTER 2023-06-07 14:06 | Outpatient (AMB) | payer OTHER, SELFPAY ==
--- NOTE | 2023-06-07 14:28 | MHC.OFFVIS ---
Intake Intake Visit Reasons: PO-R Th MCP RCL Rep v Recon. 04/27/23 AR Intake Note: Ms, 33 yr old female presents today for her p/o visit for her P/O right thumb MCP RCL recon. DOS 04/27/23. Cast removed in office. ? Allergies labetalol Allergy (Verified 06/07/23 14:29) Hives sunflower seed Allergy (Verified 06/07/23 14:29) Hives HPI PO-R Th MCP RCL Rep v Recon. 04/27/23 AR HPI Details Ms is a 33 year old right hand dominant woman who presents S/P right thumb MCP joint RCL repair, DOS: 04/27/23.?She is scheduled to attend OT hand therapy on 06/12/23 where she will receive a custom thumb splint to wear. She says she is doing well today. [facility] Medical History Gestational diabetes Heart murmur Hypertension PCOS (polycystic ovarian syndrome) Pre-eclampsia Surgical History Hx of section S/P gastric sleeve procedure Family History Mother Stroke Hypertension Father No problems noted. Brother No problems noted. Brother No problems noted. Sister No problems noted. Sister No problems noted. Son Asthma ADHD Heart murmur Son No problems noted. 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 K-wire removed today in clinic, which she tolerated well She can make a fist and extend all her digits No significant swelling Sensation is intact Cap refill is brisk Psych Appearance: grossly normal Affect: normal affect Attitude: cooperative Assessment & Plan Assessment & Plan (1) Rupture of radial collateral ligament of right thumb: Code(s): S63.641A - Sprain of metacarpophalangeal joint of right thumb, initial encounter Plan Assessment & Plan: 1. 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 She can remove this to shower and work on ROM exercises She will work on gentle thumb ROM exercises out of her splint at home She is scheduled to attend OT hand therapy on 06/12/23 to work on thumb ROM exercises and to have a custom thermoplastic MCP thumb splint that will protect the thumb MCP joint radial collateral ligament but allow for IP joint and wrist range of motion. She will wear with daytime activities when out of the house for the next 3-4 weeks. She will follow up in 4 weeks for a ROM check Scribed for Ashleigh Bishop MD by Bart Russell, internist medical doctor md, on 06/07/23 at 3:50 PM, EST. Coding Level of Care Code Global (16198) Diagnoses Rupture of radial collateral ligament of right thumb S63.641A
== END 2023-06-07 16:11 | disposition home or self-care (01) ==
PROVIDERS: PCP Nurse Practitioner Family; Visit Provider Orthopaedic Surgery
DX: S63.641A Sprain of metacarpophalangeal joint of right thumb, initial encounter (principal)
CPT/HCPCS: 99024

== ENCOUNTER → 2023-06-07 14:06 | Outpatient (BNVA) | payer OTHER, SELFPAY | PROVIDERS: PCP Nurse Practitioner Family; Visit Provider Orthopaedic Surgery ==

== ENCOUNTER 2023-06-30 10:25 | Outpatient (AMB) | payer OTHER, SELFPAY ==
--- NOTE | 2023-06-30 10:28 | MHC.AMNUTRGE ---
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 still . She is here with her and their child. She feels that her life and environment is very chaotic lately. She reports she has no structured eating routine, she does like to eat breakfast. Her is a concert singer, but he has struggled with his weight in the past and is currently experiencing weight regain. He does not have healthy is eating habits, does not always cook healthy bariatric friendly meals. Today she is asking for help creating a healthy meal plan which will also promote weight loss. She is also requesting anti obesity medication. Dietary counseling reduction Who buys your food self and spouse Who prepares/cooks your food self and spouse Diagnosis Nutrition problem #1 overweight/obesity As related to (etiology) #1 excess energy intake and physical inactivity As evidenced by (sign/symptom) #1 high BMI Monitoring/Goals Nutrition problem monitoring total energy intake, level of knowledge/skill, total PRO intake, total CHO intake, weight and oral fluids Outcome progress progressing Learning/Education Readiness to learn excellent Stages of change action Educational materials provided Yes Most Recent Diabetes Results: Creatinine 0.77 mg/dL (0.5-1.4) 05/22/23 Blood Urea Nitrogen 13 mg/dL (9-16) 05/22/23 Sodium 140 mmol/L (135-145) 05/22/23 Potassium 3.9 mmol/L (3.3-5.1) 05/22/23 Chloride 113 mmol/L (96-108) H 05/22/23 Carbon Dioxide 19 mmol/L (22-29) L 05/22/23 Calcium 8.7 mg/dL (8.4-10.2) 05/22/23 AST 32 U/L (5-31) H 05/21/23 ALT 12 U/L (0-31) 05/21/23 Total Protein 6.8 g/dL (6.5-8.0) 05/21/23 Albumin 3.6 g/dL (3.5-5.0) 05/21/23 [facility] Medical History Gestational diabetes Heart murmur Hypertension PCOS (polycystic ovarian syndrome) Pre-eclampsia Surgical History Hx of section S/P gastric sleeve procedure Family History Mother Stroke Hypertension Father No problems noted. Brother No problems noted. Brother No problems noted. Sister No problems noted. Sister No problems noted. Son Asthma ADHD Heart murmur Son No problems noted. 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 protein goal 80-100g per day nad 20-30g protein per meal. Have a discussion with her partner about how he can support her. Recommended she discuss anti obesity medication with her primary care doctor. She will follow-up with me in 1-2 months. Coding Level of Care Code Nutr Indiv Subseq (64281) Diagnoses Obesity (BMI 30-39.9) E66.9 Time Spent (min) 45
== END 2023-06-30 11:31 | disposition home or self-care (01) ==
PROVIDERS: PCP Nurse Practitioner Family; Visit Provider Dietitian, Registered
DX: E66.9 Obesity, unspecified (principal)

== ENCOUNTER → 2023-06-30 10:25 | Outpatient (BNVA) | payer OTHER, SELFPAY | PROVIDERS: PCP Nurse Practitioner Family; Visit Provider Dietitian, Registered | DX: E66.9 Obesity, unspecified (principal) | CPT/HCPCS: 97803 ==

== ENCOUNTER 2023-07-28 13:30 | Outpatient (RCR) | payer OTHER, SELFPAY ==
--- NOTE | 2023-06-12 16:26 | MHC.OT.EP ---
[address] [phone] Occupational Therapy Plan of Care Patient Name: Ms Bradshaw Date of Evaluation: 06/12/23 Diagnosis: Right thumb MCP joint RCL repair Pain Location: 0-5 right thumb with light activity Pain Score: 5 Pain Scale Used: Numeric (0 - 10) Aggravating Factors: Light hand exercise and light use of right hand Alleviating Factors: Avoiding right hand with activities Assessment: Pt is 6 wks, 4 days s/p right thumb MCP jt RCL repair due to a fall. Pt beginning very gentle ROM with moderately high pain Surgical scar and pin sites , pink , sensation WNL Wrist and thumb ROM limited due to pain Pt previously active with homemaking, playing guitar and piano and sports with her family , now very limited due to thumb pain and need for continued protection of surgical repair Pt will benefit from OT for a custom hand based thumb spica with the IP jt free , removing for exercise and hygiene and begin ROM and light activity Frequency and Duration: The patient will be seen 2 x wk x 6 wks Short Term Goals: Indep with HEP for thumb ROM and light dexterity activities respecting precautions (avoiding directional torque) Wrist ext to >45 deg Thumb IP flexion to > 45 deg Functional Dexterity test with moderately functional Tolerate light guitar and piano playing Fci Goals: Wrist ext to 60 deg Thumb IP jt flex to 60 deg Demo proper technique with pinch strengthening Dexterity to WNL Wean from hand based thumb spica, use with sports activities or taping Indep in self management of RCL repair Quick DASH to < 15 pts Use of right hand with daily activities Treatment Plan: Therapeutic Exercise Therapeutic Activity Home Exercise Program Splinting Patient Education ADL Training Paraffin Fluidotherapy MHP Electronically Signed By: Brianna Cordova OT CHT CLT Please Sign and return to therapist. Thank you once again for your referral.
--- NOTE | 2023-07-28 14:57 | MHC.OT.DC ---
[address] [phone] F: [phone] Occupational Therapy Discharge Note Patient Name: Ms Bradshaw Provider: Ashleigh Bishop Diagnosis: Right thumb MCP joint RCL repair Date of Surgery: 04/27/23 Date of Evaluation: 06/12/23 Date of Discharge: 07/28/23 Treatments to Date: 5 Cancellations to Date: 2 No Shows to Date: 3 Discharge Status: Achieved Goals Improved Function Independent with HEP Discharge Summary: 3 mo s/p right RCL repair. Pt reports improving pain and hand function. ROM and hand dexterity WNL. Director [employer] and pinch strength improving Reports light -moderate use with daily activities including playing the piano and childcare. Mild thenar muscle atrophy noted. Pt is motivated and independent with her HEP for right hand strengthening AROM WNL [employer] R 40 lb L 48 lb Lat pinch R 11 lb L 15 lb 3 jaw pinch R 10 lb L 14 lb Functional Dexteriy Test Normal Electronically Signed By: Brianna Cordova OT CHT CLT Reviewed/agree with student documentation: Therapist: Please Sign and return to therapist, thank you for your referral.
== END 2023-07-28 14:58 | disposition home or self-care (01) ==
LOC: HO.OT 13:30
PROVIDERS: PCP Nurse Practitioner Family; Visit Provider Orthopaedic Surgery
DX: S63.641D Sprain of metacarpophalangeal joint of right thumb, subsequent encounter (principal)
CPT/HCPCS: 29130; 97110; 97165; 97530; 97760

== ENCOUNTER 2023-09-19 11:07 | Outpatient (AMB) | payer OTHER, SELFPAY ==
--- NOTE | 2023-09-19 11:20 | A.OFFVIS_ITS ---
Intake Vital Signs 09/19/23 11:35 Height 5 ft 6 in Weight 213 lb BMI 34.4 Intake Visit Reasons: O/V -R Th MCP RCL Rep v Recon. 04/27/23 AR Intake Note: , 33 yr old female presents today for her p/o visit for her right thumb MCP RCL recon. DOS 04/27/23. States she has tightness by her thumb but is doing well over all. Allergies labetalol Allergy (Verified 06/07/23 14:29) Hives sunflower seed Allergy (Verified 06/07/23 14:29) Hives HPI O/V -R Th MCP RCL Rep v Recon. 04/27/23 AR HPI Details Ms is a 33 year old right hand dominant woman who presents S/P right thumb MCP joint RCL repair, DOS: 04/27/23.? She says she has some tightness in her thumb, but she is doing well overall and says her thumb feels better than before surgery. She says she has some occasional burning and throbbing pain in her thumb at times, mostly with overuse of her hand or after working a 12 a 13 hour shift. She has discontinued her brace several weeks ago. She is very active using her hands, including playing piano, drawing, and boxing for sport. 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 FORMERLY [facility], [facility] Medical History Gestational diabetes Heart murmur Hypertension PCOS (polycystic ovarian syndrome) Pre-eclampsia Surgical History Hx of section S/P gastric sleeve procedure Family History Mother Stroke Hypertension Father No problems noted. Brother No problems noted. Brother No problems noted. Sister No problems noted. Sister No problems noted. Son Asthma ADHD Heart murmur Son No problems noted. 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 She can make a fist and extend all of her digits. She has good active flexion and extension of the right thumb and can touch all the way down to the base of the small finger. In comparing the right thumb with the left thumb she does have some increased laxity at the radial collateral ligament, but she does have a good endpoint now. Very good circumduction and use without any pain. When she brings her right thumb into adduction the radial aspect of the MCP joint is more prominent. And to her this looks abnormal. It is actually not really visible is prominent unless she is doing that action. The MCP joint is definitely more stable than before hand and while there is some increased laxity, it is much better than before her surgery. Psych Appearance: grossly normal Affect: normal affect Attitude: cooperative Assessment & Plan Assessment & Plan (1) Rupture of radial collateral ligament of right thumb: Code(s): S63.641A - Sprain of metacarpophalangeal joint of right thumb, initial encounter Plan Assessment & Plan: 1. 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 She was just hoping that that right thumb nail and then not look any different than her opposite thumb, and that she would no longer have any discomfort at any time. I talked about the fact that she did have an injury to that thumb, that the surgery helped improve the stability, but it does not change the fact that she did have an injury to the thumb and it may not feel normal. I cautioned her about activities that are more prone to injury of the hand like boxing and her dirt bike riding. In the end she will have to make choices about the things that she likes to do. She can do them that they may come with some risk. She can return to normal daily activities & use of her hand. She is happy with the plan. She can follow up prn Scribed for Ashleigh Bishop MD by Bart Russell, bilingual medical assistant, on 09/19/23 at 11:45 AM, EST. Coding Level of Care Code Est Pt Level 3 (33531) Diagnoses Rupture of radial collateral ligament of right thumb S63.641A
[2023-09-19 11:35] VITALS: BMI 34.4
== END 2023-09-19 12:11 | disposition home or self-care (01) ==
PROVIDERS: PCP Nurse Practitioner Family; Visit Provider Orthopaedic Surgery
DX: S63.641A Sprain of metacarpophalangeal joint of right thumb, initial encounter (principal)
CPT/HCPCS: 99213

== ENCOUNTER → 2023-09-19 11:07 | Outpatient (BNVA) | payer OTHER, SELFPAY | PROVIDERS: PCP Nurse Practitioner Family; Visit Provider Orthopaedic Surgery | DX: S63.641D Sprain of metacarpophalangeal joint of right thumb, subsequent encounter (principal) | CPT/HCPCS: 99212 ==

== ENCOUNTER 2023-10-06 08:00 | Emergency (ER) | payer OTHER, SELFPAY ==
[2023-10-06 08:04] VITALS: BP 143/78; PULSE 62; RESP 18; TEMP 36.8; O2SAT 100; BMI 37.3
--- NOTE | 2023-10-06 08:47 | ED.FEMALEGU ---
HPI - Female Genitourinary General Chief complaint: Urogenital-Female Stated complaint: prolapse ? Time Seen by Provider: 10/06/23 08:17 History of Present Illness HPI Narrative: Patient is a 33-year-old female presents today with having rectal pain. The pain is sharp. It has been ongoing for the last 3 days. Related Data Home Medications Medication Instructions Recorded Confirmed sertraline 50 mg tablet (Zoloft) 50 mg PO DAILY 01/14/22 05/21/23 nifedipine 30 mg tablet,extended 30 mg PO DAILY 08/10/22 05/21/23 release albuterol sulfate 90 mcg/actuation 2 puff inhalation Q4-6H PRN 05/21/23 05/21/23 aerosol inhaler Shortness Of Breath Or Wheezing hydroxyzine HCl 25 mg tablet 25 mg PO TID PRN Anxiety 05/21/23 05/21/23 multivitamin 1 tab PO DAILY 05/21/23 05/21/23 Previous Rx's Medication Instructions Recorded amoxicillin 875 mg-potassium 1 tab PO BID rectal pain 7 days 10/06/23 clavulanate 125 mg tablet #14 tabs Allergies Allergy/AdvReac Type Severity Reaction Status Date / Time labetalol Allergy Hives Verified 06/07/23 14:29 sunflower seed Allergy Hives Verified 06/07/23 14:29 Review of Systems Review of Systems: No fever no chills no diaphoresis Yes all other systems are reviewed and are negative [facility] Past Medical History Attestation statement: The following information was validated with the patient. Medical History (Updated 10/06/23 @ 08:51 by Rosendo Rodriguez MD) Perianal abscess Heart murmur Gestational diabetes Pre-eclampsia Hypertension PCOS (polycystic ovarian syndrome) Surgical History Hx of section S/P gastric sleeve procedure Family History Family History Mother Stroke Hypertension Father No problems noted. Brother No problems noted. Brother No problems noted. Sister No problems noted. Sister No problems noted. Son Asthma ADHD Heart murmur Son No problems noted. 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 Oriented X3. No acute distress. Eyes: Pupils equal, round and reactive to light. ENT: Pharynx normal. Neck: Normal inspection. Neck supple. No lymph nodes noted. No crepitus CVS: Normal heart rate and rhythm. Pulses normal. Normal S1 and S2 Respiratory: No respiratory distress. Breath sounds normal. No Wheezing. No rales Abdomen: Soft and nontender. No rigidity. No distention. good BS x4 Skin: Skin warm and dry. Normal skin color. Normal skin turgor. Rectal exam done with nurse Fred present. There is a perirectal abscess noted. That is actually draining purulent material. Extremities: No lower extremity edema. Neurovascular intact to all extremities. No Lacerations. No Rash Neuro: Oriented X 3. No motor deficit. No sensory deficit. Moving all extermities. No slurred speech Medical Decision Making Medical Decision Making MDM Narrative: Positive draining perianal abscess. The case was discussed with surgery. Surgery came down evaluate patient agree with plan of warm soaks antibiotics close follow-up with Dr. Nagy is on an outpatient basis. Differential Diagnosis Perirectal abscess, anal abscess Admission/Observation Consideration of admission/observation: Escalation of care including admission/observation considered Consult Healthcare Provider Management of the patient was discussed with: [employer] Surgery External Record Review External record reviewed: Office record Previous bariatric surgery note reviewed Prescription Management I considered prescription management with: Antiviral (Not needed) Chronic Conditions Previous history gastric sleeve surgery Discharge Plan Discharge Clinical Impression: Abscess of rectum Patient Disposition: Home, Self-Care Instructions: Rectal Abscess (ED) Additional Instructions: Warm soak close follow-up with surgery on an outpatient basis Prescriptions: New amoxicillin-pot clavulanate 875-125 mg tablet 1 tab PO BID 7 Days Qty: 14 0RF No Action multivitamin Tablet 1 tab PO DAILY hydroxyzine HCl 25 mg Tablet 25 mg PO TID PRN (Reason: Anxiety) albuterol sulfate 90 mcg/actuation Hfa Aerosol Inhaler 2 puff INHALATION Q4-6H PRN (Reason: Shortness Of Breath Or Wheezing) sertraline [Zoloft] 50 mg tablet 50 mg PO DAILY nifedipine 30 mg tablet extended release 30 mg PO DAILY
--- NOTE | 2023-10-06 08:48 | PC.NURSE ---
Surgery at bedside for consult.
--- NOTE | 2023-10-06 08:49 | P.CONGS_ITS ---
History of Present Illness Consult details Consult date: 10/06/23 Narrative: 33-year-old female referred for a perianal abscess. She says that she noted some in her anus about 2 days ago. She did not really feel any swelling until last night. Because of the persistence of pain, she came to the emergency room this morning. She says she noted significant amounts of drainage early this morning. She does state that the pain seems to have improved with drainage. She denies being a diabetic. She denies any fever or chills. Review of Systems Constitutional: Constitutional: Denies chills and Denies fever(s) Cardiovascular: Cardiovascular: Denies chest pain, Denies dyspnea and Denies dyspnea on exertion Respiratory: Respiratory: Denies cough, Denies dyspnea and Denies dyspnea on exertion Gastrointestinal: Gastrointestinal: Denies hematochezia and Denies change in bowel habits Genitourinary: Genitourinary: Denies hematuria Musculoskeletal: Musculoskeletal: Denies back pain and Denies limited range of motion Neurologic: Denies focal weakness and Denies convulsions Psychiatric: Psychiatric: Denies depression and Denies mood swings [facility] Past Medical History Medical History (Updated 10/07/23 @ 00:02 by Lore Tuttle) Perianal abscess Heart murmur Gestational diabetes Pre-eclampsia Hypertension PCOS (polycystic ovarian syndrome) Family History Family History Mother Stroke Hypertension Father No problems noted. Brother No problems noted. Brother No problems noted. Sister No problems noted. Sister No problems noted. Son Asthma ADHD Heart murmur Son No problems noted. 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 Meds Allergies Allergy/AdvReac Type Severity Reaction Status Date / Time labetalol Allergy Hives Verified 06/07/23 14:29 sunflower seed Allergy Hives Verified 06/07/23 14:29 Home Medications Medication Instructions Recorded Confirmed Last Taken Type sertraline 50 mg tablet (Zoloft) 50 mg PO DAILY 01/14/22 05/21/23 04/27/23 History nifedipine 30 mg tablet,extended 30 mg PO DAILY 08/10/22 05/21/23 04/27/23 History release albuterol sulfate 90 mcg/actuation 2 puff inhalation Q4-6H PRN 05/21/23 05/21/23 Unknown History aerosol inhaler Shortness Of Breath Or Wheezing hydroxyzine HCl 25 mg tablet 25 mg PO TID PRN Anxiety 05/21/23 05/21/23 Unknown History multivitamin 1 tab PO DAILY 05/21/23 05/21/23 Unknown History Physical Exam Vital Signs: Vital Signs: Last Vital Signs Temp 98.3 F 10/06/23 08:04 Pulse 62 10/06/23 08:04 Resp 18 10/06/23 08:04 BP 143/78 H 10/06/23 08:04 Pulse Ox 100 10/06/23 08:04 O2 Del Method Room Air 10/06/23 08:04 BMI result Body Mass Index 37.3 Const: Other: Appears well morbidly obese General: comfortable and no acute distress Orientation/consciousness: patient oriented x3 Neck: Neck: Yes no lymphadenopathy Resp: Auscultation: clear to auscultation bilaterally Cardio: Rhythm: regular rhythm GI: Other: Rectal exam shows significant drainage in the anus, induration appearing to be on the right side of the perianal area, sinus not obvious because of her obesity Palpation (GI): Soft to palpation, nontender and no guarding Neuro: General: patient oriented x3 Results Labs Labs: All other labs normal. Assessment and Plan (1) Perianal abscess: Status: Acute 33-year-old female morbid obesity, with a perianal abscess. This has started to drain spontaneously. She has had large amount of drainage from this morning. She does state that there is some subjective improvement of her pain level with drainage She looks well at this time. With the spontaneous drainage, I told her that we will not have to do an I and D at this time. I have instructed her on massaging the area to promote drainage. Furthermore, she has to do hot Sitz baths to help with the swelling I will see her in the office next week to re-evaluate. She may have a fistula as well so if she does then she will benefit from an exam under anesthesia down the line She is comfortable with the plan. I have discussed the above with the emergency room staff. Procedures Date of Service Date of Service: 10/12/23
--- NOTE | 2023-10-06 08:50 | PC.NURSE ---
Pt is a&ox4 coming in for rectal pain/bleeding. Pt reports this starting x2days ago. skin pwd. pt denies all other symptoms.
== END 2023-10-06 09:28 | disposition home or self-care (01) ==
PROVIDERS: Emergency Provider Emergency Medicine Emergency Medical Services; PCP Internal Medicine
DX: K61.1 Rectal abscess (principal); Z98.84 Bariatric surgery status; Z79.899 Other long term (current) drug therapy
CPT/HCPCS: 87070; 87077; 87186; 87205; 99284

== ENCOUNTER → 2023-10-06 08:25 | Outpatient (BNV) | payer OTHER, SELFPAY | PROVIDERS: Emergency Provider Emergency Medicine Emergency Medical Services; PCP Internal Medicine; Visit Provider Surgery | DX: K61.0 Anal abscess (principal) | CPT/HCPCS: 99283 ==

== ENCOUNTER 2024-01-18 19:13 | Emergency (ER) | payer OTHER, SELFPAY ==
--- NOTE | ~2024-01-18 | XR_ITS ---
EXAMINATION: Left elbow, left humerus and bilateral shoulder. CLINICAL INDICATION: Fall. Pain. COMPARISON: Chest 05/21/2023 TECHNIQUE: Left elbow 4 views. Left humerus 2 views. Left shoulder 3 views. Right shoulder 2 views. FINDINGS: Right shoulder: There is glenohumeral and AC joint space is intact. There is no visible acute fracture, dislocation or subluxation seen. The soft tissues are normal. Left shoulder: The glenohumeral and AC joint is normal. The soft tissues are normal. No visible acute fracture, dislocation or subluxation seen. The soft tissues are normal. Left humerus: There is no visible fracture or bony abnormality. The bony cortex and the soft tissues are normal. Left elbow: The left elbow joint space is normal. There is no joint effusion. No acute fracture, dislocation, bony erosive changes or soft tissue swelling seen. XR/XR humerus LT IMPRESSION: 1. Unremarkable right shoulder. 2. Unremarkable left shoulder. 3. Unremarkable left humerus. 4. Unremarkable left elbow exam.
--- NOTE | ~2024-01-18 | XR_ITS ---
EXAMINATION: Left elbow, left humerus and bilateral shoulder. CLINICAL INDICATION: Fall. Pain. COMPARISON: Chest 05/21/2023 TECHNIQUE: Left elbow 4 views. Left humerus 2 views. Left shoulder 3 views. Right shoulder 2 views. FINDINGS: Right shoulder: There is glenohumeral and AC joint space is intact. There is no visible acute fracture, dislocation or subluxation seen. The soft tissues are normal. Left shoulder: The glenohumeral and AC joint is normal. The soft tissues are normal. No visible acute fracture, dislocation or subluxation seen. The soft tissues are normal. Left humerus: There is no visible fracture or bony abnormality. The bony cortex and the soft tissues are normal. Left elbow: The left elbow joint space is normal. There is no joint effusion. No acute fracture, dislocation, bony erosive changes or soft tissue swelling seen. XR/XR elbow LT min 3V IMPRESSION: 1. Unremarkable right shoulder. 2. Unremarkable left shoulder. 3. Unremarkable left humerus. 4. Unremarkable left elbow exam.
--- NOTE | ~2024-01-18 | XR_ITS ---
EXAMINATION: Left elbow, left humerus and bilateral shoulder. CLINICAL INDICATION: Fall. Pain. COMPARISON: Chest 05/21/2023 TECHNIQUE: Left elbow 4 views. Left humerus 2 views. Left shoulder 3 views. Right shoulder 2 views. FINDINGS: Right shoulder: There is glenohumeral and AC joint space is intact. There is no visible acute fracture, dislocation or subluxation seen. The soft tissues are normal. Left shoulder: The glenohumeral and AC joint is normal. The soft tissues are normal. No visible acute fracture, dislocation or subluxation seen. The soft tissues are normal. Left humerus: There is no visible fracture or bony abnormality. The bony cortex and the soft tissues are normal. Left elbow: The left elbow joint space is normal. There is no joint effusion. No acute fracture, dislocation, bony erosive changes or soft tissue swelling seen. XR/XR shoulder RT min 2V IMPRESSION: 1. Unremarkable right shoulder. 2. Unremarkable left shoulder. 3. Unremarkable left humerus. 4. Unremarkable left elbow exam.
--- NOTE | ~2024-01-18 | XR_ITS ---
EXAMINATION: Left elbow, left humerus and bilateral shoulder. CLINICAL INDICATION: Fall. Pain. COMPARISON: Chest 05/21/2023 TECHNIQUE: Left elbow 4 views. Left humerus 2 views. Left shoulder 3 views. Right shoulder 2 views. FINDINGS: Right shoulder: There is glenohumeral and AC joint space is intact. There is no visible acute fracture, dislocation or subluxation seen. The soft tissues are normal. Left shoulder: The glenohumeral and AC joint is normal. The soft tissues are normal. No visible acute fracture, dislocation or subluxation seen. The soft tissues are normal. Left humerus: There is no visible fracture or bony abnormality. The bony cortex and the soft tissues are normal. Left elbow: The left elbow joint space is normal. There is no joint effusion. No acute fracture, dislocation, bony erosive changes or soft tissue swelling seen. XR/XR shoulder LT min 2V IMPRESSION: 1. Unremarkable right shoulder. 2. Unremarkable left shoulder. 3. Unremarkable left humerus. 4. Unremarkable left elbow exam.
[2024-01-18 19:16] VITALS: BP 180/107; PULSE 84; RESP 18; TEMP 36.9; O2SAT 100; BMI 37.0
--- NOTE | 2024-01-18 19:16 | ED_ITS ---
HPI - Extremity Injury (Upper) General Chief Complaint: Fall Stated Complaint: left shoulder pain fell4/4 Time Seen by Provider: 01/18/24 20:12 Source: patient Mode of arrival: ambulatory Limitations: no limitations History of Present Illness HPI narrative: Patient comes to the emergency room complaining of left shoulder, upper arm and elbow pain. Patient states that 4 days ago patient fell in the shower, yester day patient fell as she slipped on snow. Patient states that she landed on the same side of her shoulder/arm. Patient denies hitting her head or losing consciousness, patient is not on blood thinners. Patient states that she was recently had a surgery for torn ligaments in her right hand and therefore prefer to fall on the left side of her body to protect her hand the right. Patient did not re-injure the right hand. Related Data Home Medications ?Medication ?Instructions ?Recorded ?Confirmed sertraline 50 mg tablet (Zoloft) 50 mg PO DAILY 01/14/22 05/21/23 nifedipine 30 mg tablet,extended 30 mg PO DAILY 08/10/22 05/21/23 release albuterol sulfate 90 mcg/actuation 2 puff inhalation Q4-6H PRN 05/21/23 05/21/23 aerosol inhaler Shortness Of Breath Or Wheezing hydroxyzine HCl 25 mg tablet 25 mg PO TID PRN Anxiety 05/21/23 05/21/23 multivitamin 1 tab PO DAILY 05/21/23 05/21/23 Previous Rx's ?Medication ?Instructions ?Recorded amoxicillin 875 mg-potassium 1 tab PO BID rectal pain 7 days 10/06/23 clavulanate 125 mg tablet #14 tabs acetaminophen 500 mg tablet 500 mg PO QID PRN pain #20 tabs 01/18/24 cyclobenzaprine 5 mg tablet 5 mg PO TID PRN muscle spasm #7 01/18/24 tabs Allergies Allergy/AdvReac Type Severity Reaction Status Date / Time labetalol Allergy Hives Verified 01/18/24 19:19 sunflower seed Allergy Hives Verified 01/18/24 19:19 Review of Systems Review of Systems: Constitutional : No Weight loss, No Fever, No Chills, No Night Sweats, No Fatigue, No Malaise ENT/Mouth : No Hearing loss, No Ear Pain, No Nasal Congestion, No Sinus Pain, No Hoarseness, No sore throat, No Rhinorrhea, No Swallowing Difficulty Eyes: No Eye Pain, No Swelling, No Redness, No Foreign Body, No Discharge, No Vision Changes Cardiovascular : No Chest Pain, No SOB, No Dyspnea on Exertion, No Orthopnea, No Edema, No Palpitations Respiratory : No Cough, No Sputum, No Wheezing, No Smoke Exposure, No Dyspnea Gastrointestinal : No Nausea, No Vomiting, No Diarrhea, No Constipation, No abdominal Pain, No Hematochezia, No Melena Genitourinary : no irregular bleeding, No Dysuria, No Urinary Frequency, No Hematuria, No Urinary Incontinence, No Urgency, No Flank Pain, No Urinary Flow Changes, No Hesitancy Musculoskeletal : Complaining of left shoulder pain, left upper arm and elbow pain, No Myalgias, No Joint Swelling Skin : No Skin Lesions, No rash Neuro : No Weakness, No Numbness, No Paresthesias, No Loss of Consciousness, No Dizziness, No Headache Psych : No Anxiety/Panic, No Depression, No SI/HI/AH/VH, No Social Issues, Heme/Lymph: No Bruising, No Bleeding,No Lymphadenopathy Endocrine : No Polyuria, No Polydipsia, No Temperature Intolerance [facility] Past Medical History Medical History Perianal abscess Heart murmur Gestational diabetes Pre-eclampsia Hypertension PCOS (polycystic ovarian syndrome) Surgical History Hx of section S/P gastric sleeve procedure Family History Family History Mother Stroke Hypertension Father No problems noted. Brother No problems noted. Brother No problems noted. Sister No problems noted. Sister No problems noted. Son Asthma ADHD Heart murmur Son No problems noted. 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 Oriented X3. No acute distress. Eyes: Pupils equal, round and reactive to light. ENT: Pharynx normal. Neck: Normal inspection. Neck supple. No lymph nodes noted. No crepitus CVS: Normal heart rate and rhythm. Pulses normal. Normal S1 and S2 Respiratory: No respiratory distress. Breath sounds normal. No Wheezing. No rales Abdomen: Soft and nontender. No rigidity. No distention. Skin: Skin warm and dry. Normal skin color. Normal skin turgor. Extremities: No lower extremity edema. No Lacerations. No Rash. Patient able to flex and extend the wrist, elbow, abduct the shoulder. No deformity or ecchymosis Neuro: Oriented X 3. No motor deficit. No sensory deficit. Moving all extremities. No slurred speech. CN 2 through 12 grossly intact Psych: calm, cooperative, normal affect Course Course Course Narrative: RME:?33 yo female here for eval of left shoulder pain s/p mechanical fall x2. admits to slipping and falling in the shower on monday (4 days ago), landing on her left shoulder. denies head strike or loc. she was not evaluated at the time of fall. She reports slipping on ice and falling on her left shoulder again today. denies head strike or loc. no thinners. denies numbness/tingling/weakness to LUE. 2+ radial pulses to LUE. limited rom of left shoulder, no obvious deformity. imaging ordered. Full HPI, ROS and PE to be performed by the primary ED provider. Medications Administered Discontinued Medications Generic Name Dose Route Start Last Admin Trade Name Freq PRN Reason Stop Dose Admin Acetaminophen 975 mg 01/18/24 20:45 01/18/24 20:54 Acetaminophen 325 Mg Tablet PO 01/18/24 20:46 975 mg ONCE ONE Administration Medical Decision Making Medical Decision Making MDM Narrative: -patient offered p.o. acetaminophen. Patient declined Toradol as patient has history of gastric bypass. -patient also declined narcotics because patient is -my interpretation of x-rays of the elbow humerus and shoulder: No obvious abnormality, normal alignment Differential Diagnosis Differential Diagnoses: The differential diagnosis associated with the presentation includes (Arm contusion, dislocation, fracture) Independent Interpretation I performed an independent interpretation of an: Plain X-Ray Radiology Impression Discussion of test interpretation with radiology: I have reviewed the radiologist's reading. Radiologist Impression: IMPRESSION: 1. Unremarkable right shoulder. 2. Unremarkable left shoulder. 3. Unremarkable left humerus. 4. Unremarkable left elbow exam. Critical Care Time Critical Care Time Critical Care Time: No Discharge Plan Discharge Clinical Impression: Arm contusion, Fall Patient Disposition: Home, Self-Care Instructions: Contusion in Adults (ED) Additional Instructions: Please pump and dump the breast milk while you are taking cyclobenzaprine. Please follow-up with your primary care physician tomorrow. If you have any worsening or new symptoms, please return to the emergency room or call 911 Prescriptions: New acetaminophen 500 mg tablet 500 mg PO QID PRN (Reason: pain) Qty: 20 0RF cyclobenzaprine 5 mg tablet 5 mg PO TID PRN (Reason: muscle spasm) Qty: 7 0RF No Action multivitamin Tablet 1 tab PO DAILY hydroxyzine HCl 25 mg Tablet 25 mg PO TID PRN (Reason: Anxiety) albuterol sulfate 90 mcg/actuation Hfa Aerosol Inhaler 2 puff INHALATION Q4-6H PRN (Reason: Shortness Of Breath Or Wheezing) amoxicillin-pot clavulanate 875-125 mg tablet 1 tab PO BID 7 Days Qty: 14 0RF sertraline [Zoloft] 50 mg tablet 50 mg PO DAILY nifedipine 30 mg tablet extended release 30 mg PO DAILY Print Language: Vietnamese
[2024-01-18] MEDS: Acetaminophen 325 MG TABLET 975 MG PO (20:54)
[2024-01-18 21:17] LABS: UPreg QC Valid YES; Urine Pregnancy NEGATIVE (NEGATIVE)
[2024-01-18 21:24] VITALS: BP 152/70; PULSE 87; RESP 16; TEMP 37.1; O2SAT 100
== END 2024-01-18 21:25 | disposition home or self-care (01) ==
PROVIDERS: Physician Assistant Medical; Emergency Provider Emergency Medicine; PCP Nurse Practitioner Family
DX: S40.022A Contusion of left upper arm, initial encounter (principal); M25.522 Pain in left elbow; W18.2XXA Fall in (into) shower or empty bathtub, initial encounter; Y93.E1 Activity, personal bathing and showering; Y92.002 Bathroom of unspecified non-institutional (private) residence as the place of occurrence of the external cause; Y99.8 Other external cause status; Z79.899 Other long term (current) drug therapy
CPT/HCPCS: 73030; 73060; 73080; 81025; 99283

== ENCOUNTER 2024-02-11 09:22 | Emergency (ER) | payer OTHER, SELFPAY ==
--- NOTE | ~2024-02-11 | CT_ITS ---
EXAMINATION: CT ABDOMEN AND PELVIS WITHOUT CONTRAST CLINICAL INFORMATION: Left flank pain, microscopic hematuria COMPARISON: CT abdomen and pelvis 12/09/2021 TECHNIQUE: Multidetector volumetric imaging was performed from the superior aspect of the liver through the pubic symphysis. Sagittal and coronal reformatted images were obtained on the technologist's workstation. This CT examination was performed using dose optimization techniques as appropriate, variously including the following: *Automated exposure control *Adjustment of mA and/or kV according to patient size (this includes techniques or standardized protocols for targeted exams where dose is matched to indication/reason for exam; i.e. extremities or head) *Use of iterative reconstruction technique DLP: 857 mGy-cm FINDINGS: LUNG BASES: Unremarkable. ABDOMINAL AND PELVIC WALL: Diastases of the rectus abdominis musculature with superimposed small fat-containing umbilical hernia. LIVER AND BILIARY TREE: Unremarkable. GALLBLADDER: Unremarkable. PANCREAS: Unremarkable. SPLEEN: Unremarkable. ADRENAL GLANDS: Unremarkable. KIDNEYS AND URETERS: No hydronephrosis or nephrolithiasis. GASTROINTESTINAL TRACT: Postsurgical changes of gastric sleeve. Colonic diverticulosis without evidence of diverticulitis. Appendix appears mildly dilated at the base where it measures 0.9 cm however not significantly changed from prior, previously 0.8 cm, and is otherwise air-filled with no periappendiceal fat stranding to favor appendicitis. VASCULAR: Unremarkable. LYMPH NODES/PERITONEUM: No lymphadenopathy. FREE FLUID: None. BLADDER: Unremarkable. PELVIC VISCERA: Unremarkable. OSSEOUS STRUCTURES: Unremarkable. CT/CT abdomen pelvis wo IV con IMPRESSION: 1. No hydronephrosis or nephrolithiasis. 2. Appendix appears mildly chronically dilated at the base where it measures 0.9 cm not significantly changed from prior, and is otherwise air-filled with no periappendiceal fat stranding to favor appendicitis.
[2024-02-11 09:31] VITALS: BP 160/99; PULSE 89; RESP 16; TEMP 36.7; O2SAT 100; BMI 39.5
[2024-02-11 09:51] LABS: MANUAL DIFF FLAG NO
--- NOTE | 2024-02-11 09:54 | ED_ITS ---
HPI - Abdominal Pain General Chief Complaint: Abdominal Pain Stated Complaint: Abd & back pain Time Seen by Provider: 02/11/24 09:37 Source: patient Mode of arrival: ambulatory Limitations: no limitations History of Present Illness HPI narrative: patient is a 33-year-old female who presents to the emergency department for evaluation of abdominal pain. She endorses having primarily left-sided abdominal pain radiating to the lateral aspect and into the flank over the past week with progressive worsening. She is associated nausea and intermittent frequent of. She reports that she has a history of PCOS but she feels that this pain is of an increased severity and different location than what she would typically expect with her PCOS which is primarily diffuse lower abdominal pain. She also endorses having suprapubic pressure with urination, as well as malodorous urine. Denies any hematuria, denies any history of nephrolithiasis. Denies fevers, chills, diarrhea, constipation. When asked she states she is unaware of the date of her last menstrual period as they are quite irregular, she is currently sexually active and states she has not trying to prevent , does not have any confirmed at this time. Related Data Home Medications ?Medication ?Instructions ?Recorded ?Confirmed sertraline 50 mg tablet (Zoloft) 50 mg PO DAILY 01/14/22 05/21/23 nifedipine 30 mg tablet,extended 30 mg PO DAILY 08/10/22 05/21/23 release albuterol sulfate 90 mcg/actuation 2 puff inhalation Q4-6H PRN 05/21/23 05/21/23 aerosol inhaler Shortness Of Breath Or Wheezing hydroxyzine HCl 25 mg tablet 25 mg PO TID PRN Anxiety 05/21/23 05/21/23 multivitamin 1 tab PO DAILY 05/21/23 05/21/23 Previous Rx's ?Medication ?Instructions ?Recorded amoxicillin 875 mg-potassium 1 tab PO BID rectal pain 7 days 10/06/23 clavulanate 125 mg tablet #14 tabs acetaminophen 500 mg tablet 500 mg PO QID PRN pain #20 tabs 01/18/24 cyclobenzaprine 5 mg tablet 5 mg PO TID PRN muscle spasm #7 01/18/24 tabs Allergies Allergy/AdvReac Type Severity Reaction Status Date / Time labetalol Allergy Hives Verified 02/11/24 09:31 sunflower seed Allergy Hives Verified 02/11/24 09:31 Review of Systems Review of Systems Yes all other systems are reviewed and are negative [facility] Past Medical History Attestation statement: The following information was validated with the patient. Source: old records reviewed Medical History Perianal abscess Heart murmur Gestational diabetes Pre-eclampsia Hypertension PCOS (polycystic ovarian syndrome) Surgical History Hx of section S/P gastric sleeve procedure Family History Family History Mother Stroke Hypertension Father No problems noted. Brother No problems noted. Brother No problems noted. Sister No problems noted. Sister No problems noted. Son Asthma ADHD Heart murmur Son No problems noted. 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 No acute distress.?Normal affect. Eyes: Pupils equal, round and reactive to light.? ENT: Pharynx normal.?? Neck: Normal inspection.? Neck supple.?? CVS: Heart sounds normal. Normal heart rate and rhythm.? Pulses normal.?? Respiratory: No respiratory distress.? Lung sounds clear to auscultation bilaterally?? Abdomen: Soft with left upper lower quadrant tenderness upon palpation, left CVA tenderness upon palpation. Normoactive bowel sounds. No pulsatile mass.?? Skin: Skin warm and dry.? Normal skin color.? ? Extremities: No lower extremity edema.? Neuro: Moves all extremities spontaneously. Sensation intact bilaterally. Ambulates with normal steady gait. Course Reevaluation(s) Reevaluation #1: Patient requesting to be discharged at this time, CT results are pending. Patient was advised that at this time she is leaving against medical advice, we discussed inability to rule out intra-abdominal infection, surgical emergencies, reviewed possibility of life-threatening illness. 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 Discussed antibiotics for urinary infection and she state I'll call my own doctor about that . Time: 12:54 Reevaluation #2: CT/CT abdomen pelvis wo IV con IMPRESSION: 1. No hydronephrosis or nephrolithiasis. 2. Appendix appears mildly chronically dilated at the base where it measures 0.9 cm not significantly changed from prior, and is otherwise air-filled with no periappendiceal fat stranding to favor appendicitis. Reviewed CT results no acute intra-abdominal Medical Decision Making Medical Decision Making [facility] Narrative: Patient is a 33-year-old male past medical history of gastric sleeve procedure, perianal abscess, gestational diabetes, obesity, PCOS, hypertension presenting to emergency department for evaluation of left-sided abdominal pain genitourinary symptoms as per HPI. She does have diffuse left abdominal tenderness and left CVA tenderness on examination. Overall she appears well, nontoxic, afebrile. She is without tachycardia tachypnea. She speaking clear full sentences. She has been tolerating oral intake but does have some nausea currently. Will obtain CBC to evaluate for leukocytosis/ anemia, CMP and lipase to evaluate for abnormal electrolytes /abnormal renal function/ abnormal hepatic/biliary function, HCG and Urinalysis. Differential Diagnosis Differential Diagnoses: The differential diagnosis associated with the presentation includes ( gastroenteritis, gastritis, diverticulitis, bowel obstruction, pyelonephritis, hydronephrosis, ureteral calculi, urinary tract infection) Admission/Observation Consideration of admission/observation: Escalation of care including admission/observation considered ( see narrative above and course narrative for further detail) Lab Data [facility] Lab Attestation statement: I reviewed the patient's lab results. CBC is without leukocytosis or anemia. No electrolyte derangement. No AMADEO. Mildly elevated AST otherwise unremarkable transaminases consistent with baseline. Lipase within normal range. Urinalysis reveals pyuria and trace urine back dysuria with microscopic hematuria. HCG is negative. 02/11/24 09:46 02/11/24 09:46 Labs: Lab Results 02/11/24 Range/Units 09:46 WBC 6.4 (4.8-10.8) X10*3/uL RBC 4.75 D (4.20-5.50) X10*6/uL Hgb 13.3 (12.0-16.0) g/dl Hct 43.4 D (37.0-47.0) % MCV 91.4 (80.0-98.0) fL MCH 28.0 (27.0-33.0) pg MCHC 30.6 L (31.0-35.0) g/dl RDW 13.5 (11.0-16.0) % Plt Count 218 (160-400) X10*3/uL MPV 9.7 (9.4-12.3) fL Immature Gran % (Auto) 0.2 (0.0-0.4) % Neut % (Auto) 47.0 (45-73) % Lymph % (Auto) 42.2 H (20-40) % [place] % (Auto) 9.4 (2-11) % Eos % (Auto) 0.9 (0-4) % Baso % (Auto) 0.3 (0-2) % Lymph # (Auto) 2.7 (1.2-4.9) X10*3/uL [place] # (Auto) 0.6 (0.1-1.2) X10*3/uL Eos # (Auto) 0.1 (0.0-0.4) X10*3/uL Baso # (Auto) 0.0 (0.0-0.2) X10*3/uL Abs Immat Gran (auto) 0.01 (0.00-0.03) X10*3/uL Absolute Neuts (auto) 3.0 (2.0-8.3) x10*3/uL Absolute Nucleated RBC 0.000 (0.0-0.012) X10*3/uL Nucleated RBC % (auto) 0.0 (0.0-0.2) /100WBC Sodium 135 (135-145) mmol/L Potassium 4.9 (3.3-5.1) mmol/L Chloride 113 H (96-108) mmol/L Carbon Dioxide 15 L (22-29) mmol/L Anion Gap 12 (12-20) BUN 11 (9-16) mg/dL Creatinine 0.87 (0.5-1.4) mg/dL Estim Creat Clear Calc 118.9 Estimated GFR > 60 Random Glucose 104 (60-115) mg/dL Calcium 9.6 D (8.4-10.2) mg/dL Total Bilirubin 0.4 (0.0-1.0) mg/dL AST 50 H (5-31) U/L ALT 18 (0-31) U/L Alkaline Phosphatase 61 (39-117) U/L Total Protein 7.9 (6.5-8.0) g/dL Albumin 3.3 L (3.5-5.0) g/dL Lipase 21 (8-78) U/L Urine Color Yellow Urine Appearance Cloudy Urine pH 6.0 (5.0-9.0) Ur Specific [place] 1.020 (1.005-1.025) Urine Protein 30 (1+) H (Neg-Trace) mg/dL Urine Glucose (UA) Negative (Negative) mg/dL Urine Ketones Negative (Negative) mg/dL Urine Blood Small (1+) H (Negative) Urine Nitrite Negative (Negative) Ur Leukocyte Esterase Large (3+) H (Negative) Urine RBC >20 H (0-2) /HPF Urine WBC >50 H (0-5) /HPF Ur Squamous Epith Cells 0-2 (0-2) /HPF Urine Bacteria Trace (None Seen) Hyaline Casts 0-2 (0-2) /LPF Urine Test NEGATIVE (NEGATIVE) Independent Interpretation I performed an independent interpretation of an: CT Scan ( no nephrolithiasis, ureteral calculi, no hydronephrosis) Radiology Impression Discussion of test interpretation with radiology: I have reviewed the radiologist's reading. External Record Review External record reviewed: Outpatient record Prescription Management I considered prescription management with: Antibiotic ( see course narrative) Medications Administered Discontinued Medications Generic Name Dose Route Start Last Admin Trade Name Freq PRN Reason Stop Dose Admin Acetaminophen 975 mg 02/11/24 10:18 02/11/24 10:35 Acetaminophen 325 Mg Tablet PO 02/11/24 10:19 975 mg ONCE ONE Administration Sodium Chloride 1,000 mls @ 999 mls/hr 02/11/24 10:30 02/11/24 11:46 Ns IV 02/11/24 11:30 Infused .Q1H1M PRIMO Infusion Ceftriaxone Sodium 1 gm/ 50 mls @ 100 mls/hr 02/11/24 10:23 02/11/24 11:46 Sodium Chloride IV 02/11/24 10:52 Infused ONCE ONE Infusion Ondansetron HCl 4 mg 02/11/24 10:18 02/11/24 10:35 Ondansetron Hcl 4 Mg/2 Ml Vial IVPUSH 02/11/24 10:19 4 mg ONCE ONE Administration Discharge Plan Discharge Clinical Impression: Abdominal pain Patient Disposition: Left Against Medical Advice Additional Instructions: It was recommended that you remain in the emergency department while awaiting the results of your CT scan you however have declined. We are unable to rule out any life-threatening possible surgical emergencies within her abdomen without the results of the CT scan. You may always return back to emergency department any new or worsening symptoms or concerns. Please contact your primary care provider to arrange for a follow-up visit. Prescriptions: No Action multivitamin Tablet 1 tab PO DAILY hydroxyzine HCl 25 mg Tablet 25 mg PO TID PRN (Reason: Anxiety) albuterol sulfate 90 mcg/actuation Hfa Aerosol Inhaler 2 puff INHALATION Q4-6H PRN (Reason: Shortness Of Breath Or Wheezing) amoxicillin-pot clavulanate 875-125 mg tablet 1 tab PO BID 7 Days Qty: 14 0RF acetaminophen 500 mg tablet 500 mg PO QID PRN (Reason: pain) Qty: 20 0RF cyclobenzaprine 5 mg tablet 5 mg PO TID PRN (Reason: muscle spasm) Qty: 7 0RF sertraline [Zoloft] 50 mg tablet 50 mg PO DAILY nifedipine 30 mg tablet extended release 30 mg PO DAILY Referrals: Berenice Pacheco, PATRICE [Primary Care Provider] - Stand Alone Forms: Against Medical Advice Interventions: ED Discharge Assessment Last Done: 02/11/24 12:59 Print Language: Montenegrin
[2024-02-11 10:08] LABS: Appearance Urine Cloudy; Basophils Percent Auto 0.3 % (0-2); Color Urine Yellow; Eosinophils Absolute Auto 0.1 X10*3/uL (0.0-0.4); Eosinophils Percent Auto 0.9 % (0-4); Glucose Urine UA Negative (Negative); Hematocrit 43.4 % (37.0-47.0); Hemoglobin 13.3 g/dl (12.0-16.0); Imm Gran Abs Auto 0.01 X10*3/uL (0.00-0.03); Imm Gran Pct Auto 0.2 % (0.0-0.4); Leukocyte Esterase Urine Large (3+) (Negative); Lymphocytes Absolute Auto 2.7 X10*3/uL (1.2-4.9); Lymphocytes Percent Auto 42.2 % (20-40); Mean Corpuscular HGB Conc 30.6 g/dl (31.0-35.0); Mean Corpuscular Volume 91.4 fL (80.0-98.0); Mean Platelet Volume 9.7 fL (9.4-12.3); Monocytes Absolute Auto 0.6 X10*3/uL (0.1-1.2); Monocytes Percent Auto 9.4 % (2-11); Nitrite Urine Negative (Negative); Platelet Count 218 X10*3/uL (160-400); Red Blood Count 4.75 X10*6/uL (4.20-5.50); Red Cell Distribution Width 13.5 % (11.0-16.0); UMIC TRIGGER UACC YES; Urine Blood Small (1+) (Negative); Urine Ketones Negative (Negative); Urine Protein 30 (1+) mg/dL (Neg-Trace); White Blood Count 6.4 X10*3/uL (4.8-10.8)
[2024-02-11 10:09] LABS: Alanine Aminotransferase 18 U/L (0-31); Albumin Level 3.3 g/dL (3.5-5.0); Alkaline Phosphatase 61 U/L (39-117); Anion Gap 12 (12-20); Aspartate Amino Transferase 50 U/L (5-31); Bilirubin Total 0.4 mg/dL (0.0-1.0); Blood Urea Nitrogen 11 mg/dL (9-16); Calcium 9.6 mg/dL (8.4-10.2); Carbon Dioxide 15 mmol/L (22-29); Chloride 113 mmol/L (96-108); Creatinine Clr Calc Pharmacy 118.9; Estimated Glomerular Filt Rate > 60; Glucose Random 104 mg/dL (60-115); Potassium 4.9 mmol/L (3.3-5.1); Sodium 135 mmol/L (135-145); Total Protein 7.9 g/dL (6.5-8.0)
[2024-02-11 10:10] LABS: UPreg QC Valid YES; Urine Pregnancy NEGATIVE (NEGATIVE)
[2024-02-11 10:13] LABS: Bacteria Urine Trace (None Seen); Hyaline Casts Urine 0-2 /LPF (0-2); RBC Urine >20 /HPF (0-2); Squamous Epithelial Cell Urine 0-2 /HPF (0-2); UACC Culture Trigger YES; WBC Urine >50 /HPF (0-5)
[2024-02-11] MEDS: Acetaminophen 325 MG TABLET 975 MG PO (10:35)
[2024-02-11] MEDS: ondansetron HCL 4 MG/2 ML VIAL IVPUSH (10:35)
[2024-02-11] MEDS: cefTRIAXone sodium 1 GM in 0.9 % Sodium Chloride 50 ML IV (10:35)
[2024-02-11] MEDS: 0.9 % Sodium Chloride 1,000 ML 999 ML IV (10:36)
[2024-02-11 10:37] LABS: Lipase 21 U/L (8-78)
[2024-02-11 12:59] VITALS: BP 160/99; PULSE 89; RESP 16; TEMP 36.7; O2SAT 100
== END 2024-02-11 12:59 | disposition left against medical advice (07) ==
PROVIDERS: Nurse Practitioner Family; Emergency Provider Student in an Organized Health Care Education/Training Program; PCP Nurse Practitioner Family
DX: R10.9 Unspecified abdominal pain (principal); E28.2 Polycystic ovarian syndrome; I10 Essential (primary) hypertension; Z98.84 Bariatric surgery status
CPT/HCPCS: 36415; 74176; 80053; 81001; 81003; 81025; 83690; 85025; 87086; 96365; 96375; 99283; 99284; J0696; J2405

== ENCOUNTER 2024-02-11 17:23 | Emergency (ER) | payer OTHER, SELFPAY ==
[2024-02-11 17:36] VITALS: BP 149/85; PULSE 88; RESP 18; TEMP 36.3; O2SAT 97; BMI 39.5
--- NOTE | 2024-02-11 17:41 | ED_ITS ---
HPI - General Adult General Chief complaint: Abdominal Pain Stated complaint: appendicitis, here this morning Time Seen by Provider: 02/11/24 17:41 Source: patient Mode of arrival: ambulatory Limitations: no limitations History of Present Illness HPI narrative: 33 year old female returns to the ED thinking CT scan results stated appendicitis. Upon review CT scan does not show appendicitis. UA shows UTI. patient states no new symptoms since leaving this morning. Related Data Home Medications ?Medication ?Instructions ?Recorded ?Confirmed sertraline 50 mg tablet (Zoloft) 50 mg PO DAILY 01/14/22 05/21/23 nifedipine 30 mg tablet,extended 30 mg PO DAILY 08/10/22 05/21/23 release albuterol sulfate 90 mcg/actuation 2 puff inhalation Q4-6H PRN 05/21/23 05/21/23 aerosol inhaler Shortness Of Breath Or Wheezing hydroxyzine HCl 25 mg tablet 25 mg PO TID PRN Anxiety 05/21/23 05/21/23 multivitamin 1 tab PO DAILY 05/21/23 05/21/23 Previous Rx's ?Medication ?Instructions ?Recorded amoxicillin 875 mg-potassium 1 tab PO BID rectal pain 7 days 10/06/23 clavulanate 125 mg tablet #14 tabs acetaminophen 500 mg tablet 500 mg PO QID PRN pain #20 tabs 01/18/24 cyclobenzaprine 5 mg tablet 5 mg PO TID PRN muscle spasm #7 01/18/24 tabs cefpodoxime 200 mg tablet 200 mg PO Q12H 7 days #14 tabs 02/11/24 Allergies Allergy/AdvReac Type Severity Reaction Status Date / Time labetalol Allergy Hives Verified 02/11/24 17:37 sunflower seed Allergy Hives Verified 02/11/24 17:37 Review of Systems Review of Systems: Lower abdominal cramping with dysuria Yes all other systems are reviewed and are negative [facility], [facility] Past Medical History Medical History Perianal abscess Heart murmur Gestational diabetes Pre-eclampsia Hypertension PCOS (polycystic ovarian syndrome) Surgical History Hx of section S/P gastric sleeve procedure Family History Family History Mother Stroke Hypertension Father No problems noted. Brother No problems noted. Brother No problems noted. Sister No problems noted. Sister No problems noted. Son Asthma ADHD Heart murmur Son No problems noted. 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 Physical Exam ED Vital Signs: Vital Signs - 24 hr 02/11/24 17:36 02/11/24 18:05 Temperature 97.3 F 97.3 F Pulse Rate 88 88 Respiratory Rate 18 18 Blood Pressure 149/85 H 149/85 H Pulse Oximetry 97 97 Oxygen Delivery Method Room Air Room Air BMI result Body Mass Index 39.5 Const General: cooperative, healthy appearing, comfortable, no acute distress, well developed, alert and awake Orientation/consciousness: oriented to person, oriented to place, oriented to time and patient oriented x3 HENMT Head: Yes normal to inspection, Yes No palpable skull fracture present, Yes normocephalic, Yes atraumatic and No abrasion Eyes General: appearance normal, both eyes and all related structures Neck Neck: Yes normal visual inspection, Yes full ROM, Yes no lymphadenopathy, Yes no meningeal signs, Yes trachea midline, Yes supple, No anterior neck swelling and No tender Chest Chest palpation & inspection: normal inspection of the chest and normal palpation of entire chest wall Resp Effort & Inspection: normal respiratory effort and able to speak in complete sentences Auscultation: clear to auscultation bilaterally Cardio Jugular venous distension: no JVD Heart sounds: S1 normal heart sound present and S2 normal heart sound present GI Inspection: Yes normal to inspection Palpation (GI): Soft to palpation, not firm, nontender, no guarding and not rigid General: No CVA tenderness and Yes no CVA tenderness Back/Spine/Pelvis Back: no CVA tenderness, No CVA tenderness and No back tenderness Skin General skin exam: no rashes or lesions noted, elasticity normal and turgor normal Neuro General: oriented to person, oriented to place, oriented to time, patient oriented x3, gait normal, tone normal, moves all extremities, Normal light touch and pain sensation, no meningeal signs, no focal motor deficits, CN's II-XI intact bilaterally and normal sensation to monofilament Extrem General: Yes normal to inspection, Yes full ROM and Yes capillary refill normal Psych Appearance: grossly normal, well kempt and not disheveled Medical Decision Making Medical Decision Making [facility] Narrative: RME: 33-year-old female presents to ED thinking CT scan shows appendicitis. CT scan reviewed negative for appendicitis. UA shows UTI. Patient will be discharged with antibiotics. Patient explained worrisome signs and informed to return to the ED she has some Differential Diagnosis Differential Diagnoses: The differential diagnosis associated with the p resentation includes (UTI, kidney stones, appendicitis) Admission/Observation Consideration of admission/observation: Escalation of care including admi ssion/observation considered Lab Data [facility] Lab Attestation statement: I reviewed the patient's lab results. (labs earlier in the day) Independent Interpretation I performed an independent interpretation of an: CT Scan Interpretation: From visit earlier in the day Radiology Impression Discussion of test interpretation with radiology: I have reviewed the radiologist's reading. External Record Review External record reviewed: Other (prior visit) Prescription Management I considered prescription management with: Antibiotic Discharge Plan Discharge Clinical Impression: UTI (urinary tract infection) Patient Disposition: Home, Self-Care Instructions: Urinary Tract Infection in Women (ED) Additional Instructions: Return to the ED immediately for any flank pain, nausea, vomiting, fever, chills, hematuria, weakness, or any other concerning symptoms. Recommend follow-up with primary care provider. Prescriptions: New cefpodoxime 200 mg tablet 200 mg PO Q12H 7 Days Qty: 14 0RF Rx Instructions: must administer with a meal/food No Action multivitamin Tablet 1 tab PO DAILY hydroxyzine HCl 25 mg Tablet 25 mg PO TID PRN (Reason: Anxiety) albuterol sulfate 90 mcg/actuation Hfa Aerosol Inhaler 2 puff INHALATION Q4-6H PRN (Reason: Shortness Of Breath Or Wheezing) amoxicillin-pot clavulanate 875-125 mg tablet 1 tab PO BID 7 Days Qty: 14 0RF acetaminophen 500 mg tablet 500 mg PO QID PRN (Reason: pain) Qty: 20 0RF cyclobenzaprine 5 mg tablet 5 mg PO TID PRN (Reason: muscle spasm) Qty: 7 0RF sertraline [Zoloft] 50 mg tablet 50 mg PO DAILY nifedipine 30 mg tablet extended release 30 mg PO DAILY Stand Alone Forms: Work/School Release Interventions: ED Discharge Assessment Last Done: 02/11/24 18:05 Discharge Date/Time: 02/11/24 18:05 Print Language: Gibraltarian
[2024-02-11 18:05] VITALS: BP 149/85; PULSE 88; RESP 18; TEMP 36.3; O2SAT 97
== END 2024-02-11 18:05 | disposition home or self-care (01) ==
PROVIDERS: Emergency Provider Internal Medicine; PCP Nurse Practitioner Family
DX: N39.0 Urinary tract infection, site not specified (principal); I10 Essential (primary) hypertension; E28.2 Polycystic ovarian syndrome
CPT/HCPCS: 99282; 99283

== ENCOUNTER → 2024-02-23 14:03 | Outpatient (BNVA) | payer OTHER, SELFPAY | PROVIDERS: PCP Nurse Practitioner Family; Visit Provider Physician Assistant Surgical ==

== ENCOUNTER 2024-05-16 12:40 | Outpatient (AMB) | payer OTHER, SELFPAY ==
--- NOTE | 2024-05-16 12:35 | MHC.OFFVISWM ---
VS Expanded 05/16/24 12:40 Height 5 ft 6 in Weight 253 lb BMI 40.8 Intake Visit Reasons: TV PO LSG 10/13/21 Allergies labetalol Allergy (Verified 02/11/24 17:37) Hives sunflower seed Allergy (Verified 02/11/24 17:37) Hives Medication List - Last Reconciled 05/16/24 by EVELIO Guevara acetaminophen 500 mg PO QID PRN albuterol sulfate 90 mcg/actuation 2 puffs inhalation Q4-6H PRN hydroxyzine HCl 25 mg PO TID PRN multivitamin 1 tab PO DAILY nifedipine ER 30 mg PO DAILY sertraline (Zoloft) 50 mg PO DAILY HPI Comments Details: This?is a?34?yo female who is s/p LSG 10/13/2021 at O[facility]. Presents for 2.5 year post op visit. Weight at last visit on 06/30/2023 was 213lbs, weight today is 253 pounds, representing a 40 pound weight gain with a BMI today of 40.8.?Having a lot of nausea and reflux. Has a lot of life stress, from her , lost 6 family members. I asked if pt's current circumstances would be conducive to another surgery if she were to pursue this and she feels confident that her life is moving in a more positive direction and she has appropriate supports. No longer . Present meal plan includes: a lot of little snacks - cottage cheese dinner 6-7pm - small portions with protein, grains wakes between 6-7am bedtime 11pm-2am Exercise routine includes: none, has no gym membership, but likes to walk/hike [facility] Medical History Perianal abscess Heart murmur Gestational diabetes Pre-eclampsia Hypertension PCOS (polycystic ovarian syndrome) Surgical History Hx of section S/P gastric sleeve procedure Family History Mother Stroke Hypertension Father No problems noted. Brother No problems noted. Brother No problems noted. Sister No problems noted. Sister No problems noted. Son Asthma ADHD Heart murmur Son No problems noted. 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 Telehealth Telehealth Telehealth Platform: Telephone Location of provider rendering services: other Location of patient: address on file Patient Identification confirmed using: Name, : Yes Telehealth method: voice only Patient verbally consented to treatment: Yes Patient verbally consented to billing insurance company: Yes Patient informed of any privacy concerns related to visit: Yes Minutes spent on Phone/Video with Pt.: 25 Assessment & Plan Assessment & Plan (1) S/P gastric sleeve procedure: Comment: 10/13/2021 Code(s): Z90.3 - Acquired absence of stomach [part of] Category: Surgical (2) Morbid obesity: Code(s): E66.01 - Morbid (severe) obesity due to excess calories Category: Medical Plan This is a 34 yo female who will start our SWL program to prepare for revision bariatric surgery.? Blood work, H pylori, CXR, ECG, Abd US and endoscopy will be ordered after next appointment. She is being scheduled for RD and BH initial consultations. She will start SWL classes after next appointment. ? Adequate sleep of 7-8 hours per night discussed. ?? Pt will purchase body composition analyzer scale (Phu Daniel or Samson recommended) and check weight weekly. The best time to do this is first thing in the morning after going to the bathroom on . 1. Nutritional counseling. Atkins protein shake 8am-10am FitcruncClari protein bar ([email or web address], [employer]) 11am-1pm Atkins protein shake 2pm-4pm Dinner at 6pm- 6 forks (3oz) of protein and 6 forks (3oz) of salad/vegetables Fitcrunch protein bar 8pm-10pm Meal to include lean meat (beef, fish, pork, turkey, chicken), cooked vegetables or a salad with olive oil and/or fruits (berries, pears, apples, kiwi). Avoid salt, breads, potatoes, rice, pasta, desserts.? Try to drink 64 oz of water daily and avoid soda and juices. ?2. Each shake would be drunk slowly, like coffee in a period of 2 hours. ?3. Cut each bar in 4 pieces and eat each piece in 30 min? to make each bar last 2 hours. ?4. I emphasized the importance of measuring accurately the food portion and measure it carefully when serving the food on the plate ?5. The meal portions include 6 full-size forks of meat and 6 full-size forks of salad. You always eat the meat portion but you can replace up to half of the forks of salad/vegetables with rice, potatoes or pasta, or a fruit? if you like. The less you do it the better weight loss will be. ?6. One full-size fork is what can be scooped on the fork without falling aside and not what can be bit with the fork. Use regular forks like those you find in a typical restaurant. ?7.? Please send me weight measurements as soon as possible and then once a week on . Always include your diet and exercise plan. Alternatively come weekly at the office for weight checks and send me the measurements. ?8. Start elliptical with an incline of 2.0 and resistance of 4.0. Increase resistance by 1 every 3 min to a max resistance of 10.0, and repeat cycles for 300 calories. Alternatively, start treadmill with a speed of 2.0 and incline of 0, increasing incline by 1 every 3 minutes to the highest comfortable level then decrease in the same fashion.? Repeat process to a goal of 300 calories.? Goal of 2000 calories burned or more weekly.? Tracking calories is essential. 9. Alternatively start walking outside daily, tracking calories with a goal of 300 calories per day, daily. You can download the kisha Smartsheet which can track you time, distance and calories while walking outside.? You press start in the kisha when you start and then stop when you are finished.?? 10.? It is important to avoid and for at least 18 months postoperatively. 11. Goal is to lose at least 1.5-2lbs per week. 12. Goal to lose 10% of your weight before surgery, which is about 25 lbs. Ultimate weight goal: 228 lbs before surgery RTC 4 weeks for in person appt. At that time pt to have physical exam and if she has made progress, will order preop tests. Patient is morbidly obese and is not considered stable at this time. I spent a total of 35 minutes reviewing/updating records, examining the patient and counseling the patient on weight management as detailed above.
[2024-05-16 12:40] VITALS: BMI 40.8
== END 2024-05-16 13:12 | disposition home or self-care (01) ==
LOC: HO.HBS 12:40
PROVIDERS: PCP Nurse Practitioner Family; Visit Provider Physician Assistant Surgical
DX: E66.01 Morbid (severe) obesity due to excess calories (principal); Z68.41 Body mass index [BMI] 40.0-44.9, adult; Z90.3 Acquired absence of stomach [part of]; Z98.84 Bariatric surgery status
CPT/HCPCS: 99214; G2211

== ENCOUNTER → 2024-05-16 12:40 | Outpatient (BNVA) | payer OTHER, SELFPAY | PROVIDERS: PCP Nurse Practitioner Family; Visit Provider Physician Assistant Surgical ==

== ENCOUNTER 2025-01-12 07:55 | Emergency (ER) | payer OTHER, SELFPAY ==
--- NOTE | 2025-01-12 | ECG_ITS ---
Test Reason : CP Blood Pressure : */* mmHG Vent. Rate : 88 BPM Atrial Rate : 88 BPM P-R Int : 160 ms QRS Dur : 90 ms QT Int : 352 ms P-R-T Axes : 72 13 17 degrees QTcB Int : 425 ms Normal sinus rhythm Minimal voltage criteria for LVH, may be normal variant ( Randy product ) Borderline ECG When compared with ECG of 21-May-2023 14:20, Premature ventricular complexes are no longer Present T wave inversion now evident in Inferior leads Referred By: Generic ED Physician Electronically Signed By: GIL HERNANDEZ MD
[2025-01-12 08:00] VITALS: BMI 38.7
--- NOTE | 2025-01-12 08:04 | ED_ITS ---
HPI - Chest Pain General Chief Complaint: Chest Pain Stated Complaint: chest pain Time Seen by Provider: 01/12/25 08:02 Source: patient Mode of arrival: ambulatory Limitations: no limitations History of Present Illness ED Provider: HPI narrative: Patient with hypotension nonsmoker no known coronary artery disease under increased stress and anxiety comes here for 4 days of sharp pain off and on lasting for few sec also complaining of sore throat no shortness a breath no palpitation no diaphoresis no radiation of the pain patient does get chest pain whenever she gets stressed Related Data Home Medications ?Medication ?Instructions ?Recorded ?Confirmed sertraline 50 mg tablet (Zoloft) 50 mg PO DAILY 01/14/22 05/16/24 nifedipine 30 mg tablet,extended 30 mg PO DAILY 08/10/22 05/16/24 release albuterol sulfate 90 mcg/actuation 2 puff inhalation Q4-6H PRN 05/21/23 05/16/24 aerosol inhaler Shortness Of Breath Or Wheezing hydroxyzine HCl 25 mg tablet 25 mg PO TID PRN Anxiety 05/21/23 05/16/24 multivitamin 1 tab PO DAILY 05/21/23 05/16/24 Previous Rx's ?Medication ?Instructions ?Recorded acetaminophen 500 mg tablet 500 mg PO QID PRN pain #20 tabs 01/18/24 azithromycin 250 mg tablet See Rx Instructions PO .COMPLEX #6 01/12/25 (Zithromax) tabs Allergies Allergy/AdvReac Type Severity Reaction Status Date / Time labetalol Allergy Hives Verified 01/12/25 08:01 sunflower seed Allergy Hives Verified 01/12/25 08:01 Review of Systems 2 Review of Systems: Yes all other systems are reviewed and are negative PMF Past Medical History Medical History Perianal abscess Heart murmur Gestational diabetes Pre-eclampsia Hypertension PCOS (polycystic ovarian syndrome) Surgical History Hx of section S/P gastric sleeve procedure Family History Family History Mother Stroke Hypertension Father No problems noted. Brother No problems noted. Brother No problems noted. Sister No problems noted. Sister No problems noted. Son Asthma ADHD Heart murmur Son No problems noted. 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 Oriented X3. No acute distress. Eyes: PERRLA, No Nystagmus ENT: Pharynx normal. Oral Mucosa moist no exudates no tonsillar enlargement tympanic membrane intact Neck: Normal inspection. Neck supple. CVS: Normal heart rate and rhythm. Pulses normal. Respiratory: No respiratory distress. Equal air entry bilateral, no wheezing/rales/rhonchi Abdomen: Soft and nontender. Bowel sounds are present, no mass palpable, no CVA tenderness Skin: Skin warm and dry. Normal skin color. Normal skin turgor. Extremities: No lower extremity edema. No calf tenderness Neuro: Oriented X 3. No motor deficit. Medical Decision Making Medical Decision Making [facility] Narrative: patient has atypical chest pain score 0 workup is negative having a sore throat but clinically no irritation noticed will give CPAP for atypical bacteria is rapid strep was negative Lab Data [facility] Lab Attestation statement: I reviewed the patient's lab results. 01/12/25 08:25 01/12/25 08:25 Labs: Lab Results 01/12/25 Range/Units 08:25 WBC 3.8 L (4.8-10.8) X10*3/uL RBC 4.10 L (4.20-5.50) X10*6/uL Hgb 11.5 L (12.0-16.0) g/dl Hct 35.1 L (37.0-47.0) % MCV 85.6 (80.0-98.0) fL MCH 28.0 (27.0-33.0) pg MCHC 32.8 (31.0-35.0) g/dl RDW 13.8 (11.0-16.0) % Plt Count 226 (160-400) X10*3/uL MPV 10.3 (9.4-12.3) fL Immature Gran % (Auto) 0.3 (0.0-0.4) % Neut % (Auto) 49.1 (45-73) % Lymph % (Auto) 33.9 (20-40) % Williamson % (Auto) 12.5 H (2-11) % Eos % (Auto) 3.9 (0-4) % Baso % (Auto) 0.3 (0-2) % Lymph # (Auto) 1.3 (1.2-4.9) X10*3/uL Williamson # (Auto) 0.5 (0.1-1.2) X10*3/uL Eos # (Auto) 0.2 (0.0-0.4) X10*3/uL Baso # (Auto) 0.0 (0.0-0.2) X10*3/uL Abs Immat Gran (auto) 0.01 (0.00-0.03) X10*3/uL Absolute Neuts (auto) 1.9 L (2.0-8.3) x10*3/uL Absolute Nucleated RBC 0.000 (0.0-0.012) X10*3/uL Nucleated RBC % (auto) 0.0 (0.0-0.2) /100WBC Hold Blue Top SEE NOTE Sodium 136 (135-145) mmol/L Potassium 4.1 (3.3-5.1) mmol/L Chloride 112 H (96-108) mmol/L Carbon Dioxide 21 L (22-29) mmol/L Anion Gap 7 L (12-20) BUN 9 (9-16) mg/dL Creatinine 0.80 (0.5-1.4) mg/dL Estim Creat Clear Calc 122.5 Estimated GFR > 60 Random Glucose 89 (60-115) mg/dL Calcium 9.0 D (8.4-10.2) mg/dL Magnesium 1.9 (1.6-2.6) mg/dL Total Bilirubin 0.3 (0.0-1.0) mg/dL AST 40 H (5-31) U/L ALT 10 (0-31) U/L Alkaline Phosphatase 48 (39-117) U/L Troponin I High Sens < 2.7 (<3.5-17.0) ng/L Total Protein 6.7 (6.5-8.0) g/dL Albumin 3.5 (3.5-5.0) g/dL S. pyogenes GrpA LORENA Negative (Negative) Independent Interpretation I performed an independent interpretation of an: EKG Interpretation: normal sinus rhythm heart rate 88 beats per minute normal intervals normal axis no acute ST-T changes no acute ischemia Discharge Plan Discharge Clinical Impression: Atypical chest pain, Acute pharyngitis Patient Disposition: Home, Self-Care Instructions: Pharyngitis (ED), Noncardiac Chest Pain (ED) Additional Instructions: your chest pain is unlikely from the heart your workup is normal follow up with your PCP for further evaluation possibilities from anxiety your strep test is negative start taking antibiotic for laryngitis /pharyngitis Prescriptions: New azithromycin [Zithromax] 250 mg tablet See Rx Instructions .ROUTE .COMPLEX Qty: 6 0RF Rx Instructions: For 250 mg dose pack: take 500 mg today (day 1), then 250 mg for 4 days (days 2-5) No Action multivitamin Tablet 1 tab PO DAILY hydroxyzine HCl 25 mg Tablet 25 mg PO TID PRN (Reason: Anxiety) albuterol sulfate 90 mcg/actuation Hfa Aerosol Inhaler 2 puff INHALATION Q4-6H PRN (Reason: Shortness Of Breath Or Wheezing) acetaminophen 500 mg tablet 500 mg PO QID PRN (Reason: pain) Qty: 20 0RF sertraline [Zoloft] 50 mg tablet 50 mg PO DAILY nifedipine 30 mg tablet extended release 30 mg PO DAILY Interventions: ED Discharge Assessment Last Done: 01/12/25 09:42 Discharge Date/Time: 01/12/25 09:43 Print Language: Mohawk
[2025-01-12 08:20] VITALS: BP 132/96; PULSE 75; RESP 16; TEMP 36.7; O2SAT 100
[2025-01-12 08:29] LABS: MANUAL DIFF FLAG NO
[2025-01-12 08:37] LABS: Basophils Percent Auto 0.3 % (0-2); Eosinophils Absolute Auto 0.2 X10*3/uL (0.0-0.4); Eosinophils Percent Auto 3.9 % (0-4); Hematocrit 35.1 % (37.0-47.0); Hemoglobin 11.5 g/dl (12.0-16.0); Imm Gran Abs Auto 0.01 X10*3/uL (0.00-0.03); Imm Gran Pct Auto 0.3 % (0.0-0.4); Lymphocytes Absolute Auto 1.3 X10*3/uL (1.2-4.9); Lymphocytes Percent Auto 33.9 % (20-40); Mean Corpuscular HGB Conc 32.8 g/dl (31.0-35.0); Mean Corpuscular Volume 85.6 fL (80.0-98.0); Mean Platelet Volume 10.3 fL (9.4-12.3); Monocytes Absolute Auto 0.5 X10*3/uL (0.1-1.2); Monocytes Percent Auto 12.5 % (2-11); Neutrophils Absolute Auto 1.9 x10*3/uL (2.0-8.3); Neutrophils Percent Auto 49.1 % (45-73); Platelet Count 226 X10*3/uL (160-400); Red Cell Distribution Width 13.8 % (11.0-16.0); White Blood Count 3.8 X10*3/uL (4.8-10.8)
[2025-01-12 08:42] LABS: IDNOW Serial# 55D5AD1C; Strep A Nucleic Acid Negative (Negative)
[2025-01-12 08:50] LABS: Alanine Aminotransferase 10 U/L (0-31); Albumin Level 3.5 g/dL (3.5-5.0); Alkaline Phosphatase 48 U/L (39-117); Anion Gap 7 (12-20); Aspartate Amino Transferase 40 U/L (5-31); Bilirubin Total 0.3 mg/dL (0.0-1.0); Blood Urea Nitrogen 9 mg/dL (9-16); Carbon Dioxide 21 mmol/L (22-29); Chloride 112 mmol/L (96-108); Creatinine Clr Calc Pharmacy 122.5; Estimated Glomerular Filt Rate > 60; Glucose Random 89 mg/dL (60-115); Magnesium 1.9 mg/dL (1.6-2.6); Potassium 4.1 mmol/L (3.3-5.1); Sodium 136 mmol/L (135-145); Total Protein 6.7 g/dL (6.5-8.0)
[2025-01-12 08:58] LABS: Troponin-I High Sensitivity < 2.7 ng/L (<3.5-17.0)
[2025-01-12 09:42] VITALS: BP 132/96; PULSE 75; RESP 16; TEMP 36.7; O2SAT 100
== END 2025-01-12 09:43 | disposition home or self-care (01) ==
PROVIDERS: Emergency Provider Internal Medicine
DX: R07.9 Chest pain, unspecified (principal); J02.9 Acute pharyngitis, unspecified
CPT/HCPCS: 80053; 83735; 84484; 85025; 87651; 93005; 99283

== ENCOUNTER → 2025-01-12 07:57 | Outpatient (BNV) | payer OTHER, SELFPAY | PROVIDERS: Emergency Provider Internal Medicine; Visit Provider Internal Medicine Cardiovascular Disease | DX: R07.9 Chest pain, unspecified (principal) | CPT/HCPCS: 93010 ==

== ENCOUNTER 2025-05-16 15:42 | Outpatient (AMB) | payer OTHER, SELFPAY ==
--- OUTSIDE RECORDS SUMMARY | 2025-05-16 15:43 | XMS_ITS | Clinical Summary ---
Author Organization [facility] Address [address] [place] [address] Phone Care Team Providers Care Inventory Technician Name Role Phone Basilia Beach Primary Care Provider [phone] Allergies Active Allergy Reactions Criticality Noted Date Comments Labetalol 04/10/2023 [place] Hives,Rash,Shortness Of Breath,Swelling,Wheezing High 07/24/2023 Medications multivitamins capsule Daily, 0 Refills, Maintenance, 11/30/21 15:56:00 EST, Partial fill upon patient request if the prescription is for a schedule II opioid drug. 2 Active cetirizine (ZYRTEC) 10 MG tablet Take 10 mg by mouth. 3 Active fluticasone propionate (FLOVENT HFA) 44 mcg/actuation inhaler Inhale into the lungs. 3 Active sertraline (ZOLOFT) 50 MG tablet Take by mouth. 3 Active NIFEdipine (ADALAT CC) 30 MG 24 hr tablet Take 30 mg by mouth daily. Active hydrOXYzine (ATARAX) 25 MG tablet Take 25 mg by mouth 3 (three) times a day as needed for itching. Active Active Problems Problem Noted Date Diagnosed Date PCOS (polycystic ovarian syndrome) 07/24/2023 Assessment & Plan (07/24/2023 7:52 PM EDT): In review of this patients history and clinical findings today, PCOS remains suspected. In light of the common public misunderstanding of the disorder, extensive counseling/education was needed. The prevalent relationship of PCOS with insulin resistance, ovarian dysfunction and consequent long-term health issues of diabetes and heart disease were presented to the patient. Further, distinction between treatment of PCOS-associated symptoms and correction of an underlying hyper-insulinemia was offered with the inherent relationship of PCOS to dietary carbohydrate intake, cardiovascular exercise and weight (increase body mass index). Behavioral interventions are preferred and medical options will be reserved should these approaches fail to adequately improve her condition. Patient s/p weight loss surgery with a significant amount of weight lost. Patient planning to try and conceive, however, she is having irregular cycles and can go 3-4 months between periods. She is currently . Counseled that this could significantly impact her ability to ovulate spontaneously. She is going to consider whether or not she is ready to stop . Patient had a period approximately 1 week ago. Plan day 21 progesterone level to check if patient ovulated spontaneously. Will follow up in 4 weeks to discuss patients feelings regarding plan of care. Female infertility 07/24/2023 Encounters Date Type Department Care Team Description 03/03/2025 10:00 AM EDT Office Visit [facility] [employer] [address] Screening for HIV (human immunodeficiency virus) (Primary Dx) 03/03/2025 Orders Only [address] [address] Argenis Stone MD 03/03/2025 Orders Only [address] [address] Argenis Stone MD from Last 3 Months Family History Medical History Relation Comments Heart attack Maternal Grandfather Heart failure Maternal Grandmother Heart murmur Mother Stroke Mother Heart murmur Son Relation Status Comments Father Maternal Grandfather Maternal Grandmother Mother Alive Son Alive Social History Tobacco Use Types Packs/Day Years Used Date Smoking Tobacco: Former Cigarettes Passive Smoke Exposure: Never Smokeless Tobacco: Never Alcohol Use Standard Drinks/Week Comments Not Currently 0 (1 standard drink = 0.6 oz pur e alcohol) rarely Child or Family Care Answer Date Record ed Do you have problems with on e of the following making it difficult for you to work, study, or receive health care? Childcare 01/10/2025 Education Answer Date Recorded Are you interested in help w ith more adult education (for example, completing high school, GED, job training, learning the Lao language, technical skills, or developing parenting skills)? No 01/10/2025 Are you concerned about learning? Not on file 01/10/2025 No 01/10/2025 Yes 01/10/2025 Food Answer Date Recorded Within the past 6 months we worried whether our food would run out before we got money to buy more. Never True 01/10/2025 Within the past 6 months the food we bought just didn't last and we didn't have enough money to get more. Never True Residential Stability Answer Date Recor ded What is your housing situation today? I have chidi sing 01/10/2025 How many times have you move d in the past 12 months? Zero (I did not move) 01/10/2025 Paying for Meds Answer Date Recorded Do you have trouble paying for medicines? No 01/10/2025 Paying Utility Bills Answer Date Record ed Do you have trouble paying your heating or elect ricity bill? Yes 01/10/2025 Transportation Answer Date Recorded Has the lack of transportati on kept you from medical appointments or from getting medications? No 01/10/2025 Unemployment Answer Date Recorded Are you currently unemployed or working on a part-time or temporary basis, and looking for work? No 01/10/2025 Digital Access Answer Date Recorded No 01/10/2025 Yes 01/10/2025 Do you have reliable internet access at home? Ye s 01/10/2025 Do you have a device (e.g., phone, tablet, computer) with a working camera? Yes 01/10/2025 Intimate Partner Violence Answer Date R ecorded Denied Basic Needs Not on file 01/10/2025 In the past 12 months have y ou been in a relationship with a person who hurts, threatens, or tries to control you? No 01/10/2025 Worried food would run out Not on file 01/10 In the past 12 months have y ou been in a relationship with a person who hurts, threatens, or tries to control you? No 01/10/2025 Comments No Sex and Gender Information Value Date Recorded Sex Assigned at Female 11/27/2024 12:45 PM EST Legal Sex Female 9:22 AM EDT Gender Identity Female 11/27/2024 12:45 PM EST Sexual Orientation Straight 11/27/2024 12 :45 PM EST Last Filed Vital Signs Vital Sign Reading Time Taken Comments Blood Pressure 126/82 07/24/2023 12:13 PM EDT Pulse - - Temperature - - Respiratory Rate - - Oxygen Saturation - - Inhaled Oxygen Concentration - - Weight 97.5 kg (215 lb) 07/24/2023 12:13 PM EDT Height - - Body Mass Index - - Plan of Treatment Upcoming Encounters Date Type Department Care Team (Late st Contact Info) Description 09/17/2025 2:00 PM EST [facility] [address] [place] [address] Tia Underwood, CENTRAL SERVICE TECHNICIAN [address] [facility], 2nd [place] [address] Health Maintenance Due Date Last Done Comments SMOKING Hx and SMOKELESS TOBACCO SCREENING 2002 PAP SMEAR 2010 COVID-19 VACCINE (2023-2 5 season) 2024 DEPRESSION SCREENING 01/10/2026 01/10/2025 Adult Td,Tdap Booster 08/14/2027 08/14/2017 HEPATITIS C SCREENING Completed 03/03/2025 , 12/11/2024 HIV ONE-TIME SCREENING (18-6 5 YEARS) Completed 03/03/2025 HEPATITIS A VACCINES Aged Out No long er eligible based on patient's age to complete this topic HIB VACCINES Aged Out No longer eligi ble based on patient's age to complete this topic MENINGOCOCCAL VACCINES (ACWY) Aged Out No longer eligible based on patient's age to complete this topic MENINGOCOCCAL VACCINES (B) Aged Out N o longer eligible based on patient's age to complete this topic PNEUMOCOCCAL VACCINES (0-49 years) Aged Out No longer eligible b ased on patient's age to complete this topic Medical Devices Not on file Procedures Procedure Name Priority Date/Time Associated Diagnosis Comments SYPHILIS ANTIBODY SCREEN ASSAY Routine 03/03/2025 10:27 AM EDT CHLAMYDIA/N. GONORRHOEAE RNA, TMA, THROAT Routine 03/03/2025 10:27 AM EDT HIV-1/2 ANTIGEN/ANTIBODY Routine 03/03/2025 10:27 AM EDT HEPATITIS C VIRAL LOAD (PCR) Routine 03/03/2025 10:27 AM EDT CHLAMYDIA TRACHOMATIS AND NEISSERIA GONORRHOEAE NUCLEIC ACID DETECTION Routine 03/03/2025 10:27 AM EDT from Last 3 Months Results * CHLAMYDIA/N. GONORRHOEAE RNA, TMA, THROAT (03/03/2025 10:27 AM EDT) Chlamydia Trachomatis RNA, TMA, Throat NOT DETECTED NOT DETECTED [facility] [place] [facility] [employer] [facility] Neisseria Gonorrhoeae RNA, TMA, Throat NOT DETECTED NOT DETECTED [facility] [place] [employer] Comment SEE COMMENT [facility] [place] [facility] Comment: The analytical performance characteristics of this assay have been determined by [facility]. The modifications have not been cleared or approved by the FDA. This assay has been validated pursuant to the CLIA regulations and is used for clinical purposes. 03/03/2025 10:2 7 AM EDT 03/04/2025 6:39 AM EDT Narrative [facility] - 03/05/2025 3:12 AM EDT FASTING: UNKNOWN Argenis Stone MD NON CULTURE MICROBIOLOGY Fi nal Result [facility] [address] [address], [facility] [phone] [facility] [place] [facility] [address] * Chlamydia trachomatis and Neisseria gonorrhoeae Nucleic Acid Amplification (03/03/2025 10:27 AM EDT) Chlamydia trachomatis RNA, TMA NOT DETECTED NOT DETECTED [facility] [place] [employer] Neisseria gonorrhoeae RNA, TMA NOT DETECTED NOT DETECTED [facility] [place] [employer] (Always message) SEE COMMENT [facility] [facility] [place] [facility] [employer] Comment: The analytical performance characteristics of this assay, when used to test SurePath(TM) specimens have been determined by [facility]. The modifications have not been cleared or approved by the FDA. This assay has been validated pursuant to the CLIA regulations and is used for clinical purposes. For additional information, please refer to https://[employer].Given.to/faq/JRA911 (This link is being provided for information/ educational purposes only.) 03/03/2025 10:2 7 AM EDT 03/04/2025 6:39 AM EDT Narrative [facility] - 03/05/2025 3:12 AM EDT FASTING: UNKNOWN Argenis Stone MD NON CULTURE MICROBIOLOGY Fi nal Result [facility] [address],[place] [address], [facility] [phone] [facility] [address] * HIV-1/2 antigen/antibody (03/03/2025 10:27 AM EDT) HIV antigen/Antibody, 4th gen NON-REAC TIVE NON-REAC TIVE [facility] [place] [email or web address] Comment: HIV-1 antigen and HIV-1/HIV-2 antibodies were not detected. There is no laboratory evidence of HIV infection. PLEASE NOTE: This information has been disclosed to you from records whose confidentiality may be protected by state law. If your state requires such protection, then the state law prohibits you from making any further disclosure of the information without the specific written consent of the person to whom it pertains, or as otherwise permitted by law. A general authorization for the release of medical or other information is NOT sufficient for this purpose. For additional information please refer to http://[employer].2Win[employer]Solutions/faq/RKZ778 (This link is being provided for informational/ educational purposes only.) The performance of this assay has not been clinically validated in patients less than 2 years old. 03/03/2025 10:2 7 AM EDT 03/05/2025 5:08 AM EDT Narrative [facility] - 03/07/2025 9:28 AM EDT FASTING: UNKNOWN Argenis Stone MD LAB BLOOD ORDERABLES Final Result Performing Organization Address [facility] de Phone Number [facility] [address] [address], [facility] [phone] [facility] [place] [facility] [address] * Syphilis antibody screen (03/03/2025 10:27 AM EDT) Pathologist [facility] RPR (DX) W/REFL TITER AND CONFIRMATORY TESTING NON-REACT TONE NON-REACT TONE [facility] [place] [facility] [employer] Comment: No laboratory evidence of syphilis. If recent exposure is suspected, submit a new sample in 2-4 weeks. 03/03/2025 10:2 7 AM EDT 03/05/2025 5:08 AM EDT [facility] - 03/07/2025 9:28 AM EDT FASTING: UNKNOWN Argenis Stone MD LAB BLOOD ORDERABLES Final Result Performing Organization Address [facility] Co de Phone Number [facility] [address] [address], [facility] [phone] [facility] [place] [facility] [address] * Hepatitis C viral load (PCR) (03/03/2025 10:27 AM EDT) [facility] HCV RNA, Quantitative Real Time PCR <15 NOT DETECTED NOT DETECTED IU/mL [facility] [place] [facility] HCV RNA, Quantitative Real Time PCR <1.18 NOT DETECTED NOT DETECTED Log IU/mL [facility] [place] [employer] Comment: For additional information, please refer to http://education.Given.to/faq/NKE70m3 (This link is being provided for informational/ educational purposes only.) 03/03/2025 10:2 7 AM EDT 03/05/2025 5:08 AM EDT Narrative [facility] - 03/07/2025 9:28 AM EDT FASTING: UNKNOWN Argenis Stone MD NON CULTURE MICROBIOLOGY Fi nal Result [facility] [address] [address], [facility] [phone] [facility] [address] [place] [phone] from Last 3 Months Insurance WELLSENSE NON NSPG PCP SILVER [employer] CONNE[employer]CARE WELLSENSE NON NSPG PCP SILVER CLARITY CONNE[employer]CARE WELLSENSE NON NSPG PCP SILVER CLARITY CONNECTORCARE WE[employer] NON NSPG PCP SILVER CLARITY CONNECTORCARE WELLSENSE NON NSPG PCP SILVER CLARITY CONNECTORCARE WELLS[employer] NON NSPG PCP SILVER CLARITY [facility] SILVER CLARITY CONNECTORCARE Care Teams Inventory Technician Relationship Specialty Start Date End Date Basilia Beach PA [address] [place] [address] PCP - General Physician Expediter 12/11/24 Additional Source Comments The information contained in this document represents components of the legal health record. It is not the complete legal health record.[facility]
--- NOTE | 2025-05-16 15:46 | MHC.OFFVISWM ---
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 She was last seen in the office in May 2024 with a weight of 253 lb and a BMI of 40.8. Weight today is 240.4 lb with a BMI of 38.8. Patient states that she has not been seen in approximately a year as she has been undergoing significant personal traumatic issues. She has gained weight over the last year due to these issues and is looking to refocus her efforts to achieve a healthier life and a healthier lifestyle. 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 She is from [place] originally and intends to move back there once her personal affairs are settled in this area. Not taking bariatric mvi. She states that she recently had labs through her primary care physician a couple of weeks ago. She was given my business card so she may send them to me. We may need to supplement with vitamin levels. meal plan: nothing structured Exercise plan: stationary bike at home 3-4 days per week, hiking 2 x per week. [facility] Medical History (Updated 01/13/25 @ 00:01 by Lore Tuttle) Perianal abscess Heart murmur Gestational diabetes Pre-eclampsia Hypertension PCOS (polycystic ovarian syndrome) Surgical History (Updated 05/16/25 @ 15:49 by Hyun Langford CMA) Hx of hand surgery Hx of section S/P gastric sleeve procedure Family History Mother Stroke Hypertension Father No problems noted. Brother No problems noted. Brother No problems noted. Sister No problems noted. Sister No problems noted. Son Asthma ADHD Heart murmur Son No problems noted. 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 She has recently been experiencing significant personal stress and has regained weight. She was given information regarding the [employer] kisha. discussed the importance of following a meal plan, exercising regularly with a goal of burning 300 calories per day. Encouraged to take bariatric multivitamin. Encouraged to by a body composition scale so she may track her progress. We will have her return to the office in approximately 1 month, calling with any questions or concerns.
[2025-05-16 15:50] VITALS: BP 144/95; PULSE 78; TEMP 36.5; O2SAT 100; BMI 38.8
== END 2025-05-16 16:25 | disposition home or self-care (01) ==
LOC: HO.HBS 15:42
PROVIDERS: Visit Provider Physician Assistant Surgical
DX: E66.9 Obesity, unspecified (principal); Z68.38 Body mass index [BMI] 38.0-38.9, adult; Z90.3 Acquired absence of stomach [part of]; Z98.84 Bariatric surgery status
CPT/HCPCS: 99213

== ENCOUNTER → 2025-05-16 15:42 | Outpatient (BNVA) | payer OTHER, SELFPAY | PROVIDERS: Visit Provider Physician Assistant Surgical | DX: Z98.84 Bariatric surgery status (principal) | CPT/HCPCS: 99212 ==

== ENCOUNTER 2025-06-09 19:45 | Emergency (ER) | payer OTHER, SELFPAY ==
[2025-06-09 19:49] VITALS: BP 197/121; PULSE 96; RESP 17; TEMP 36.2; O2SAT 97; BMI 38.4
--- NOTE | 2025-06-09 19:49 | ED.GENADULT ---
HPI - General Adult General Chief complaint: Extremity Injury, Upper Stated complaint: lt hand injury w knife Time Seen by Provider: 06/09/25 21:42 Source: patient Mode of arrival: ambulatory Limitations: no limitations History of Present Illness ED Provider: Dr. Erin Lama HPI narrative: Patient comes to the emergency room complaining of a laceration to the left index finger. According to the patient, she was cooking dinner, she was trying to break frozen spinach with a knife and she accidentally stabbed herself in the finger. Patient complaining of localized pain and bleeding, not on blood thinners. Related Data Home Medications ?Medication ?Instructions ?Recorded ?Confirmed sertraline 50 mg tablet (Zoloft) 50 mg PO DAILY 01/14/22 05/16/25 nifedipine 30 mg tablet,extended 30 mg PO DAILY 08/10/22 05/16/25 release albuterol sulfate 90 mcg/actuation 2 puff inhalation Q4-6H PRN 05/21/23 05/16/25 aerosol inhaler Shortness Of Breath Or Wheezing hydroxyzine HCl 25 mg tablet 25 mg PO TID PRN Anxiety 05/21/23 05/16/25 Allergies Allergy/AdvReac Type Severity Reaction Status Date / Time labetalol Allergy Hives Verified 06/09/25 19:52 sunflower seed Allergy Hives Verified 06/09/25 19:52 Review of Systems Review of Systems: Constitutional : No Weight loss, No Fever, No Chills, No Night Sweats, No Fatigue, No Malaise ENT/Mouth : No Hearing loss, No Ear Pain, No Nasal Congestion, No Sinus Pain, No Hoarseness, No sore throat, No Rhinorrhea, No Swallowing Difficulty Eyes: No Eye Pain, No Swelling, No Redness, No Foreign Body, No Discharge, No Vision Changes Cardiovascular : No Chest Pain, No SOB, No Dyspnea on Exertion, No Orthopnea, No Edema, No Palpitations Respiratory : No Cough, No Sputum, No Wheezing, No Smoke Exposure, No Dyspnea Gastrointestinal : No Nausea, No Vomiting, No Diarrhea, No Constipation, No abdominal Pain, No Hematochezia, No Melena Genitourinary : no irregular bleeding, No Dysuria, No Urinary Frequency, No Hematuria, No Urinary Incontinence, No Urgency, No Flank Pain, No Urinary Flow Changes, No Hesitancy Musculoskeletal : No joint pain, No Myalgias, No Joint Swelling Skin : Complaining of a laceration to the left index finger Neuro : No Weakness, No Numbness, No Paresthesias, No Loss of Consciousness, No Dizziness, No Headache Psych : No Anxiety/Panic, No Depression, No SI/HI/AH/VH, No Social Issues, Heme/Lymph: No Bruising, No Bleeding,No Lymphadenopathy Endocrine : No Polyuria, No Polydipsia, No Temperature Intolerance [facility] Past Medical History Medical History Perianal abscess Heart murmur Gestational diabetes Pre-eclampsia Hypertension PCOS (polycystic ovarian syndrome) Surgical History (Updated 05/16/25 @ 15:49 by Hyun Langford CMA) Hx of hand surgery Hx of section S/P gastric sleeve procedure Family History Family History Mother Stroke Hypertension Father No problems noted. Brother No problems noted. Brother No problems noted. Sister No problems noted. Sister No problems noted. Son Asthma ADHD Heart murmur Son No problems noted. 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 Oriented X3. No acute distress. Eyes: Pupils equal, round and reactive to light. ENT: Pharynx normal. Neck: Normal inspection. Neck supple. No lymph nodes noted. No crepitus CVS: Normal heart rate and rhythm. Pulses normal. Normal S1 and S2 Respiratory: No respiratory distress. Breath sounds normal. No Wheezing. No rales Abdomen: Soft and nontender. No rigidity. No distention. Skin: Skin warm and dry. Normal skin color. Normal skin turgor. Extremities: No lower extremity edema. No Lacerations. No Rash. Patient is able to flex and extend the fingers with normal range of motion. There is a laceration a proximally 1 cm under palmar aspect of the index finger of the left hand. Exam done under a bloodless field. There are no tendons or bone visualized Neuro: Oriented X 3. No motor deficit. No sensory deficit. Moving all extremities. No slurred speech. CN 2 through 12 grossly intact Psych: calm, cooperative, normal affect Vital Signs: Vital Signs - 24 hr 06/09/25 19:49 Temperature 97.1 F Pulse Rate 96 Respiratory Rate 17 Blood Pressure 197/121 H Pulse Oximetry 97 Oxygen Delivery Method Room Air BMI result Body Mass Index 38.4 Course Course Course Narrative: Rapid medical examination performed in triage by Jennifer Vargas PA-C. Patient is a 35 year old assigned female at presenting to the emergency department with a left index finger laceration. Patient states that she cut her left index finger cutting frozen spinach. Patient states that she is up to date on tetanus and has HTN for which she takes medication but did not today because she forgot her backpack. Detailed physical exam and review of systems are deferred to the speech clinician. Patient placed back in the waiting room pending room availability. Finger laceration needs sutures. Procedures Laceration Laceration 1: Site: hand (Left hand index finger) Side (If applicable): left Size (cm): 1 Description: linear Depth: simple, single layer Local Anesthetic: lidocaine 1% Amount of anesthesia used (mL): 4 Pre-repair: wound explored Skin layer closed with: nylon Size (cm): 4-0 Number of sutures: 3 Technique: simple, interrupted Medical Decision Making Medical Decision Making MDM Narrative: Patient received 3 stitches, bleeding controlled. Also, patient was given a booster of Tdap. Patient received 3 stitches, tolerated well the procedure Discharge Plan Discharge Clinical Impression: Finger laceration Patient Disposition: Home, Self-Care Instructions: Care For Your Stitches (ED), Finger Laceration (ED) Additional Instructions: Your stitches need to be removed in 7-10 days, bit can not be done at urgent Care, your primary care physician's office or here in the emergency room. If you see any signs of infections such as redness, pus drainage, fever chills, please return to the emergency room. Please follow-up with your primary care physician tomorrow. If you have any worsening or new symptoms, please return to the emergency room or call 911 Prescriptions: No Action hydroxyzine HCl 25 mg Tablet 25 mg PO TID PRN (Reason: Anxiety) albuterol sulfate 90 mcg/actuation Hfa Aerosol Inhaler 2 puff INHALATION Q4-6H PRN (Reason: Shortness Of Breath Or Wheezing) sertraline [Zoloft] 50 mg tablet 50 mg PO DAILY nifedipine 30 mg tablet extended release 30 mg PO DAILY Stand Alone Forms: Work/School Release Print Language: Moldovan
--- NOTE | 2025-06-09 21:52 | PC.NURSE ---
pt walking with slightly unsteady gait, felt like she was going to pass out d/t finger lac/blood. juice provided. pt laying in bed, 2 children in room. MD almodovar
--- OUTSIDE RECORDS SUMMARY | 2025-06-09 21:55 | XMS_ITS | Clinical Summary ---
Author Organization [address] Address [address] [place] [address] Phone Care Team Providers Care Chipping Machine Operator Name Role Phone Unavailable Primary Care Provider Unavailabl e Social History Tobacco Use Types Packs/Day Years Used Date Smoking Tobacco: Never Assessed Comments Unknown Sex and Gender Information Value Date Recorded Sex Assigned at Not on file Legal Sex Female 9:02 PM EDT Gender Identity Not on file Sexual Orientation Not on file Plan of Treatment Upcoming Encounters Date Type Department Care Team (Late st Contact Info) Description 06/27/2025 8:45 AM EDT Office Visit Adult Medicine [address] [phone] Diego Zepeda MD [address] [place] [address] Health Maintenance Due Date Last Done Comments DTaP,Tdap,and Td Vaccines (1 - Tdap) 2008 Hepatitis B Vaccines (1 of 3 - 19+ 3-dose series) 2008 Cervical Cancer Screening: P ap Smear 2010 COVID-19 Vaccine ( - 2023-2 5 season) 2024 Depression Screening 10/16/2024 HIV Screening 04/13/2025 Hepatitis C Screening 04/13/2025 Social Influencers of Health Screening 04/13/2025 Influenza Vaccine (#1) 2025 HIB Vaccines Aged Out No longer eligi ble based on patient's age to complete this topic HPV Vaccines Aged Out No longer eligi ble based on patient's age to complete this topic Hepatitis A Vaccines Aged Out No long er eligible based on patient's age to complete this topic IPV Vaccines Aged Out No longer eligi ble based on patient's age to complete this topic MMR Vaccines Aged Out No longer eligi ble based on patient's age to complete this topic Meningococcal ACWY Vaccine Aged Out N o longer eligible based on patient's age to complete this topic Meningococcal B Vaccine Aged Out No l onger eligible based on patient's age to complete this topic Pneumococcal Vaccine: Pediat rics (0 to 5 Years) and At-Risk Patients (6 to 49 Years) Aged Out No longer eligible b ased on patient's age to complete this topic RSV Immunization Patients Un ubaldo 20 months Aged Out No longer eligible b ased on patient's age to complete this topic Varicella Vaccines Aged Out No longer eligible based on patient's age to complete this topic
--- OUTSIDE RECORDS SUMMARY | 2025-06-09 21:55 | XMS_ITS | Clinical Summary ---
Author Organization [facility] Address [address] [place] [id number] Phone Care Team Providers Care Costing Manager Name Role Phone Basilia Beach Primary Care Provider [phone] Allergies Active Allergy Reactions Criticality Noted Date Comments Labetalol 04/10/2023 Lucas Hives,Rash,Shortness Of Breath,Swelling,Wheezing High 07/24/2023 Medications multivitamins [...] regarding plan of care. Female infertility 07/24/2023 Family History Medical History Relation Comments Heart [...] high school, GED, job training, learning the [place] language, technical skills, or developing parenting skills)? [...] your housing situation today? I have chidi singh 01/10/2025 How many times have you move [...] Description 09/17/2025 2:00 PM EST Office Visit [facility] [address] [place] [address] Tia Underwood, SOCIAL MEDIA MANAGER [address] [facility]nd [place] [address] [email or web address] Health Maintenance Due Date Last Done Comments SMOKING Hx and SMOKELESS TOBACCO SCREENING 2002 PAP SMEAR 2010 COVID-19 VACCINE ( - 2023-2 5 season) 2024 DEPRESSION SCREENING 01/10/2026 01/10/2025 [...] Procedure Name Priority Date/Time Associated Diagnosis Comments HEPATITIS C VIRAL LOAD (PCR) Routine 03/03/2025 10:27 AM EDT from Last 3 Months or Most Recently Relevant to Health Maintenance Results * Hepatitis C viral load (PCR) (03/03/2025 10:27 AM EDT) HCV RNA, Quantitative Real Time PCR <15 NOT DETECTED NOT DETECTED IU/mL [facility] HCV RNA, Quantitative Real Time PCR <1.18 NOT DETECTED NOT DETECTED Log IU/mL [facility] Comment: For additional information, please refer to http://education.GetNotes/faq/SXY50l0 (This link is being provided for informational/ educational purposes only.) 03/03/2025 10:2 7 AM EDT 03/05/2025 5:08 AM EDT Narrative [employer] [facility] - 03/07/2025 9:28 AM EDT FASTING: UNKNOWN Argenis Stone MD NON CULTURE MICROBIOLOGY Fi nal Result [employer] [address],[facility] [place] [address], [facility] [phone] [employer] [facility] [address] [place] [phone] from Last 3 Months or Most Recently Relevant to Health Maintenance Insurance [facility] NON NSPG PCP SILVER [employer] NON NSPG PCP SILVER [employer] CONNECTORCARE [employer] NON NSPG PCP SILVER CLARITY CONNECTORCARE [employer] NON NSPG PCP SILVER CLARITY CONNECTORCARE [employer] NON NSPG PCP SILVER CLARITY CONNECTORCARE [employer] NON NSPG PCP SILVER CLARITY CONNECTORCARE Care Teams Costing Manager Relationship Specialty Start Date End Date Basilia Beach PA [address] [place] [address] PCP - General Physician Facility Worker 12/11/24 Additional Source Comments The information contained in this document represents components of the legal health record. It is not the complete legal health record.[facility]
[2025-06-09 22:27] VITALS: BP 153/95; PULSE 76; RESP 16; TEMP 36.6; O2SAT 100
[2025-06-09] MEDS: Lidocaine HCl 1 % 20 ML VIAL 5 ML INFILTRATI (22:31)
[2025-06-09] MEDS: Diphth,Pertus(ACell),Tet Adult 0.5 ML SYRINGE IM (22:31)
[2025-06-09 22:36] VITALS: BP 153/95; PULSE 76; RESP 16; TEMP 36.6; O2SAT 100
== END 2025-06-09 22:37 | disposition home or self-care (01) ==
PROVIDERS: Emergency Provider Emergency Medicine; PCP Physician Assistant
DX: S61.211A Laceration without foreign body of left index finger without damage to nail, initial encounter (principal); M79.642 Pain in left hand; W26.0XXA Contact with knife, initial encounter; Y93.G3 Activity, cooking and baking; Y92.9 Unspecified place or not applicable; Y99.8 Other external cause status; Z23 Encounter for immunization
CPT/HCPCS: 12001; 90471; 90715; 99283; 99284; J2003

== ENCOUNTER 2025-10-13 11:22 | Emergency (ER) | payer OTHER, SELFPAY ==
--- NOTE | ~2025-10-13 | XR_ITS ---
EXAMINATION: XR HAND 3 OR MORE VIEWS RIGHT, XR WRIST 3 OR MORE VIEWS RIGHT HISTORY: pain, injury COMPARISON: Comparison is made with the prior examination dated 04/05/2023. FINDINGS: Seven views of the right wrist and hand, including a scaphoid view are submitted. Osseous mineralization is normal. There is no fracture or dislocation. The joint spaces are preserved. The soft tissues are unremarkable. XR/XR wrist RT min 3V IMPRESSION: No evidence of fracture of the right wrist and hand. Electronically signed by: Zander Hennessy MD 10/13/2025 12:20 PM [facility]
--- NOTE | ~2025-10-13 | CT_ITS ---
EXAMINATION: CT HEAD WITHOUT IV CONTRAST HISTORY: head injury, pain. TECHNIQUE: Unenhanced helical CT of the head was performed per standard departmental protocol. Coronal and sagittal reformats of the head were also evaluated. One or more of the following techniques was used for dose reduction: Automated exposure control, adjustment of the mA and/or kV according to patient size, use of iterative reconstruction technique. DLP: 641 mGy-cm COMPARISON: There are no prior studies available for comparison. FINDINGS: BRAIN: The brain parenchyma is unremarkable. There is normal carlos/white differentiation. The ventricular system is normal in size and configuration. There is no mass effect or midline shift. No intra- or extra-axial fluid collections are identified. SINUSES: The visualized paranasal sinuses are clear. The mastoid air cells and middle ear cavities are well pneumatized. ORBITS: The visualized orbits are unremarkable. BONES/SOFT TISSUES: The extracranial soft tissues are unremarkable. The calvarium is intact. No suspicious lytic or sclerotic lesions. CT/CT head/brain wo IV con IMPRESSION: No acute intracranial abnormality. Electronically signed by: Isaura Smyth MD 10/13/2025 12:43 PM [facility]
--- NOTE | ~2025-10-13 | XR_ITS ---
EXAMINATION: XR CHEST 2 VIEWS HISTORY: pain, weakness COMPARISON: Comparison is made with the prior examination dated 05/21/2023. FINDINGS: PA and lateral views of the chest are submitted. The lungs are expanded and clear. There is no pleural effusion, pneumothorax, or pulmonary vascular congestion. The heart is normal in size. The bones are intact. XR/XR chest 2V IMPRESSION: No acute cardiopulmonary abnormality. Electronically signed by: Zander Hennessy MD 10/13/2025 12:21 PM [facility]
--- NOTE | ~2025-10-13 | XR_ITS ---
EXAMINATION: XR HAND 3 OR MORE VIEWS RIGHT, XR WRIST 3 OR MORE VIEWS RIGHT HISTORY: pain, injury COMPARISON: Comparison is made with the prior examination dated 04/05/2023. FINDINGS: Seven views of the right wrist and hand, including a scaphoid view are submitted. Osseous mineralization is normal. There is no fracture or dislocation. The joint spaces are preserved. The soft tissues are unremarkable. XR/XR hand RT min 3V IMPRESSION: No evidence of fracture of the right wrist and hand. Electronically signed by: Zander Hennessy MD 10/13/2025 12:20 PM [facility]
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
[2025-10-13 11:44] VITALS: BP 143/102; PULSE 74; RESP 18; TEMP 36.3; O2SAT 100; BMI 34.9
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
--- NOTE | 2025-10-13 12:12 | MHC.EDTECH ---
called patient no response. nurse aware
--- OUTSIDE RECORDS SUMMARY | 2025-10-13 17:57 | XMS_ITS | Clinical Summary ---
Author Organization [facility] Address [address] [place] [address] [place] [phone] Phone Care Team Providers Care Mastic Floor Layer Name Role Phone Ruth Huber Primary Care Provider [phone] Allergies Active Allergy Reactions Criticality Noted Date Comments Labetalol 04/10/2023 Mcmullen Hives,Rash,Shortness Of Breath,Swelling,Wheezing High 07/24/2023 Medications cetirizine (ZYRTEC) 10 MG tablet Take 10 mg by mouth. 3 Active fluticasone propionate (FLOVENT HFA) 44 mcg/actuation inhaler Inhale into the lungs. 3 Active sertraline (ZOLOFT) 50 MG tablet Take 25 mg by mouth daily. 3 Active NIFEdipine (ADALAT CC) 30 MG 24 hr tablet Take 30 mg by mouth daily. Active hydrOXYzine (ATARAX) 25 MG tablet Take 25 mg by mouth 3 (three) times a day as needed for itching. Active ferrous sulfate 325 mg (65 mg orutsararmiut iron) tablet Take 325 mg by mouth 3 (three) times a week. Active EPINEPHrine 0.3 mg/0.3 mL auto-injector Inject 0.3 mg into the muscle as needed for anaphylaxis . Active tirzepatide, weight loss, (ZEPBOUND) 10 mg/0.5 mL subcutaneous penIndications:Cl ass 1 obesity with serious comorbidity and body mass index (BMI) of 34.0 to 34.9 in adult, unspecified obesity type,Prediabetes Inject 0.5 mL (10 mg total) under the skin every 7 days. 2 mL 5 Active tirzepatide, weight loss, (ZEPBOUND) 7.5 mg/0.5 mL subcutaneous penIndications:Cl ass 2 severe obesity with serious comorbidity and body mass index (BMI) of 38.0 to 38.9 in adult, unspecified obesity type Inject 0.5 mL (7.5 mg total) under the skin every 7 days. 2 mL 5 09/26/20 25 Discontinu ed(No longer taking) Hospital, Clinic, or Other Facility Administered Medication Ordered Dose Route Frequency Start Date End Date Status etonogestreL (NEXPLANON) subdermal implant 68 mg 68 mg IDrm Every 3 years 09/10/2025 Active Active Problems Problem Noted Date Diagnosed Date Uterine leiomyoma 09/10/2025 Prediabetes 06/18/2025 Allergic rhinitis 06/17/2025 Depression 05/06/2024 Frequent PVCs 11/08/2023 History of sleeve gastrectomy 11/08/2023 PCOS (polycystic ovarian syndrome) 07/24/2023 Assessment & [...] regarding plan of care. 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 Lost to 190 lb AOMs tried: topiramate, zepbound Contraindication to phentermine: HTN, frequent PVCs Assessment & Plan (09/19/2025 1:37 PM EST): She is doing well on Zepbound. She is following dietary recommendations. She is going to increase strength training. She is going to increase her water intake to 64 ounces a day. Increase Zepbound dose to 10 mg. Follow-up in clinic in 3 months. Assessment & Plan (06/18/2025 12:11 PM EDT): Pt was educated on the pathophysiology of obesity, which is a chronic, relapsing, often progressive neuroendocrine disease with behavioral components. We discussed treatment approaches including lifestyle changes, pharmacotherapy & bariatric surgery. We discussed their personal treatment goals. We discussed targeting a weight loss goal of 5-10% over the next 6 months as this modest amount of weight loss has been shown to decrease blood pressure, insulin resistance, sleep apnea, liver inflammation, arthritic pain and improve dyslipidemia. Had recent labs w PCP. Will request copy Patient was given the initial meal plan and exercise recommendations. I recommend patient work with our dietitian, Teresita Carson RD and have asked them to schedule an appt. I have recommended the following Anti-Obesity Medication: Tirzepatide They will start at 2.5 mg q week x 4 wk, then if tolerated we can titrate every 4 weeks The patient has completed > 6 months of efforts focused on dietary and lifestyle changes and has been unsuccessful in reaching their weight loss goals. I have explained that this medication decreases appetite & food cravings and increases feeling of fullness. I have reviewed the following possible side effects: Nausea, vomiting, constipation, gastroparesis, SBO, pancreatitis, gallstones, optic neuropathy, low blood sugar and in rat studies an increased risk of medullary thyroid cancer and MEN2. This medication is not recommended in and in patients with a personal or family history of medullary thyroid cancer or multiple endocrine neoplasia 2A or 2B. We also discussed health insurance inflicted barriers to obtaining GLP1RA and possible need for prior authorization & appeal Hypertension 04/07/2014 Resolved Problems Problem Noted Date Diagnosed Date Resolved Date Diabetes, gestational 06/17/20252024 Encounters Date Type Department Care Team Description 09/19/2025 1:15 PM EST Office Visit [facility] [address] [place] [address] Tia Underwood, PATRICE Class 1 obesity with serious comorbidity and body mass index (BMI) of 34.0 to 34.9 in adult, unspecified obesity type (Primary Dx); Prediabetes 09/10/2025 2:10 PM EST Office Visit [facility] Gyne[facility] [address] [place] [address] [place] [address] Bassam Underwood MD Abnormal uterine bleeding (AUB) (Primary Dx); Uterine leiomyoma, unspecified location; Nexplanon insertion 08/25/[address] [facility] [address] [place] [address] Ruben Mckeon PA 07/16/2025 3:30 PM EDT Nutrition [facility] [address] [place] [address] Tuyet Carson LDN Obesity (BMI 30-39.9) (Primary Dx) from Last 3 Months Family History Medical History Relation Comments Heart attack Maternal Grandfather Heart failure Maternal Grandmother Heart murmur Mother Stroke Mother Heart murmur Son Relation Status Comments Father Maternal Grandfather Maternal Grandmother Mother Alive Son Alive Social History Tobacco Use Types Packs/Day Years Used Date Smoking Tobacco: Former Cigarettes Passive Smoke Exposure: Never Smokeless Tobacco: Never Tobacco Cessation:Counseling Given: Not Answered Alcohol Use Standard Drinks/Week Comments Not Currently [...] high school, GED, job training, learning the Nepalese language, technical skills, or developing parenting skills)? No 01/10/2025 Are you concerned about learning? Not on file 01/10/2025 No 01/10/2025 Yes 01/10/2025 Food Answer Date Recorded Within the past 6 months we worried whether our food would run out before we got money to buy more. Never True 06/30/2025 Within the past 6 months the food we bought just didn't last and we didn't have enough money to get more. Never True Residential Stability Answer Date Recor ded What is your housing situation today? I have chidi sing 06/30/2025 How many times have you move d in the past 12 months? Zero (I did not move) 06/30/2025 Paying for Meds Answer Date Recorded Do you have trouble paying for medicines? No 06/30/2025 Paying Utility Bills Answer Date Record ed Do you have trouble paying your heating or elect ricity bill? No 06/30/2025 Transportation Answer Date Recorded Has the lack of transportati on kept you from medical appointments or from getting medications? No 06/30/2025 Unemployment Answer Date Recorded Are you currently unemployed or working on a part-time or temporary basis, and looking for work? No 01/10/2025 Digital Access Answer Date Recorded No 06/30/2025 Yes 06/30/2025 Do you have reliable internet access at home? Ye s 06/30/2025 Do you have a device (e.g., phone, tablet, computer) with a working camera? Yes 06/30/2025 Intimate Partner Violence Answer Date R ecorded Are you denied basic needs s uch as food, clothing, or medical care? No 06/30/2025 In the past 12 months have y ou been in a relationship with a person who hurts, threatens, or tries to control you? No 06/30/2025 Are you denied basic needs s uch as food, clothing, or medical care? No 06/30/2025 In the past 12 months have y ou been in a relationship with a person who hurts, threatens, or tries to control you? No 06/30/2025 Comments No Sex and Gender Information Value Date Recorded Sex Assigned at Female 11/27/2024 12:45 PM EST Legal Sex Female 9:22 AM EDT Gender Identity Female 11/27/2024 12:45 PM EST Sexual Orientation Straight 11/27/2024 12 :45 PM EST Last Filed Vital Signs Vital Sign Reading Time Taken Comments Blood Pressure 130/82 09/19/2025 1:08 PM EST Pulse 93 09/19/2025 1:08 PM EST Temperature 36.6 C (97.9 F) 09/19/2025 1:08 PM EST Respiratory Rate 18 06/30/2025 1:35 PM EDT Oxygen Saturation 98% 09/19/2025 1:08 PM EST Inhaled Oxygen Concentration - - Weight 97.4 kg (214 lb 12.8 oz) 09/19/2025 1:08 PM EST Height 167.6 cm (5' 6 ) 09/19/2025 1:08 PM EST Body Mass Index 34.67 09/19/2025 1:08 PM EST Plan of Treatment Upcoming Encounters Date Type Department Care Team (Late st Contact Info) Description 10/29/2025 1:10 PM EST Appointment [facility] OB Ultrasound [address] [place] [address] Bassam Underwood MD [address] [place] [phone] 10/29/2025 2:30 PM EST Office Visit [facility] Ob[facility]etrics [facility] Gynecology Clinic [address] [place] [address] Bassam Underwood MD [address] [place] [phone] 12/05/2025 8:30 AM EST Office Visit [facility] General Surgery Clinic [address] [place] [address] Tia Underwood, CHAIN BUILDER [address] [facility], 2nd [place] [address] 12/26/2025 1:45 PM EDT Office Visit [facility] General Surgery Clinic [address] [place] [address] Tia Underwood, CHAIN BUILDER [address] [facility], 2nd [place] [address] [email or web address] Health Maintenance Due Date Last Done Comments SMOKING Hx and SMOKELESS TOBACCO SCREENING 2002 PAP SMEAR 2010 INFLUENZA VACCINE (#1) 2025 COVID-19 VACCINE ( - 2024-2 6 season) 2025 DEPRESSION SCREENING 01/10/2026 01/10/2025 BLOOD PRESSURE 03/20/2026 09/19/2025 SCREENING FOR DIABETES 06/30/2028 , 04/10/2023 Contraceptive Implant 09/10/2028 09/10/2025 Adult Td,Tdap Booster 06/09/2035 06/09/2025 , 08/14/2017 HEPATITIS C SCREENING Completed 03/03/2025 , [...] Procedure Name Priority Date/Time Associated Diagnosis Comments POCT URINE HCG Routine 09/10/2025 2:42 PM EST Nexplanon insertion HEPATITIS C VIRAL LOAD, PCR Routine 03/03/2025 10:27 AM EDT from Last 3 Months or Most Recently Relevant to Health Maintenance Results * POCT Urine HCG (Enter/Edit) (09/10/2025 2:42 PM EST) HCG, urine Negative, Internal QCs acceptable Negative [facility] 09/10/2025 2:42 PM EST us Bassam Underwood MD LAB POCT ENTER/EDIT VANESSA ENCINAS Final Result [facility] [address] [place] [address], [facility] * Hepatitis C viral load (PCR) (03/03/2025 10:27 AM EDT) HCV RNA, Quantitative Real Time PCR <15 NOT DETECTED NOT DETECTED IU/mL [facility] [place] [employer] HCV RNA, Quantitative Real Time PCR <1.18 NOT DETECTED NOT DETECTED Log IU/mL [facility] [place] [employer] Comment: For additional information, please refer to http://education.Avent[employer]/faq/LRJ30v7 (This link is being provided for informational/ educational purposes only.) 03/03/2025 10:2 7 AM EDT 03/05/2025 5:08 AM EDT Narrative [facility] - 03/07/2025 9:28 AM EDT FASTING: UNKNOWN Argenis Stone MD LAB BLOOD BKR ORDERABLES Fi nal Result Performing Organization Address City/[facility] [address]/ZIP Co de Phone Number [facility] [address] [place] [address],[place] [address], [facility] [phone] [facility] [place] [email or web address] [address] [place] [phone] from Last 3 Months or Most Recently Relevant to Health Maintenance [facility] PCP [employer] NON NSPG PCP [employer] NON NSPG PCP S[employer] NON NSPG PCP SILVER [employer]ITY CONNE[employer]CARE [employer] NON NSPG PCP SILVER [employer]ITY CONNE[employer]ARE [employer] NON NSPG PCP SILVER [employer] NON NSPG PCP S[employer] Care Teams Mastic Floor Layer Relationship Specialty Start Date End Date Ruth Huber PA [address] [place] [phone] [email or web address] PCP - General Physician Systems Security Consultant 06/18/25 Additional Source Comments The information contained in this document represents components of the legal health record. It is not the complete legal health record.[facility]
== END 2025-10-13 16:15 | disposition left against medical advice (07) ==
PROVIDERS: Emergency Provider Emergency Medicine
DX: M54.2 Cervicalgia (principal); R51.9 Headache, unspecified; M79.641 Pain in right hand; M54.50 Low back pain, unspecified; R07.89 Other chest pain; Z79.899 Other long term (current) drug therapy
CPT/HCPCS: 70450; 71046; 72125; 73110; 73130; 93005; 99283

== ENCOUNTER → 2025-10-13 11:47 | Outpatient (BNV) | payer OTHER, SELFPAY | PROVIDERS: Emergency Provider Emergency Medicine; Visit Provider Internal Medicine | DX: R53.1 Weakness (principal) | CPT/HCPCS: 93010 ==

== ENCOUNTER → 2025-10-13 11:47 | Outpatient (BNV) | payer OTHER, SELFPAY | PROVIDERS: Visit Provider Radiology Diagnostic Radiology | DX: M54.2 Cervicalgia (principal); S09.90XA Unspecified injury of head, initial encounter; M25.531 Pain in right wrist; R07.9 Chest pain, unspecified; R53.1 Weakness; M79.641 Pain in right hand | CPT/HCPCS: 70450; 71046; 72125; 73110; 73130 ==